=== PATIENT | female | born 1960 | race Caucasian/White ===

== ENCOUNTER 2023-11-21 13:05 | Inpatient (IN) | payer OTHER, SELFPAY ==
--- OUTSIDE RECORDS SUMMARY | 2023-11-21 13:12 | XMS REPORT | Continuity of Care Document ---
Author Name Unknown Address [address] [facility] [address] [place] [address] [facility] thconnect Address [address] [facility] [address] [place] [address] Care Team Providers Care Stenciler Name Role Phone Dvae Jesus Steen Primary Care Physician [phone] Micki Kennedy LVN Attending Clinician [phone] CECILIO LANGE Attending Clinician Unavailable Dilan Montemayor DO Attending Clinician [phone] Cecilio Lange MD Attending Clinician [phone] ADILIA GONZALEZ Attending Clinician Unavailable Adilia Gonzalez NP Attending Clinician [phone] Doctor Unassigned, [place] [facility] Attending Clinician U TIGIST Wahl Attending Clinician Unavailable Abida Haysise Attending Clinician [phone] DILAN MONTEMAYOR Attending Clinician Unavailable Renetta Attending Clinician Unavailable MIKEY CORTEZ Attending Clinician Unavailable Mikey Cortez MD Attending Clinician [phone] Josi MCDERMOTT, Amanda Dee Attending Clinician [phone] Mirta Santos Attending Clinician [phone] Namita Esposito MD Attending Clinician [phone] Sachin Caicedo MD Attending Clinician [phone] Mirta OJEDA Attending Clinician Unavailable Kady Armendariz MD Attending Clinician [phone] KADY ARMENDARIZ Attending Clinician Unavailable Rylan Garcia MD Attending Clinician [phone] Diana Maguire MD Attending Clinician [phone] RYLAN GARCIA Attending Clinician Unavailable CECILIO LANGE Admitting Clinician Unavailable Cecilio Lange MD Admitting Clinician [phone] ADILIA GONZALEZ Admitting Clinician Unavailable DILAN MONTEMAYOR Admitting Clinician Unavailable Renetta Admitting Clinician Unavailable MIKEY CORTEZ Admitting Clinician Unavailable Namita Esposito MD Admitting Clinician [phone] Mirta OJEDA Admitting Clinician Unavailable Diana Maguire MD Admitting Clinician [phone] KADY ARMENDARIZ Admitting Clinician Unavailable Payers Payer Name Policy Type Policy Number Effective Date Expirati on Date Source Problems Condition Name Condition Details Condition Category Status Onset Date Resolution Date Last Treatment Date Treating Clinician Comments Source Acute respirator y failure with hypoxia Acute respirator y failure with hypoxia Disease Active 02-13 00:00: 00 [facility] Hypoxia Hypoxia Disease Active 07-16 00:00: 00 [facility] Cellulitis of finger of right hand Cellulitis of finger of right hand Disease Active 2019-10 0 00:00: 00 [facility] Allergies, Adverse Reactions, Alerts Allergy Name Allergy Type Status Severity Reaction(s) Onset Date Inactive Date Treating Clinician Comments Source IBUPROFE N DRUG INGREDI Active Anaphylaxis 0 -13 00:00: 00 [facility] NSAIDS (NON-ATUL ROIDAL ANTI-INF LAMMATOR Y DRUG) Drug Class Active Anaphylaxis 2019-0 5-13 00:00: 00 [facility] Nsaids (Non-Atul roidal Anti-Inf lammator y Drug) Propensi ty to adverse reaction s Active Anaphylaxis 0 13 00:00: 00 [facility] Nsaids (Non-Atul roidal Anti-Inf lammator y Drug) Propensi ty to adverse reaction s Active Anaphylaxis 0 -13 00:00: 00 [facility] Ibuprofe n Propensi ty to adverse reaction s Active Anaphylaxis 0 03-08 00:00: 00 [facility] Nsaids (Non-Atul roidal Anti-Inf lammator y Drug) Propensi ty to adverse reaction s Active Anaphylaxis 0 03-08 00:00: 00 [facility] NSAIDS (NON-ATUL ROIDAL ANTI-INF LAMMATOR Y DRUG) Allergy to substanc e Active [facility] Social History Social Habit Start Date Stop Date Quantity Comments Source Sex Assigned At [facility] History of tobacco use Smokes tobacco daily [facility] History SDOH Alcohol Std Drinks [facility] History SDOH Alcohol Binge [facility] History SDOH Social Connections Get Together [facility] History SDOH Social Connections Judaism [facility] History SDOH Social Connections Membership [facility] History SDOH Social Connections Meetings [facility] Alcohol Frequency 2023-02-14 00:00:00 2023-02-14 00:00:00 1 [facility] History SDOH Social Connections Phone 2023-02-14 00:00:00 2023-02-14 00:00:00 5 [facility] History SDOH Social Connections Living 2023-02-14 00:00:00 2023-02-14 00:00:00 3 [facility] History SDOH Physical Activity DPW 2023-02-14 00:00:00 2023-02-14 00:00:00 3 [facility] History SDOH Physical Activity MPS 2023-02-14 00:00:00 2023-02-14 00:00:00 2 [facility] History SDOH Financial 2023-02-14 00:00:00 2023-02-14 00:00:00 5 [facility] History SDOH Food Worry 2023-02-14 00:00:00 2023-02-14 00:00:00 1 [facility] History SDOH Food Scarcity 2023-02-14 00:00:00 2023-02-14 00:00:00 1 [facility] History SDOH Transport Med 2023-02-14 00:00:00 2023-02-14 00:00:00 2 [facility] History SDOH Transport Non-Med 2023-02-14 00:00:00 2023-02-14 00:00:00 2 [facility] History SDOH Housing Unable to Pay 2023-02-14 00:00:00 2023-02-14 00:00:00 1 [facility] History SDOH Housing Places Lived 2023-02-14 00:00:00 2023-02-14 00:00:00 1 [facility] History SDOH Housing Homeless Last Year 2023-02-14 00:00:00 2023-02-14 00:00:00 2 [facility] History of Social function 2023-02-14 00:00:00 2023-02-14 00:00:00 [facility] Exposure to SARS-CoV-2 (event) 2023-02-03 00:00:00 2023-02-13 16:23:00 Not sure [facility] Education 2023-02-13 00:00:00 2023-02-13 00:00:00 13 [facility] Alcohol intake 2022-06-11 00:00:00 2022-06-11 00:00:00 Current drinker of alcohol (finding) [facility] Tobacco Comment 2020-08-20 00:00:00 2020-08-20 00:00:00 10 cig/day [facility] Tobacco use and exposure 2020-08-20 00:00:00 2020-08-20 00:00:00 Smokeless tobacco non-user [facility] Smoking Status Start Date Stop Date Source Unknown if ever smoked [facility] Smokes tobacco daily 2020-08-20 00:00:00 [facility] Medications Ordered Medication Name Filled Medication Name Start Date Stop Date Current Medication? Ordering Clinician Indication Dosage Frequency Signature (SIG) Comments Components Source nicotine 21 mg/24 hr patch 02-20 00:00: 00 03-21 04:59 :00 No [id number] 1{patch } Apply 1 Patch to area(s) every 24 (twenty-fo ur) hours for 28 days. [facility] nicotine 21 mg/24 hr patch 02-20 00:00: 00 03-21 04:59 :00 No [id number] 1{patch } Apply 1 Patch to area(s) every 24 (twenty-fo ur) hours for 28 days. [facility] predniSONE 20 mg tablet 02-20 00:00: 00 02-24 04:59 :00 No [id number] 40mg Take 2 tablets by mouth in the morning for 3 days. [facility] predniSONE 20 mg tablet 02-20 00:00: 00 02-24 04:59 :00 No [id number] 40mg Take 2 tablets by mouth in the morning for 3 days. [facility] omeprazole 20 mg capsule 02-19 16:02: 07 Yes 20mg Take 1 capsule by mouth in the morning. [facility] zolpidem (AMBIEN) 10 mg tablet 02-19 16:02: 07 Yes 10mg Take 1 tablet by mouth at bedtime as needed for Insomnia. [facility] HYDROcodone -acetaminop hen (NORCO) 10-325 mg tablet 02-19 16:02: 07 Yes 1{tbl} Take 1 tablet by mouth every 6 (six) hours as needed. [facility] omeprazole 20 mg capsule 02-19 16:02: 07 Yes 20mg Take 1 capsule by mouth in the morning. [facility] zolpidem (AMBIEN) 10 mg tablet 02-19 16:02: 07 Yes 10mg Take 1 tablet by mouth at bedtime as needed for Insomnia. [facility] HYDROcodone -acetaminop hen (NORCO) 10-325 mg tablet 02-19 16:02: 07 Yes 1{tbl} Take 1 tablet by mouth every 6 (six) hours as needed. [facility] omeprazole 20 mg capsule 02-19 16:02: 07 Yes 20mg Take 1 capsule by mouth in the morning. [facility] levoFLOXaci n (LEVAQUIN) tablet 750 mg 02-19 00:30: 00 02-22 00:29 :00 No 750mg 750 mg, Oral, Q24H ABX, 3 doses, First dose on Fri02/18/23 at 1930, Last dose on Fri02/20/23 at 1930, Routine
Reason for Anti-Infec tive: Documented Infection< br>Documen david Infection Site: Respirator y
Durat ion of Therapy: 7 days [facility] albuterol 90 mcg/actuati on inhaler 02-19 00:00: 00 03-22 04:59 :00 No [id number] 2{puff} Inhale 2 Puffs every 6 (six) hours as needed for Wheezing or Shortness of Breath for up to 30 days. [facility] ipratropium -albuteroL 0.5 mg-3 mg(2.5 mg base)/3 mL nebulizer solution 02-19 00:00: 00 03-22 04:59 :00 No [id number] 3mL Inhale 3 mL 4 (four) times daily for 30 days. [facility] albuterol 90 mcg/actuati on inhaler 02-19 00:00: 00 03-22 04:59 :00 No [id number] 2{puff} Inhale 2 Puffs every 6 (six) hours as needed for Wheezing or Shortness of Breath for up to 30 days. [facility] ipratropium -albuteroL 0.5 mg-3 mg(2.5 mg base)/3 mL nebulizer solution 02-19 00:00: 00 03-22 04:59 :00 No [id number] 3mL Inhale 3 mL 4 (four) times daily for 30 days. [facility] levoFLOXaci n 750 mg tablet 02-19 00:00: 00 02-22 04:59 :00 No [id number] 750mg Take 1 tablet by mouth every 24 (twenty-fo ur) hours for 2 days. [facility] levoFLOXaci n 750 mg tablet 02-19 00:00: 00 02-22 04:59 :00 No [id number] 750mg Take 1 tablet by mouth every 24 (twenty-fo ur) hours for 2 days. [facility] codeine-gua ifenesin (ROBITUSSIN AC) 10-100 mg/5 mL oral solution 5 mL 02-16 07:00: 00 Yes 5mL 5 mL, Oral, Q6HPRN, Starting on Fri02/16/23 at 0200, Until Discontinu ed, Routine, Cough [facility] ipratropium (ATROVENT) 0.02 % nebulizer solution 0.5 mg 02-15 01:00: 00 Yes .5mg 0.5 mg, Inhalation , TID, First dose (after last modificati on) on Fri02/14/23 at 2000, Until Discontinu ed, Routine [facility] predniSONE (DELTASONE) tablet 40 mg 02-14 23:00: 00 Yes 40mg 40 mg, Oral, DAILY, First dose on Fri02/14/23 at 1800, Until Discontinu ed, Routine [facility] cefTRIAXone (ROCEPHIN) 1,000 mg in NaCl 0.9% (NS) 100 mL MINI-BAG 02-14 22:30: 00 02-20 22:29 :00 No 1000mg 1,000 mg, IV Piggyback, Q24H ABX, 6 doses, First dose on Fri02/14/23 at 1730, Last dose on Fri02/19/23 at 1730, Administer over 30 Minutes, 100 mL
Reas on for Anti-Infec tive: Documented Infection< br>Documen david Infection Site: Respirator y
Durat ion of Therapy: 7 days [facility] levalbutero l (XOPENEX) nebulizer solution 0.63 mg 02-14 19:00: 00 Yes .63mg 0.63 mg, Inhalation , TID, First dose on Fri02/14/23 at 1400, Until Discontinu ed, Routine [facility] nicotine (NICODERM) 21 mg/24 hr patch 1 Patch 02-14 18:15: 00 Yes 1{patch } 1 Patch, Topical, Administer over 24 Hours, Q24H, First dose on Fri02/14/23 at 1315, Until Discontinu ed, Routine [facility] morpHINE (2 mg/mL) injection 2 mg 02-14 18:15: 00 02-14 17:30 :00 No 2mg 2 mg, Slow IV Push, ONCE, 1 dose, On Fri02/14/23 at 1315, Routine [facility] codeine-gua ifenesin (ROBITUSSIN AC) 10-100 mg/5 mL oral solution 5 mL 02-14 17:30: 00 02-16 06:57 :51 No 5mL 5 mL, Oral, QHSPRN, Starting on Fri02/14/23 at 1230, Until Fri02/16/23 at 0157, Routine, Cough [facility] ipratropium (ATROVENT) 0.02 % nebulizer solution 0.5 mg 02-14 17:30: 00 02-14 19:44 :14 No .5mg 0.5 mg, Inhalation , QID, First dose on Fri02/14/23 at 1230, Until Discontinu ed, Routine [facility] enoxaparin (LOVENOX) injection 40 mg 02-14 14:00: 00 Yes 40mg 40 mg, Subcutaneo us, DAILY, First dose on Fri02/14/23 at 0900, Until Discontinu ed, [facility] omep[facility] (PRILOSEC) capsule 20 mg 02-14 14:00: 00 Yes 20mg 20 mg, Oral, DAILY, First dose on Fri02/14/23 at 0900, Until Discontinu ed, Routine [facility] tuberculin ppd (TUBERSOL) injection 5 Units 02-14 14:00: 00 02-14 14:00 :00 No 5U 5 Units, Intraderma l, ONCE, 1 dose, On Fri02/14/23 at 0900, Routine [facility] NaCl 0.9% (NS) IV infusion 1,000 mL 02-14 11:15: 00 02-14 15:13 :00 No 1000mL at 75 mL/hr, IV Infusion, ONCE, 1 dose, On Fri02/14/23 at 0615, Routine [facility] HYDROcodone -acetaminop hen (NORCO) 10-325 mg tablet 1 tablet 02-14 10:15: 13 Yes 1{tbl} 1 tablet, Oral, Q6HPRN, Starting on Fri02/14/23 at 0515, Until Discontinu ed, Routine, Pain (scale 7-10) [facility] codeine-gua ifenesin (ROBITUSSIN AC) 10-100 mg/5 mL oral solution 5 mL 02-14 07:49: 44 02-14 17:23 :58 No 5mL 5 mL, Oral, Q6HPRN, Starting on Fri02/14/23 at 0249, Until Fri02/14/23 at 1223, Routine, Cough [facility] zolpidem (AMBIEN) tablet 10 mg 02-14 02:16: 33 Yes 10mg 10 mg, Oral, QHSPRN, Starting on Fri02/13/23 at 2115, Until Discontinu ed, Routine, Insomnia [facility] ondansetron (ZOFRAN (PF)) injection 4 mg 02-14 02:15: 39 Yes 4mg 4 mg, Slow IV Push, Q6HPRN, Starting on Fri02/13/23 at 211, Until Discontinu ed, Routine, Nausea and Vomiting (N/V) [facility] HYDROcodone -acetaminop hen (NORCO) 10-325 mg tablet 1 tablet 02-14 02:15: 31 02-14 09:38 :25 No 1{tbl} 1 tablet, Oral, Q6HPRN, Starting on Fri02/13/23 at 2115, Until Fri02/14/23 at 0438, Routine, Pain (scale 7-10) [facility] HYDROcodone -acetaminop hen (NORCO 5) 5-325 mg tablet 1 tablet 02-14 02:15: 20 Yes 1{tbl} 1 tablet, Oral, Q6HPRN, Starting on Fri02/13/23 at 2114, Until Discontinu ed, Routine, Pain (scale 4-6) [facility] acetaminoph en (TYLENOL) tablet 650 mg 02-14 02:15: 17 Yes 650mg 650 mg, Oral, Q6HPRN, Starting on Fri02/13/23 at 2114, Until Discontinu ed, Routine, Pain (scale 1-3) [facility] azithromyci n (ZITHROMAX) 500 mg in NaCl 0.9% (NS) 250 mL VIAL-MATE IV piggyback 02-13 23:45: 00 02-16 00:44 :00 No 500mg 500 mg, IV Piggyback, Q24H ABX, 3 doses, First dose on Fri02/13/23 at 1845, Last dose on Fri02/15/23 at 1845, Administer over 60 Minutes, 250 mL
Reas on for Anti-Infec tive: Documented Infection< br>Documen david Infection Site: Respirator y
Durat ion of Therapy: Other (see Comments) [facility] ipratropium -albuteroL (DUONEB) 0.5 mg-3 mg(2.5 mg base)/3 mL nebulizer solution 3 mL 02-13 23:15: 00 02-13 22:12 :00 No 3mL 3 mL, Inhalation , ONCE, 1 dose, On Lara 02/13/23 at 1815, Routine [facility] methylpredn isolone sod succ (SOLU-MEDRO L) injection 125 mg 02-13 23:00: 00 02-13 22:15 :00 No 125mg 125 mg, Intravenou s, ONCE NOW, 1 dose, On Lara 02/13/23 at 1800, Routine [facility] cefTRIAXone (ROCEPHIN) 1,000 mg in NaCl 0.9% (NS) 100 mL MINI-BAG 02-13 22:00: 00 02-13 23:01 :00 No 1000mg 1,000 mg, IV Piggyback, ONCE, 1 dose, On Lara 02/13/23 at 1700, Administer over 30 Minutes, 100 mL
Reas on for Anti-Infec tive: Empiric Therapy for Suspected Infection< br>Empiric Therapy Site: Respirator y
Durat ion of therapy: 72 hours [facility] ondansetron (ZOFRAN (PF)) injection 4 mg 02-13 21:45: 00 02-13 21:31 :00 No 4mg 4 mg, Slow IV Push, ONCE, 1 dose, On Lara 02/13/23 at 1645, MALLORIE [facility] iopamidol (ISOVUE 370-500 mL) injection 70 mL 02-13 21:39: 00 02-13 21:40 :00 No [id number] 70mL 70 mL, Intravenou s, ONCE, 1 dose, On Lara 02/13/23 at 1700, Routine [facility] acetaminoph en (TYLENOL) tablet 1,000 mg 02-13 21:30: 00 02-13 21:31 :00 No 1000mg 1,000 mg, Oral, ONCE, 1 dose, On Lara 02/13/23 at 1645, [facility] magnesium sulfate in water 2 gram/50 mL (4 %) infusion 2 g 2021-10 203 08:15: 00 09-28 08:37 :00 No 2g 2 g, IV Piggyback, Administer over 60 Minutes, ONCE, 1 dose, On 09/28/22 at 0215, Routine [facility] butalbital- acetaminoph en-caff (ESGIC) 50-325-40 mg tablet 2 tablet 2021-10 08:15: 00 09-28 07:41 :00 No 2{tbl} 2 tablet, Oral, ONCE, 1 dose, On 09/28/22 at 0215, Routine [facility] traMADoL (ULTRAM) tablet 50 mg 2021-10 07:15: 00 09-28 06:22 :00 No 50mg 50 mg, Oral, ONCE, 1 dose, On 09/28/22 at 0115, Routine [facility] ipratropium -albuteroL (DUONEB) 0.5 mg-3 mg(2.5 mg base)/3 mL nebulizer solution 3 mL 2021-10 07:00: 00 09-28 06:52 :00 No 3mL 3 mL, Inhalation , ONCE, 1 dose, On 09/28/22 at 0100, Routine [facility] cefTRIAXone (ROCEPHIN) 1,000 mg in NaCl 0.9% (NS) 50 mL MINI-BAG 2021-10 06:15: 00 09-28 06:53 :00 No 1000mg 1,000 mg, IV Piggyback, ONCE, 1 dose, On 09/28/22 at 0015, Administer over 30 Minutes, 50 mL
Reas on for Anti-Infec tive: Documented Infection< br>Documen david Infection Site: Respirator y
Durat ion of Therapy: 7 days [facility] methylpredn isolone sod succ (SOLU-MEDRO L) injection 120 mg 2021-10 06:15: 00 09-28 06:28 :00 No 120mg 120 mg, Intravenou s, ONCE, 1 dose, On 09/28/22 at 0015, MALLORIE [facility] zolpidem (AMBIEN) 10 mg tablet 2021-10 00:47: 18 09-28 00:00 :00 No 10mg Take 10 mg by mouth at bedtime as needed for Insomnia. [facility] HYDROcodone -acetaminop hen (NORCO) 10-325 mg tablet 2021-10 00:47: 18 09-28 00:00 :00 No 1{tbl} Take 1 tablet by mouth every 6 (six) hours as needed for Pain (scale 7-10). [facility] benzonatate 100 mg capsule 2021-10 00:00: 00 Yes [id number] 200mg Take 2 capsules by mouth 3 (three) times daily as needed for Cough. [facility] butalbital- acetaminoph en-caff 50-325-40 mg tablet 2021-10 00:00: 00 Yes [id number] 1{tbl} Take 1 tablet by mouth every 4 (four) hours as needed for Pain (scale 4-6) or Pain (scale 7-10). [facility] butalbital- acetaminoph en-caff 50-325-40 mg tablet 2021-10 00:00: 00 Yes [id number] 1{tbl} Take 1 tablet by mouth every 4 (four) hours as needed for Pain (scale 4-6) or Pain (scale 7-10). [facility] butalbital- acetaminoph en-caff 50-325-40 mg tablet 2021-10 00:00: 00 Yes [id number] 1{tbl} Take 1 tablet by mouth every 4 (four) hours as needed for Pain (scale 4-6) or Pain (scale 7-10). [facility] benzonatate 100 mg capsule 2021-10 00:00: 00 02-19 00:00 :00 No [id number] 6 200mg Take 2 capsules by mouth 3 (three) times daily as needed for Cough. [facility] levoFLOXaci n 750 mg tablet 2021-10 00:00: 00 10-06 05:59 :00 No [id number] 750mg Take 1 tablet by mouth every 24 (twenty-fo ur) hours for 7 days. [facility] predniSONE 20 mg tablet 2021-10 2- 00:00: 00 10-04 05:59 :00 No [id number] 6 20mg Take 1 tablet by mouth in the morning and 1 tablet in the evening. Do all this for 5 days. [facility] predniSONE 20 mg tablet 07-03 00:00: 00 Yes [id number] 60mg Take 3 tablets by mouth in the morning. [facility] predniSONE 20 mg tablet 07-03 00:00: 00 09-28 00:00 :00 No [id number] 60mg Take 3 tablets by mouth in the morning. [facility] predniSONE 20 mg tablet 07-03 00:00: 00 07-02 00:00 :00 No [id number] 60mg Take 3 tablets by mouth in the morning for 4 days. [facility] methylpredn isolone sod succ (SOLU-MEDRO L) injection 125 mg 07-02 22:45: 00 07-02 22:13 :00 No 125mg 125 mg, Intravenou s, ONCE, 1 dose, On Fri07/02/22 at 1745, 2 mL [facility] diphenhydrA MINE (BENADRYL) 12.5 mg/5 mL solution 12.5 mg 07-02 22:00: 00 07-02 22:11 :00 No 12.5mg 12.5 mg, Oral, ONCE, 1 dose, On Fri07/02/22 at 1700, MALLORIE [facility] famotidine (PEPCID (PF)) injection 20 mg 07-02 22:00: 00 07-02 22:13 :00 No 20mg 20 mg, Slow IV Push, ONCE, 1 dose, On Fri07/02/22 at 1700, MALLORIE [facility] morpHINE (4 mg/mL) injection 4 mg 814 09:03: 00 06-09 09:06 :00 No 4mg 4 mg, Slow IV Push, ONCE, 1 dose, On Fri06/09/22 at 0415, [facility] morpHINE (4 mg/mL) injection 4 mg 06-09 09:00: 00 06-09 08:00 :00 No 4mg 4 mg, Slow IV Push, ONCE, 1 dose, On Fri06/09/22 at 0400, Routine [facility] ondansetron (ZOFRAN (PF)) injection 4 mg 06-09 09:00: 00 06-09 08:00 :00 No 4mg 4 mg, Slow IV Push, ONCE, 1 dose, On Fri06/09/22 at 0400, Routine [facility] pantoprazol e (PROTONIX) 80 mg in NaCl 0.9% (NS) 20 mL syringe 06-09 09:00: 00 06-09 08:02 :00 No 80mg 80 mg, IV Push, ONCE, 1 dose, On Fri06/09/22 at 0400, Administer over 2 Minutes, 20 mL [facility] iohexol (OMNIPAQUE 350 BULK-75 mL) injection 70 mL 06-09 08:30: 00 06-09 08:15 :00 No [id number] 70mL 70 mL, Intravenou s, ONCE, 1 dose, On Fri06/09/22 at 0330, Routine [facility] NaCl 0.9% (NS) bolus infusion 500 mL 06-09 08:00: 00 06-09 09:14 :00 No 500mL at 999 mL/hr, 500 mL, IV Infusion, ONCE, 1 dose, On Fri06/09/22 at 0300, STAT [facility] tamsulosin 0.4 mg 24 hr capsule 06-09 00:00: 00 Yes [id number] .4mg Take 1 capsule by mouth at bedtime. [facility] ondansetron 4 mg disintegrat ing tablet 06-09 00:00: 00 Yes [id number] 4mg Take 1 tablet by mouth every 8 (eight) hours as needed for Nausea and Vomiting (N/V). [facility] tamsulosin 0.4 mg 24 hr capsule 06-09 00:00: 00 Yes [id number] .4mg Take 1 capsule by mouth at bedtime. [facility] ondansetron 4 mg disintegrat ing tablet 06-09 00:00: 00 Yes [id number] 4mg Take 1 tablet by mouth every 8 (eight) hours as needed for Nausea and Vomiting (N/V). [facility] tamsulosin 0.4 mg 24 hr capsule 06-09 00:00: 00 09-28 00:00 :00 No [id number] .4mg Take 1 capsule by mouth at bedtime. [facility] ondansetron 4 mg disintegrat ing tablet 06-09 00:00: 00 09-28 00:00 :00 No [id number] 4mg Take 1 tablet by mouth every 8 (eight) hours as needed for Nausea and Vomiting (N/V). [facility] HYDROcodone -acetaminop hen (NORCO) 10-325 mg tablet 1 tablet 05-02 00:45: 00 05-02 00:05 :00 No 1{tbl} 1 tablet, Oral, ONCE NOW, 1 dose, On Fri05/01/22 at 1945, Routine [facility] iopamidol (ISOVUE 370-500 mL) injection 60 mL 05-02 00:34: 00 05-02 00:34 :00 No [id number] 60mL 60 mL, Intravenou s, ONCE, 1 dose, On Fri05/01/22 at 1945, Routine [facility] ondansetron (ZOFRAN (PF)) injection 4 mg 05-01 23:45: 00 05-02 00:05 :00 No 4mg 4 mg, Slow IV Push, ONCE, 1 dose, On Fri05/01/22 at 1845, MALLORIE [facility] acetaminoph en-codeine 300-30 mg tablet 05-01 00:00: 00 05-30 04:59 :00 No [id number] 1{tbl} Take 1 tablet by mouth every 6 (six) hours as needed for Pain (scale 4-6) for up to 28 days. Indication s: acute pain [facility] omeprazole 20 mg capsule 07-18 17:57: 37 Yes 20mg Take 20 mg by mouth daily. [facility] zolpidem (AMBIEN) 10 mg tablet 07-18 17:57: 37 Yes 10mg Take 10 mg by mouth at bedtime as needed for Insomnia. [facility] HYDROcodone -acetaminop hen (NORCO) 10-325 mg tablet 07-18 17:57: 37 Yes 1{tbl} Take 1 tablet by mouth every 6 (six) hours as needed for Pain (scale 7-10). [facility] omeprazole 20 mg capsule 07-18 17:57: 37 Yes 20mg Take 20 mg by mouth daily. [facility] zolpidem (AMBIEN) 10 mg tablet 07-18 17:57: 37 Yes 10mg Take 10 mg by mouth at bedtime as needed for Insomnia. [facility] HYDROcodone -acetaminop hen (NORCO) 10-325 mg tablet 07-18 17:57: 37 Yes 1{tbl} Take 1 tablet by mouth every 6 (six) hours as needed for Pain (scale 7-10). [facility] omeprazole 20 mg capsule 07-18 17:57: 37 Yes 20mg Take 20 mg by mouth daily. [facility] zolpidem (AMBIEN) 10 mg tablet 07-18 17:57: 37 Yes 10mg Take 10 mg by mouth at bedtime as needed for Insomnia. [facility] HYDROcodone -acetaminop hen (NORCO) 10-325 mg tablet 07-18 17:57: 37 Yes 1{tbl} Take 1 tablet by mouth every 6 (six) hours as needed for Pain (scale 7-10). [facility] omeprazole 20 mg capsule 07-18 17:57: 37 Yes 20mg Take 20 mg by mouth daily. [facility] zolpidem (AMBIEN) 10 mg tablet 07-18 17:57: 37 Yes 10mg Take 10 mg by mouth at bedtime as needed for Insomnia. [facility] HYDROcodone -acetaminop hen (NORCO) 10-325 mg tablet 07-18 17:57: 37 Yes 1{tbl} Take 1 tablet by mouth every 6 (six) hours as needed for Pain (scale 7-10). [facility] omeprazole 20 mg capsule 07-18 17:57: 37 Yes 20mg Take 20 mg by mouth daily. [facility] zolpidem (AMBIEN) 10 mg tablet 07-18 17:57: 37 Yes 10mg Take 10 mg by mouth at bedtime as needed for Insomnia. [facility] HYDROcodone -acetaminop hen (NORCO) 10-325 mg tablet 07-18 17:57: 37 Yes 1{tbl} Take 1 tablet by mouth every 6 (six) hours as needed for Pain (scale 7-10). [facility] omeprazole 20 mg capsule 07-18 17:57: 37 Yes 20mg Take 20 mg by mouth daily. [facility] zolpidem (AMBIEN) 10 mg tablet 07-18 17:57: 37 Yes 10mg Take 10 mg by mouth at bedtime as needed for Insomnia. [facility] HYDROcodone -acetaminop hen (NORCO) 10-325 mg tablet 07-18 17:57: 37 Yes 1{tbl} Take 1 tablet by mouth every 6 (six) hours as needed for Pain (scale 7-10). [facility] omeprazole 20 mg capsule 07-18 17:57: 37 Yes 20mg Take 20 mg by mouth daily. [facility] nicotine (NICODERM) 14 mg/24 hr patch 1 Patch 07-18 04:00: 00 Yes 1{patch } 1 Patch, Topical, Administer over 24 Hours, Q24H, First dose on Fri07/17/21 at 2300, Until Discontinu ed, Routine [facility] zolpidem (AMBIEN) tablet 10 mg 07-18 03:11: 54 Yes 10mg 10 mg, Oral, QHSPRN, Starting on Fri07/17/21 at 2211, Until Discontinu ed, M[place]ORIE, Insomnia [facility] ipratropium -albuteroL 0.5 mg-3 mg(2.5 mg base)/3 mL nebulizer solution 07-18 00:00: 00 Yes [id number] 3mL Inhale 3 mL 4 (four) times daily. [facility] azithromyci n 250 mg tablet 07-18 00:00: 00 Yes [id number] 250mg Take 1 tablet by mouth daily. Take 500 mg day 1, then 250 mg days 2 to 5. [facility] ipratropium -albuteroL 0.5 mg-3 mg(2.5 mg base)/3 mL nebulizer solution 07-18 00:00: 00 Yes [id number] 3mL Inhale 3 mL 4 (four) times daily. [facility] azithromyci n 250 mg tablet 07-18 00:00: 00 Yes [id number] 250mg Take 1 tablet by mouth daily. Take 500 mg day 1, then 250 mg days 2 to 5. [facility] ipratropium -albuteroL 0.5 mg-3 mg(2.5 mg base)/3 mL nebulizer solution 07-18 00:00: 00 Yes [id number] 3mL Inhale 3 mL 4 (four) times daily. [facility] azithromyci n 250 mg tablet 07-18 00:00: 00 Yes [id number] 250mg Take 1 tablet by mouth daily. Take 500 mg day 1, then 250 mg days 2 to 5. [facility] ipratropium -albuteroL 0.5 mg-3 mg(2.5 mg base)/3 mL nebulizer solution 07-18 00:00: 00 Yes [id number] 3mL Inhale 3 mL 4 (four) times daily. [facility] azithromyci n 250 mg tablet 07-18 00:00: 00 Yes [id number] 250mg Take 1 tablet by mouth daily. Take 500 mg day 1, then 250 mg days 2 to 5. [facility] ipratropium -albuteroL 0.5 mg-3 mg(2.5 mg base)/3 mL nebulizer solution 07-18 00:00: 00 Yes [id number] 3mL Inhale 3 mL 4 (four) times daily. [facility] azithromyci n 250 mg tablet 07-18 00:00: 00 Yes [id number] 250mg Take 1 tablet by mouth daily. Take 500 mg day 1, then 250 mg days 2 to 5. [facility] ipratropium -albuteroL 0.5 mg-3 mg(2.5 mg base)/3 mL nebulizer solution 07-18 00:00: 00 Yes [id number] 3mL Inhale 3 mL 4 (four) times daily. [facility] azithromyci n 250 mg tablet 07-18 00:00: 00 Yes [id number] 250mg Take 1 tablet by mouth daily. Take 500 mg day 1, then 250 mg days 2 to 5. [facility] ipratropium -albuteroL 0.5 mg-3 mg(2.5 mg base)/3 mL nebulizer solution 07-18 00:00: 00 Yes [id number] 3mL Inhale 3 mL 4 (four) times daily. [facility] ipratropium -albuteroL 0.5 mg-3 mg(2.5 mg base)/3 mL nebulizer solution 07-18 00:00: 00 02-19 00:00 :00 No [id number] 3mL Inhale 3 mL 4 (four) times daily. [facility] azithromyci n 250 mg tablet 07-18 00:00: 00 09-28 00:00 :00 No [id number] 250mg Take 1 tablet by mouth daily. Take 500 mg day 1, then 250 mg days 2 to 5. [facility] predniSONE 20 mg tablet 2021-0 9-22 00:00: 00 07-24 04:59 :00 No [id number] 20mg Take 1 tablet by mouth daily for 5 days. [facility] predniSONE 20 mg tablet 07-18 00:00: 00 07-24 04:59 :00 No [id number] 20mg Take 1 tablet by mouth daily for 5 days. [facility] iopamidol (ISOVUE 300-500 mL) injection 100 mL 07-17 22:30: 00 07-17 23:14 :00 No [id number] 100mL 100 mL, Intravenou s, ONCE, 1 dose, On Fri07/17/21 at 1730, Routine [facility] zolpidem (AMBIEN) tablet 5 mg 07-17 04:30: 00 07-17 03:38 :00 No 5mg 5 mg, Oral, ONCE, 1 dose, On Fri07/16/21 at 2330, [place] [facility] methylPREDN ISolone sod succ (SOLU-MEDRO L (PF)) injection 20 mg 07-17 01:00: 00 Yes 20mg 20 mg, Intravenou s, Q12H, First dose on Fri07/16/21 at 2000, Until Discontinu ed, Routine [facility] heparin (porcine) injection 5,000 Units 07-16 19:00: 00 Yes 5000U 5,000 Units, Subcutaneo us, Q8H, First dose on Fri07/16/21 at 1400, Until Discontinu ed, Routine [facility] ceFEPIme (MAXIPIME) 1,000 mg in NaCl 0.9% (NS) 50 mL MINI-BAG 07-16 17:15: 00 Yes 1000mg 1,000 mg, IV Piggyback, Q12H ABX, First dose on Fri07/16/21 at 1215, Until Discontinu ed, Administer over 30 Minutes, 50 mL
Reas on for Anti-Infec tive: Empiric Therapy for Suspected Infection& lt;br>Empi vinay Therapy Site: Respirator y
Durat ion of therapy: 72 hours [facility] sulfur hexafluorid e microsphr (LUMASON) injection 5 mL 07-16 16:00: 00 07-16 16:00 :00 No [id number] 5mL 5 mL, Intravenou s, ONCE, 1 dose, On Fri07/16/21 at 1100, Routine
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 Restricted medication : SHOLA GUTIERREZ [facility] methylpredn isolone sod succ (SOLU-MEDRO L) injection 125 mg 07-16 13:00: 00 07-16 13:25 :00 No 125mg 125 mg, Slow IV Push, ONCE NOW, 1 dose, On Fri07/16/21 at 0800 [facility] furosemide (LASIX) injection 40 mg 07-16 12:15: 00 07-16 11:21 :00 No 40mg 40 mg, Slow IV Push, ONCE, 1 dose, On Fri07/16/21 at 0715, Routine [facility] ondansetron (ZOFRAN (PF)) injection 4 mg 07-16 11:50: 05 Yes 4mg 4 mg, Slow IV Push, Q6HPRN, Starting on Fri07/16/21 at 0650, Until Discontinu ed, Routine, Nausea and Vomiting (N/V) [facility] acetaminoph en (TYLENOL) tablet 650 mg 07-16 11:49: 53 Yes 650mg 650 mg, Oral, Q6HPRN, Starting on Fri07/16/21 at 0649, Until Discontinu ed, Routine, Pain (scale 1-3) [facility] morpHINE injection 2 mg 07-16 11:12: 31 Yes 2mg 2 mg, Slow IV Push, Q4HPRN, Starting on Fri07/16/21 at 0612, Until Discontinu ed, Routine, Pain (scale 7-10) [facility] ondansetron (ZOFRAN (PF)) injection 4 mg 07-16 07:45: 00 07-16 06:37 :00 No 4mg 4 mg, Slow IV Push, ONCE, 1 dose, On Fri07/16/21 at 0245, [place] [facility] morpHINE injection 2 mg 07-16 07:45: 00 07-16 06:37 :00 No 2mg 2 mg, Slow IV Push, ONCE, 1 dose, On Fri07/16/21 at 0245, STAT [facility] nitroglycer in (NITROL) 2 % ointment 0.5 Inch 07-16 05:30: 00 07-16 04:27 :00 No .5[in_u s] 0.5 Inch, Transderma l (Apply To Skin), ONCE, 1 dose, [facility]16[facility] 0030[facility] 4 mg 07-16 04:00: 00 07-16 03:03 :00 No 4mg 4 mg, Slow IV Push, ONCE, 1 dose, [facility]15/21 at 2300[facility] -albuteroL (DUONEB) 0.5 mg-3 mg(2.5 mg base)/3 mL nebulizer solution 3 mL 07-16 03:45: 00 Yes 3mL 3 mL, Inhalation , QID, First dose on Fri07/15/21 at 2245, Until Discontinu ed, Routine [facility] iopamidol (ISOVUE 370-500 mL) injection 100 mL 07-16 03:30: 00 07-16 02:15 :00 No [id number] 100mL 100 mL, Intravenou s, ONCE, 1 dose, On Fri07/15/21 at 2230, Routine [facility] magnesium sulfate in water 2 gram/50 mL (4 %) infusion 2 g 07-16 03:00: 00 07-16 03:03 :00 No 2g 2 g, IV Piggyback, ONCE, 1 dose, On Fri07/15/21 at 2200, Routine [facility] methylpredn isolone sod succ (SOLU-MEDRO L) injection 125 mg 07-16 03:00: 00 07-16 02:10 :00 No 125mg 125 mg, Slow IV Push, ONCE, 1 dose, On Fri07/15/21 at 2200, [facility] morpHINE injection 4 mg 07-16 03:00: 00 07-16 02:24 :00 No 4mg 4 mg, Slow IV Push, ONCE, 1 dose, On Fri07/15/21 at 2200, [facility] ondansetron (ZOFRAN (PF)) injection 4 mg 07-16 02:45: 00 07-16 01:41 :00 No 4mg 4 mg, Slow IV Push, ONCE, 1 dose, On Fri07/15/21 at 2145, [facility] ipratropium -albuteroL (DUONEB) 0.5 mg-3 mg(2.5 mg base)/3 mL nebulizer solution 3 mL 07-09 06:45: 00 07-09 06:30 :00 No 3mL 3 mL, Inhalation , ONCE, 1 dose, On Fri07/09/21 at 0145, [facility] ipratropium -albuteroL (DUONEB) 0.5 mg-3 mg(2.5 mg base)/3 mL nebulizer solution 3 mL 07-09 06:45: 00 07-09 06:30 :00 No 3mL 3 mL, Inhalation , ONCE, 1 dose, On Fri07/09/21 at 0145, [facility] ipratropium -albuteroL (DUONEB) 0.5 mg-3 mg(2.5 mg base)/3 mL nebulizer solution 3 mL 07-09 05:00: 00 07-09 04:16 :00 No 3mL 3 mL, Inhalation , ONCE, 1 dose, On Fri07/09/21 at 0000, [facility] ipratropium -albuteroL (DUONEB) 0.5 mg-3 mg(2.5 mg base)/3 mL nebulizer solution 3 mL 07-09 05:00: 07-09 04:16 :00 No 3mL 3 mL, Inhalation , ONCE, 1 dose, On 07/09/21 at 0000, [facility] dexamethaso ne (DECADRON PHOSPHATE) injection 10 mg 07-09 03:39: 00 07-09 03:45 :00 No 10mg 10 mg, IV Push, ONCE, 1 dose, On 07/08/21 at 2245, [facility] dexamethaso ne (DECADRON PHOSPHATE) injection 10 mg 07-09 03:39: 00 07-09 03:45 :00 No 10mg 10 mg, IV Push, ONCE, 1 dose, On 07/08/21 at 2245, [facility] acetaminoph en (TYLENOL) tablet 650 mg 07-09 03:15: 00 07-09 02:15 :00 No 650mg 650 mg, Oral, ONCE, 1 dose, On 07/08/21 at 2215, [facility] ondansetron (ZOFRAN (PF)) injection 4 mg 07-09 03:15: 00 07-09 02:15 :00 No 4mg 4 mg, Slow IV Push, ONCE, 1 dose, On 07/08/21 at 2215, [facility] acetaminoph en (TYLENOL) tablet 650 mg 07-09 03:15: 00 07-09 02:15 :00 No 650mg 650 mg, Oral, ONCE, 1 dose, On 07/08/21 at 2215, [facility] ondansetron (ZOFRAN (PF)) injection 4 mg 07-09 03:15: 00 07-09 02:15 :00 No 4mg 4 mg, Slow IV Push, ONCE, 1 dose, On 07/08/21 at 2215, [facility] albuterol 90 mcg/actuati on inhaler 07-09 00:00: 00 Yes [id number] 2{puff} Inhale 2 Puffs every 4 (four) hours as needed for Wheezing or Shortness of Breath. [facility] ben[facility] mg capsule 07-09 00:00: 00 Yes [id number] 100mg Take 1 capsule by mouth 3 (three) times daily as needed for Cough. [facility] albuterol 90 mcg/actuati on inhaler 07-09 00:00: 00 Yes [id number] 2{puff} Inhale 2 Puffs every 4 (four) hours as needed for Wheezing or Shortness of Breath. [facility] benzonatate 100 mg capsule 07-09 00:00: 00 Yes [id number] 100mg Take 1 capsule by mouth 3 (three) times daily as needed for Cough. [facility] albuterol 90 mcg/actuati on inhaler 07-09 00:00: 00 Yes [id number] 2{puff} Inhale 2 Puffs every 4 (four) hours as needed for Wheezing or Shortness of Breath. [facility] benzonatate 100 mg capsule 07-09 00:00: 00 Yes [id number] 100mg Take 1 capsule by mouth 3 (three) times daily as needed for Cough. [facility] albuterol 90 mcg/actuati on inhaler 07-09 00:00: 00 Yes [id number] 2{puff} Inhale 2 Puffs every 4 (four) hours as needed for Wheezing or Shortness of Breath. [facility] benzonatate 100 mg capsule 07-09 00:00: 00 Yes [id number] 100mg Take 1 capsule by mouth 3 (three) times daily as needed for Cough. [facility] albuterol 90 mcg/actuati on inhaler 07-09 00:00: 00 Yes [id number] 2{puff} Inhale 2 Puffs every 4 (four) hours as needed for Wheezing or Shortness of Breath. [facility] benzonatate 100 mg capsule 07-09 00:00: 00 Yes [id number] 100mg Take 1 capsule by mouth 3 (three) times daily as needed for Cough. [facility] albuterol 90 mcg/actuati on inhaler 07-09 00:00: 00 Yes [id number] 2{puff} Inhale 2 Puffs every 4 (four) hours as needed for Wheezing or Shortness of Breath. [facility] benzonatate 100 mg capsule 07-09 00:00: 00 Yes [id number] 100mg Take 1 capsule by mouth 3 (three) times daily as needed for Cough. [facility] albuterol 90 mcg/actuati on inhaler 07-09 00:00: 00 Yes [id number] 2{puff} Inhale 2 Puffs every 4 (four) hours as needed for Wheezing or Shortness of Breath. [facility] benzonatate 100 mg capsule 07-09 00:00: 00 Yes [id number] 100mg Take 1 capsule by mouth 3 (three) times daily as needed for Cough. [facility] albuterol 90 mcg/actuati on inhaler 07-09 00:00: 00 Yes [id number] 2{puff} Inhale 2 Puffs every 4 (four) hours as needed for Wheezing or Shortness of Breath. [facility] benzonatate 100 mg capsule 07-09 00:00: 00 Yes [id number] 100mg Take 1 capsule by mouth 3 (three) times daily as needed for Cough. [facility] albuterol 90 mcg/actuati on inhaler 07-09 00:00: 00 Yes [id number] 2{puff} Inhale 2 Puffs every 4 (four) hours as needed for Wheezing or Shortness of Breath. [facility] albuterol 90 mcg/actuati on inhaler 07-09 00:00: 00 02-19 00:00 :00 No [id number] 2{puff} Inhale 2 Puffs every 4 (four) hours as needed for Wheezing or Shortness of Breath. [facility] benzonatate 100 mg capsule 07-09 00:00: 00 09-28 00:00 :00 No [id number] 100mg Take 1 capsule by mouth 3 (three) times daily as needed for Cough. [facility] predniSONE 20 mg tablet 07-09 00:00: 00 07-15 04:59 :00 No [id number] 60mg Take 3 tablets by mouth every morning for 5 days. [facility] predniSONE 20 mg tablet 07-09 00:00: 00 07-15 04:59 :00 No [id number] 60mg Take 3 tablets by mouth every morning for 5 days. [facility] omeprazole 20 mg capsule 07-08 20:59: 40 Yes 20mg Take 20 mg by mouth daily. [facility] zolpidem (AMBIEN) 10 mg tablet 07-08 20:59: 40 Yes 10mg Take 10 mg by mouth at bedtime as needed for Insomnia. [facility] HYDROcodone -acetaminop hen (NORCO) 10-325 mg tablet 07-08 20:59: 40 Yes 1{tbl} Take 1 tablet by mouth every 6 (six) hours as needed for Pain (scale 7-10). [facility] omeprazole 20 mg capsule 07-08 20:59: 40 Yes 20mg Take 20 mg by mouth daily. [facility] zolpidem (AMBIEN) 10 mg tablet 07-08 20:59: 40 Yes 10mg Take 10 mg by mouth at bedtime as needed for Insomnia. [facility] HYDROcodone -acetaminop hen (NORCO) 10-325 mg tablet 07-08 20:59: 40 Yes 1{tbl} Take 1 tablet by mouth every 6 (six) hours as needed for Pain (scale 7-10). [facility] azithromyci n (ZITHROMAX) tablet 500 mg 11-01 21:00: 00 11-01 20:28 :00 No 500mg 500 mg, Oral, ONCE, 1 dose, 11/01/20 at 1500, [place]
Re ason for Anti-Infec tive: Documented Infection< br>Documen david Infection Site: Respirator y
Durat ion of Therapy: 7 days
Re ason for Anti-Infec tive: Documented Infection< br>Documen david Infection Site: Respirator y [facility] methylpredn isolone sod succ (SOLU-MEDRO L) injection 125 mg 11-01 19:00: 00 11-01 18:20 :00 No 125mg 125 mg, Intravenou s, ONCE, 1 dose, Fri11/01/20 at 1300, STAT [facility] ondansetron (ZOFRAN ODT) 4 mg disintegrat ing tablet 11-01 00:00: 00 Yes [id number] 4mg Take 1 tablet by mouth every 8 (eight) hours as needed for Nausea and Vomiting (N/V). [facility] benzonatate 200 mg capsule 11-01 00:00: 00 Yes [id number] 200mg Take 1 capsule by mouth 3 (three) times daily as needed for Cough for up to 20 doses. [facility] albuterol 90 mcg/actuati on inhaler 11-01 00:00: 00 Yes [id number] 2{puff} Inhale 2 Puffs every 4 (four) hours as needed for Wheezing or Shortness of Breath. [facility] azithromyci n (ZITHROMAX Z-LATONYA) 250 mg tablet 11-01 00:00: 00 Yes [id number] 250mg Take 1 tablet by mouth SEE-INSTRU CTIONS. Take 500 mg day 1, then 250 mg days 2 to 5. [facility] predniSONE 20 mg tablet 11-01 00:00: 00 Yes [id number] 1 PO BID x 4 days [facility] albuterol 90 mcg/actuati on inhaler 11-01 00:00: 00 Yes [id number] 2{puff} Inhale 2 Puffs every 4 (four) hours as needed for Wheezing or Shortness of Breath. [facility] albuterol 90 mcg/actuati on inhaler 11-01 00:00: 00 Yes [id number] 2{puff} Inhale 2 Puffs every 4 (four) hours as needed for Wheezing or Shortness of Breath. [facility] albuterol 90 mcg/actuati on inhaler - 00:00: 00 Yes [id number] 2{puff} Inhale 2 Puffs every 4 (four) hours as needed for Wheezing or Shortness of Breath. [facility] albuterol 90 mcg/actuati on inhaler 11-01 00:00: 00 Yes [id number] 2{puff} Inhale 2 Puffs every 4 (four) hours as needed for Wheezing or Shortness of Breath. [facility] albuterol 90 mcg/actuati on inhaler 11-01 00:00: 00 Yes [id number] 2{puff} Inhale 2 Puffs every 4 (four) hours as needed for Wheezing or Shortness of Breath. [facility] albuterol 90 mcg/actuati on inhaler 11-01 00:00: 00 Yes [id number] 2{puff} Inhale 2 Puffs every 4 (four) hours as needed for Wheezing or Shortness of Breath. [facility] albuterol 90 mcg/actuati on inhaler 11-01 00:00: 00 Yes [id number] 2{puff} Inhale 2 Puffs every 4 (four) hours as needed for Wheezing or Shortness of Breath. [facility] albuterol 90 mcg/actuati on inhaler 11-01 00:00: 00 Yes [id number] 2{puff} Inhale 2 Puffs every 4 (four) hours as needed for Wheezing or Shortness of Breath. [facility] albuterol 90 mcg/actuati on inhaler - 00:00: 00 Yes [id number] 2{puff} Inhale 2 Puffs every 4 (four) hours as needed for Wheezing or Shortness of Breath. [facility] albuterol 90 mcg/actuati on inhaler - 00:00: 00 02-19 00:00 :00 No [id number] 2{puff} Inhale 2 Puffs every 4 (four) hours as needed for Wheezing or Shortness of Breath. [facility] ondansetron (ZOFRAN ODT) 4 mg disintegrat ing tablet 11-01 00:00: 00 07-08 00:00 :00 No [id number] 4mg Take 1 tablet by mouth every 8 (eight) hours as needed for Nausea and Vomiting (N/V). [facility] ondansetron (ZOFRAN ODT) 4 mg disintegrat ing tablet 11-01 00:00: 00 07-08 00:00 :00 No [id number] 4mg Take 1 tablet by mouth every 8 (eight) hours as needed for Nausea and Vomiting (N/V). [facility] benzonatate 200 mg capsule 11-01 00:00: 00 07-08 00:00 :00 No [id number] 200mg Take 1 capsule by mouth 3 (three) times daily as needed for Cough for up to 20 doses. [facility] azithromyci n (ZITHROMAX Z-LATONYA) 250 mg tablet 11-01 00:00: 00 07-08 00:00 :00 No [id number] 250mg Take 1 tablet by mouth SEE-INSTRU CTIONS. Take 500 mg day 1, then 250 mg days 2 to 5. [facility] predniSONE 20 mg tablet 11-01 00:00: 00 07-08 00:00 :00 No [id number] 1 PO BID x 4 days [facility] benzonatate 200 mg capsule 11-01 00:00: 00 07-08 00:00 :00 No [id number] 200mg Take 1 capsule by mouth 3 (three) times daily as needed for Cough for up to 20 doses. [facility] azithromyci n (ZITHROMAX Z-LATONYA) 250 mg tablet 11-01 00:00: 00 07-08 00:00 :00 No [id number] 250mg Take 1 tablet by mouth SEE-INSTRU CTIONS. Take 500 mg day 1, then 250 mg days 2 to 5. [facility] predniSONE 20 mg tablet - 00:00: 00 07-08 00:00 :00 No [id number] 1 PO BID x 4 days [facility] omeprazole 20 mg capsule 2019-10 21:18: 08 Yes 20mg Take 20 mg by mouth daily. [facility] zolpidem (AMBIEN) 10 mg tablet 2019-10 21:18: 08 Yes 10mg Take 10 mg by mouth at bedtime as needed for Insomnia. [facility] HYDROcodone -acetaminop hen (NORCO) 10-325 mg tablet 2019-10 21:18: 08 Yes 1{tbl} Take 1 tablet by mouth every 6 (six) hours as needed for Pain (scale 7-10). [facility] omeprazole 20 mg capsule 2019-10 21:18: 08 Yes 20mg Take 20 mg by mouth daily. [facility] zolpidem (AMBIEN) 10 mg tablet 2019-10 21:18: 08 Yes 10mg Take 10 mg by mouth at bedtime as needed for Insomnia. [facility] HYDROcodone -acetaminop hen (NORCO) 10-325 mg tablet 2019-10 21:18: 08 Yes 1{tbl} Take 1 tablet by mouth every 6 (six) hours as needed for Pain (scale 7-10). [facility] omeprazole 20 mg capsule 2019-10 21:18: 08 Yes 20mg Take 20 mg by mouth daily. [facility] zolpidem (AMBIEN) 10 mg tablet 2019-10 21:18: 08 Yes 10mg Take 10 mg by mouth at bedtime as needed for Insomnia. [facility] HYDROcodone -acetaminop hen (NORCO) 10-325 mg tablet 2019-10 21:18: 08 Yes 1{tbl} Take 1 tablet by mouth every 6 (six) hours as needed for Pain (scale 7-10). [facility] omeprazole (PRILOSEC) capsule 20 mg 2019-10 14:00: 00 Yes 20mg 20 mg, Oral, DAILY, First dose on Fri08/21/20 at 0900, Until Discontinu ed, Routine [facility] HYDROmorpho ne (DILAUDID) tablet 2 mg 2019-10 02:16: 28 Yes 2mg 2 mg, Oral, Q4HPRN, Starting 08/20/20 at 211, Until Discontinu ed, Routine, Pain (scale 4-6) [facility] HYDROmorpho ne (DILAUDID) tablet 4 mg 2019-10 02:16: 09 Yes 4mg 4 mg, Oral, Q4HPRN, Starting 08/20/20 at 2115, Until Discontinu ed, Routine, Pain (scale 7-10) [facility] diphenhydrA MINE (BENADRYL) tablet 25 mg 2019-10 01:36: 00 08-21 01:42 :00 No 25mg 25 mg, Oral, ONCE, 1 dose, [place] 08/20/20 at 2044, Routine [facility] amoxicillin -clavulanat e (AUGMENTIN) 875-125 mg per tablet 2019-10 00:00: 00 09-01 05:59 :00 No [id number] 1{tbl} Take 1 tablet by mouth 2 (two) times daily for 10 days. [facility] nicotine (NICODERM) 14 mg/24 hr patch 1 Patch 2019-10 22:45: 00 Yes 1{patch } 1 Patch, Topical, Administer over 24 Hours, Q24H, First dose on 08/20/20 at 1745, Until Discontinu ed, Routine [facility] Sliding Scale Insulin - Aspart (NOVOLOG) + Fsbg Testing 2019-10 21:30: 00 Yes Subcutaneo us, AC, First dose on 08/20/20 at 1630, Until Discontinu ed, Routine [facility] diphenhydrA MINE (BENADRYL) injection 25 mg 2019-10 21:18: 56 Yes 25mg 25 mg, Slow IV Push, Q6HPRN, Starting 08/20/20 at 1618, Until Discontinu ed, Routine, Itching [facility] morpHINE injection 2 mg 2019-10 21:18: 17 08-21 02:19 :52 No 2mg 2 mg, Slow IV Push, Q4HPRN, Starting 08/20/20 at 1618, Until 08/20/20 at 2119, Routine, Pain (scale 7-10) [facility] zolpidem (AMBIEN) tablet 10 mg 2019-10 21:00: 25 Yes 10mg 10 mg, Oral, QHSPRN, Starting 08/20/20 at 1600, Until Discontinu ed, Routine, Insomnia [facility] HYDROcodone -acetaminop hen (NORCO) 10-325 mg tablet 1 tablet 2019-10 19:58: 11 08-20 21:20 :48 No 1{tbl} 1 tablet, Oral, Q6HPRN, Starting 08/20/20 at 1458, Until 08/20/20 at 1620, Routine, Pain (scale 7-10) [facility] acetaminoph en (TYLENOL) tablet 650 mg 2019-10 19:58: 02 Yes 650mg 650 mg, Oral, Q6HPRN, Starting 08/20/20 at 1458, Until Discontinu ed, Routine, Pain (scale 1-3) [facility] diphenhydrA MINE (BENADRYL) injection 25 mg 2019-10 19:45: 00 08-20 18:40 :00 No 25mg 25 mg, Slow IV Push, ONCE, 1 dose, 08/20/20 at 1445, STAT [facility] morpHINE injection 4 mg 2019-10 18:30: 00 08-20 17:29 :00 No 4mg 4 mg, Slow IV Push, ONCE, 1 dose, 08/20/20 at 1330, STAT [facility] ondansetron (ZOFRAN (PF)) injection 4 mg 2019-10 17:30: 00 08-20 16:34 :00 No 4mg 4 mg, Slow IV Push, ONCE, 1 dose, 08/20/20 at 1230, [place] [facility] morpHINE injection 4 mg 2019-10 17:30: 00 08-20 16:34 :00 No 4mg 4 mg, Slow IV Push, ONCE, 1 dose, 08/20/20 at 1230, STAT [facility] piperacilli n-tazobacta m (ZOSYN) 3.375 g in NaCl 0.9% (NS) 100 mL MINI-BAG 2019-10 17:30: 00 08-20 17:03 :00 No 3.375g 3.375 g, IV Piggyback, ONCE, 1 dose, 08/20/20 at 1230, 100 mL
Reas on for Anti-Infec tive: Documented Infection< br>Documen david Infection Site: Skin / Soft Tissue
Duration of Therapy: Other (see Comments) [facility] vancomycin (VANCOCIN) 1,000 mg in NaCl 0.9% (NS) 250 mL VIAL-MATE IV piggyback 2019-10 17:30: 08-20 18:18 :00 No 1000mg 1,000 mg, IV Piggyback, ONCE, 1 dose, 08/20/20 at 1230, 250 mL
Reas on for Anti-Infec tive: Documented Infection< br>Documen david Infection Site: Skin / Soft Tissue
Duration of Therapy: Other (see Comments) [facility] contrast previously administere d 0 mL 03-08 20:45: 00 03-08 20:30 :00 No Intravenou s, ONCE, 1 dose, 03/08/20 at 1545, Routine [facility] NaCl 0.9% (NS) bolus infusion 1,000 mL 03-08 20:45: 00 03-08 21:52 :00 No 1000mL at 999 mL/hr, 1,000 mL, IV Infusion, ONCE, 1 dose, 03/08/20 at 1545, STAT [facility] ondansetron (ZOFRAN (PF)) injection 4 mg 03-08 20:45: 00 03-08 20:23 :00 No 4mg 4 mg, Slow IV Push, ONCE, 1 dose, 03/08/20 at 1545, MALLORIE [facility] morpHINE injection 4 mg 03-08 20:45: 00 03-08 20:23 :00 No 4mg 4 mg, Slow IV Push, ONCE, 1 dose, Fri03/08/20 at 1545, STAT [facility] iohexol (OMNIPAQUE 350 BULK-150 mL) injection 120 mL 03-08 20:30: 00 03-08 20:15 :00 No 120mL 120 mL, Intravenou s, ONCE, 1 dose, Fri03/08/20 at 1530, Routine [facility] ondansetron 4 mg disintegrat ing tablet 03-08 00:00: 00 Yes [id number] 4mg Take 1 tablet by mouth every 4 (four) hours as needed for Nausea and Vomiting (N/V). [facility] traMADol 50 mg tablet 03-08 00:00: 00 Yes [id number] 50mg Take 1 tablet by mouth every 6 (six) hours as needed for Pain (scale 4-6). [facility] traMADol 50 mg tablet 03-08 00:00: 00 08-20 00:00 :00 No [id number] 50mg Take 1 tablet by mouth every 6 (six) hours as needed for Pain (scale 4-6). [facility] ondansetron 4 mg disintegrat ing tablet 03-08 00:00: 00 08-20 00:00 :00 No [id number] 4mg Take 1 tablet by mouth every 4 (four) hours as needed for Nausea and Vomiting (N/V). [facility] hydrocodone 10 mg-acetamin ophen 325 mg/15 mL (15 mL) oral solution Take by oral route. hydrocodone 10 mg-acetamin ophen 325 mg/15 mL (15 mL) oral solution Take by oral route. No hydrocodon e 10 mg-acetami nophen 325 mg/15 mL (15 mL) oral solution Take by oral route. [facility] Nexium 20 mg capsule,del ayed release Take 1 capsule every day by oral route. Nexium 20 mg capsule,del ayed release Take 1 capsule every day by oral route. No 1capsul e(s) Q1D Nexium 20 mg capsule,de layed release Take 1 capsule every day by oral route. Balaji dash [facility] Immunizations Ordered Immunization Name Filled Immunization Name Date Status Comments Source PPD (TB) 2023-02-17 00:00:00 Completed [facility] PPD (TB) 2023-02-17 00:00:00 Completed [facility] PPD (TB) 2023-02-14 00:00:00 Completed [facility] PPD (TB) 2023-02-14 00:00:00 Completed [facility] Influenza Virus Vaccine Quad IM 3+ YRS 2019-07-19 00:00:00 Completed [facility] Influenza Virus Vaccine Quad IM + 2019-07-19 00:00:00 Completed [facility] Influenza Virus Vaccine Quad IM 2019-07-19 00:00:00 Completed [facility] Influenza Virus Vaccine Quad IM 3+ 2019-07-19 00:00:00 Completed [facility] Influenza Virus Vaccine Quad IM 3+ 2019-07-19 00:00:00 Completed [facility] Influenza Virus Vaccine Quad IM 3+ 2019-07-19 00:00:00 Completed [facility] Influenza Virus Vaccine Quad IM 3+ 2019-07-19 00:00:00 Completed [facility] Influenza Virus Vaccine Quad IM 32019-07-19 00:00:00 Completed [facility] Influenza Virus Vaccine Quad IM 3+ 2019-07-19 00:00:00 Completed [facility] Influenza Virus Vaccine Quad IM 3+ 2019-07-19 00:00:00 Completed [facility] Influenza Virus Vaccine Quad IM 3+ YRS 2019-07-19 00:00:00 Completed [facility] Influenza Virus Vaccine Quad IM 3+ YRS 2019-07-19 00:00:00 Completed [facility] Influenza Virus Vaccine Quad IM 3+ YRS 2019-07-19 00:00:00 Completed [facility] Influenza Virus Vaccine Quad IM 3+ YRS 2019-07-19 00:00:00 Completed [facility] Influenza Virus Vaccine 2017-11-24 00:00:00 Completed [facility] Influenza Virus Vaccine 2017-11-24 00:00:00 Completed [facility] Influenza Virus Vaccine 2017-11-24 00:00:00 Completed [facility] Influenza Virus Vaccine 2017-11-24 00:00:00 Completed [facility] Influenza Virus Vaccine 2017-11-24 00:00:00 Completed [facility] Influenza Virus Vaccine 2017-11-24 00:00:00 Completed [facility] Influenza Virus Vaccine 2017-11-24 00:00:00 Completed [facility] Influenza Virus Vaccine 2017-11-24 00:00:00 Completed [facility] Influenza Virus Vaccine 2017-11-24 00:00:00 Completed [facility] Influenza Virus Vaccine 2017-11-24 00:00:00 Completed [facility] Influenza Virus Vaccine 2017-11-24 00:00:00 Completed [facility] Influenza Virus Vaccine 2017-11-24 00:00:00 Completed [facility] Influenza Virus Vaccine 2017-11-24 00:00:00 Completed [facility] Influenza Virus Vaccine 2017-11-24 00:00:00 Completed [facility] Influenza Virus Vaccine Unknown Completed [facility] Influenza Virus Vaccine Quad IM 3+ YRS Unknown Completed [facility] Vital Signs Vital Name Observation Time Observation Value Comments S ource Respiratory rate 2023-02-19 20:00:00 16 /min [facility] Oxygen saturation in Arterial blood by Pulse oximetry 2023-02-19 20:00:00 96 /min [facility] Systolic blood pressure 2023-02-19 17:25:00 128 mm[Hg] [facility] Diastolic blood pressure 2023-02-19 17:25:00 67 mm[Hg] [facility] Heart rate 2023-02-19 17:25:00 60 /min [facility] Body temperature 2023-02-19 17:25:00 36.67 Gillian [facility] Body weight 2023-02-19 09:18:00 64.411 kg [facility] BMI 2023-02-19 09:18:00 20.97 kg/m2 [facility] Body height 2023-02-14 00:30:00 175.3 cm [facility] Heart rate 2022-09-28 07:02:00 90 /min [facility] Respiratory rate 2022-09-28 07:02:00 18 /min [facility] Oxygen saturation in Arterial blood by Pulse oximetry 2022-09-28 07:02:00 96 /min [facility] Systolic blood pressure 2022-09-28 04:12:00 143 mm[Hg] [facility] Diastolic blood pressure 2022-09-28 04:12:00 83 mm[Hg] [facility] Body temperature 2022-09-28 04:12:00 37.5 Gillian [facility] Body height 2022-09-28 04:12:00 175.3 cm [facility] Body weight 2022-09-28 04:12:00 71.668 kg [facility] BMI 2022-09-28 04:12:00 23.33 kg/m2 [facility] Systolic blood pressure 2022-07-02 23:00:00 124 mm[Hg] [facility] Diastolic blood pressure 2022-07-02 23:00:00 71 mm[Hg] [facility] Heart rate 2022-07-02 23:00:00 69 /min [facility] Respiratory rate 2022-07-02 23:00:00 17 /min [facility] Oxygen saturation in Arterial blood by Pulse oximetry 2022-07-02 23:00:00 94 /min [facility] Body temperature 2022-07-02 21:05:00 36.11 Gillian [facility] Body height 2022-07-02 21:05:00 172.7 cm [facility] Body weight 2022-07-02 21:05:00 73.483 kg [facility] BMI 2022-07-02 21:05:00 24.63 kg/m2 [facility] Systolic blood pressure 2022-06-09 09:09:00 118 mm[Hg] [facility] Diastolic blood pressure 2022-06-09 09:09:00 71 mm[Hg] [facility] Heart rate 2022-06-09 09:09:00 76 /min [facility] Respiratory rate 2022-06-09 09:09:00 8 /min [facility] Oxygen saturation in Arterial blood by Pulse oximetry 2022-06-09 09:09:00 91 /min [facility] Body temperature 2022-06-09 07:44:00 35.94 Gillian [facility] Body height 2022-06-09 07:44:00 172.7 cm [facility] Body weight 2022-06-09 07:44:00 70.761 kg [facility] BMI 2022-06-09 07:44:00 23.72 kg/m2 [facility] Systolic blood pressure 2022-05-02 02:01:48 112 mm[Hg] [facility] Diastolic blood pressure 2022-05-02 02:01:48 61 mm[Hg] [facility] Heart rate 2022-05-02 02:01:48 72 /min [facility] Respiratory rate 2022-05-02 02:01:48 18 /min [facility] Oxygen saturation in Arterial blood by Pulse oximetry 2022-05-02 02:01:48 95 /min [facility] Body temperature 2022-05-01 23:17:00 36.56 Gillian [facility] Body weight 2022-05-01 23:17:00 73.483 kg [facility] BMI 2022-05-01 23:17:00 28.70 kg/m2 [facility] Heart rate 2021-07-18 20:26:00 68 /min [facility] Respiratory rate 2021-07-18 20:26:00 20 /min [facility] Oxygen saturation in Arterial blood by Pulse oximetry 2021-07-18 20:26:00 96 /min [facility] Systolic blood pressure 2021-07-18 20:00:00 131 mm[Hg] [facility] Diastolic blood pressure 2021-07-18 20:00:00 78 mm[Hg] [facility] Body temperature 2021-07-18 20:00:00 36.61 Gillian [facility] Body height 2021-07-16 01:29:00 160 cm [facility] Body weight 2021-07-16 01:29:00 76.204 kg [facility] BMI 2021-07-16 01:29:00 29.76 kg/m2 [facility] Systolic blood pressure 2021-07-09 07:41:00 112 mm[Hg] [facility] Diastolic blood pressure 2021-07-09 07:41:00 63 mm[Hg] [facility] Heart rate 2021-07-09 07:41:00 81 /min [facility] Respiratory rate 2021-07-09 07:41:00 17 /min [facility] Oxygen saturation in Arterial blood by Pulse oximetry 2021-07-09 07:41:00 91 /min [facility] Body temperature 2021-07-09 04:16:00 36.94 Gillian [facility] Body height 2021-07-09 02:04:00 160 cm [facility] Body weight 2021-07-09 02:04:00 76.204 kg [facility] BMI 2021-07-09 02:04:00 29.76 kg/m2 [facility] Systolic blood pressure 2020-11-01 20:30:00 126 mm[Hg] [facility] Diastolic blood pressure 2020-11-01 20:30:00 73 mm[Hg] [facility] Heart rate 2020-11-01 20:30:00 67 /min [facility] Respiratory rate 2020-11-01 20:30:00 20 /min [facility] Oxygen saturation in Arterial blood by Pulse oximetry 2020-11-01 20:30:00 95 /min [facility] Body temperature 2020-11-01 17:15:00 36.56 Gillian [facility] Body weight 2020-11-01 17:12:00 76.204 kg [facility] BMI 2020-11-01 17:12:00 24.81 kg/m2 [facility] Systolic blood pressure 2020-08-21 20:41:00 116 mm[Hg] [facility] Diastolic blood pressure 2020-08-21 20:41:00 67 mm[Hg] [facility] Heart rate 2020-08-21 20:41:00 77 /min [facility] Body temperature 2020-08-21 20:41:00 36.72 Gillian [facility] Respiratory rate 2020-08-21 20:41:00 20 /min [facility] Oxygen saturation in Arterial blood by Pulse oximetry 2020-08-21 20:41:00 94 /min [facility] Body weight 2020-08-20 21:18:00 76.204 kg [facility] BMI 2020-08-20 21:18:00 24.81 kg/m2 [facility] Body height 2020-08-20 15:59:00 175.3 cm [facility] BP Diastolic 2020-03-30 00:00:00 67 mm[Hg] [facility] Height 2020-03-30 00:00:00 64 [in_i] [facility] BMI (Body Mass Index) 2020-03-30 00:00:00 29 kg/m2 [facility] BP Systolic 2020-03-30 00:00:00 135 mm[Hg] [facility] Body Weight 2020-03-30 00:00:00 169.2 [lb_av] [facility] Systolic blood pressure 2020-03-08 21:30:00 131 mm[Hg] [facility] Diastolic blood pressure 2020-03-08 21:30:00 65 mm[Hg] [facility] Heart rate 2020-03-08 21:30:00 69 /min [facility] Respiratory rate 2020-03-08 21:30:00 14 /min [facility] Oxygen saturation in Arterial blood by Pulse oximetry 2020-03-08 21:30:00 96 /min [facility] Body temperature 2020-03-08 18:51:00 37.17 Gillian [facility] Body height 2020-03-08 18:51:00 165.1 cm [facility] Body weight 2020-03-08 18:51:00 76.204 kg [facility] BMI 2020-03-08 18:51:00 27.96 kg/m2 [facility] Systolic blood pressure 2020-03-08 21:30:00 131 mm[Hg] [facility] Diastolic blood pressure 2020-03-08 21:30:00 65 mm[Hg] [facility] Heart rate 2020-03-08 21:30:00 69 /min [facility] Respiratory rate 2020-03-08 21:30:00 14 /min [facility] Oxygen saturation in Arterial blood by Pulse oximetry 2020-03-08 21:30:00 96 /min [facility] Body temperature 2020-03-08 18:51:00 37.17 Gillian [facility] Body height 2020-03-08 18:51:00 165.1 cm [facility] Body weight 2020-03-08 18:51:00 76.204 kg [facility] BMI 2020-03-08 18:51:00 27.96 kg/m2 [facility] Procedures Procedure Date / Time Performed Performing Clinician Source BASIC METABOLIC PANEL (NA, K, CL, CO2, GLUCOSE, BUN, CREATININE, CA) 2023-02-19 09:17:00 Rey Lianne [facility] CBC WITH DIFF 2023-02-19 09:17:00 Rey [facility] CBC WITH DIFF 2023-02-18 10:09:00 Rey [facility] BASIC METABOLIC PANEL (NA, K, CL, CO2, GLUCOSE, BUN, CREATININE, CA) 2023-02-17 12:52:00 Graeme Boyer [facility] CBC WITH DIFF 2023-02-17 12:52:00 Graeme Boyer [facility] QUANTIFERON-TB ASSAY 2023-02-17 12:52:00 Jesse Montemayor [facility] QFT TB2 MINUS NIL 2023-02-17 12:52:00 Dilan Montemayor [facility] TROPONIN I 2023-02-14 08:42:00 Peg Reddy [facility] BASIC METABOLIC PANEL (NA, K, CL, CO2, GLUCOSE, BUN, CREATININE, CA) 2023-02-14 08:42:00 Cecilio Lange [facility] CBC WITH DIFF 2023-02-14 08:42:00 [facility]ilio [facility] URINALYSIS 2023-02-14 01:34:00 Dilan [facility]ayor [facility] URINE CULTURE 2023-02-14 01:34:[address] [facility] RESPIRATORY PANEL BY PCR 2023-02-14 01:09:00 Avinash Lange [facility] MAGNESIUM 2023-02-13 22:24:00 Singer [facility] TROPONIN I 2023-02-13 22:24:00 Singer [facility] COMP. METABOLIC PANEL ([id number]) 2023-02-13 22:24:00 [facility] N-TERMINAL PRO-BNP 2023-02-13 22:24:00 [facility] BLOOD CULTURE SCREEN 2023-02-13 22:16:00 Jesse Montemayor [facility] LACTIC ACID WHOLE BLOOD 2023-02-13 22:15:00 [facility] 2023-02-13 22:00:00 Jesse Montemayor [facility] CT CHEST PULMONARY ANGIOGRAM 2023-02-13 21:48:00 [facility] RAPID INFLUENZA A/B 2023-02-13 21:31:00 Carmella Montemayor [facility] COVID-19 (ID NOW RAPID TESTING) 2023-02-13 21:31:00 [facility] LAB ONLY COVID INTERPRETATION 2023-02-13 21:31:00 [facility] CBC WITH DIFF 2023-02-13 21:27:[address] [facility] HB ECG ROUTINE & RHYTHM STRIP 2023-02-13 21:26:40 [facility] XR CHEST 1 VW 2022-09-28 06:15:08 Adilia Gonzalez [facility] URINALYSIS 2022-09-28 05:45:00 Adilia Gonzalez [facility] RAPID INFLUENZA A/B 2022-09-28 04:52:00 Adilia Gonzalez [facility] COVID-19 (ID NOW RAPID TESTING) 2022-09-28 04:52:00 Adilia Gonzalez [facility] CONSENT/REFUSAL FOR DIAGNOSIS AND TREATMENT 2022-09-28 04:00:05 Doctor Unassigned, [place] CONSENT/REFUSAL FOR DIAGNOSIS AND TREATMENT 2022-07-02 21:01:43 Doctor Unassigned, [place] [employer] CT ABDOMEN PELVIS W CONTRAST 2022-06-09 08:19:26 [facility] URINALYSIS 2022-06-09 07:55:00 Dilan Montemayor [facility] LIPASE 2022-06-09 07:54:00 [facility] COMP. METABOLIC PANEL ([id number]) 2022-06-09 07:54:00 [facility] CBC WITH DIFF 2022-06-09 07:54:[address] [facility] CONSENT/REFUSAL FOR DIAGNOSIS AND TREATMENT 2022-06-09 07:31:39 Doctor Unassigned, [place] [employer] CT SOFT TISSUE NECK W CONTRAST 2022-05-02 00:34:00 Mikey Cortez [facility] COMP. METABOLIC PANEL ([id number]) 2022-05-01 23:57:00 Mikey Cortez [facility] CBC WITH DIFF 2022-05-01 23:57:00 Mikey Cortez [facility] NOTICE OF PRIVACY PRACTICES 2022-05-01 23:17:26 Doctor Unassigned, [place] [employer] [facility] CONSENT/REFUSAL FOR DIAGNOSIS AND TREATMENT 2022-05-01 23:16:57 Doctor Unassigned, [place] [employer] BASIC METABOLIC PANEL (NA, K, CL, CO2, GLUCOSE, BUN, CREATININE, CA) 2021-07-18 09:37:00 Mindi Haynes [facility] CBC WITH DIFF 2021-07-18 09:37:00 Mindi Haynes [facility] CT ABDOMEN PELVIS W CONTRAST 2021-07-17 23:15:00 Elise Padron [facility] TROPONIN I 2021-07-17 10:08:00 Amanda Prater [facility] BASIC METABOLIC PANEL (NA, K, CL, CO2, GLUCOSE, BUN, CREATININE, CA) 2021-07-17 10:08:00 Mindi Haynes [facility] LIPID PANEL ([id number])(TOTAL CHOLESTEROL, TRIGLYCERIDES, HDL) 2021-07-17 10:08:00 Amanda Prater [facility] CBC WITH DIFF 2021-07-17 10:08:00 Mindi Haynes [facility] TRANSTHORACIC ECHO (TTE) COMPLETE W/ CONTRAST 2021-07-16 15:51:41 Amanda Prater [facility] XR CHEST 1 VW 2021-07-16 11:35:45 Sravani Atkinson [facility] COVID-19 (MOLECULAR TESTING NUCLEIC ACID AMPLIFICATION) 2021-07-16 08:28:00 Sravani Atkinson [facility] LAB ONLY COVID INTERPRETATION 2021-07-16 08:28:00 Sravani Atkinson [facility] LACTIC ACID WHOLE BLOOD 2021-07-16 08:25:00 Tomas Atkinson [facility] PHOSPHORUS 2021-07-16 08:22:00 Sravani Atkinson [facility] MAGNESIUM 2021-07-16 08:22:00 Sravani Atkinson [facility] TROPONIN I 2021-07-16 08:22:00 Sravani Atkinson [facility] COMP. METABOLIC PANEL ([id number]) 2021-07-16 08:22:00 Sravani Atkinson [facility] CBC WITH DIFF 2021-07-16 08:22:00 Sravani Atkinson [facility] GLYCOSYLATED HEMOGLOBIN (A1C) 2021-07-16 08:22:00 Sravani Atkinson [facility] D-DIMER 2021-07-16 08:22:00 Namita Esposito [facility] TROPONIN I 2021-07-16 04:28:00 Mirta Ojeda [facility] URINALYSIS 2021-07-16 03:53:00 [facility] CT CHEST PULMONARY ANGIOGRAM 2021-07-16 02:23:25 Mirta Ojeda Bush[facility] AC PANEL 21 + LACTIC ACID 2021-07-16 02:09:00 Mirta Ojeda [facility] MAGNESIUM 2021-07-16 01:44:00 Mirta Ojeda [facility] N-TERMINAL PRO-BNP 2021-07-16 01:44:00 Mirta Ojeda [facility] LIPASE 2021-07-16 01:43:00 Dilan [facility]emayor [facility] TROPONIN I 2021-07-16 01:43:00 Dilan [facility]emayor [facility] COMP. METABOLIC PANEL ([id number]) 2021-07-16 01:43:00 [facility] CBC WITH DIFF 2021-07-16 01:43:[address] [facility] PROTHROMBIN TIME / INR 2021-07-16 01:43:00 Brock Montemayor [facility] ACTIVATED PARTIAL THRMPLAS PAVAN 2021-07-16 01:43:00 [facility] COVID-19 (ID NOW RAPID TESTING) 2021-07-16 01:43:00 Mirta Ojeda Bush[facility] HB ECG ROUTINE & RHYTHM STRIP 2021-07-16 01:32:43 [facility] TROPONIN I 2021-07-09 06:11:00 Kady [facility]endariz [facility] ADC, CLC OR LCC ONLY - RSV 2021-07-09 03:46:00 Kady Armendariz [facility] XR CHEST 1 VW 2021-07-09 02:26:10 Kady Armendariz [facility] LIPASE 2021-07-09 02:07:00 Kady Armendariz [facility] TROPONIN I 2021-07-09 02:07:00 Kady [facility]endariz [facility] COMP. METABOLIC PANEL ([id number]) 2021-07-09 02:07:00 Kady Armendariz [facility] CBC WITH DIFF 2021-07-09 02:07:00 Kady Armendariz [facility] PROTHROMBIN TIME / INR 2021-07-09 02:07:00 Joey Armendariz [facility] ACTIVATED PARTIAL THRMPLAS PAVAN 2021-07-09 02:07:00 Kady Armendariz [facility] N-TERMINAL PRO-BNP 2021-07-09 02:07:00 Kady Armendariz [facility] COVID-19 (ID NOW RAPID TESTING) 2021-07-09 02:07:00 Kady Armendariz [facility] URINALYSIS 2020-11-01 20:29:00 Mirta Ojeda [facility] COVID-19 (ID NOW RAPID TESTING) 2020-11-01 18:23:00 Mirta Ojeda [facility] MAGNESIUM 2020-11-01 18:15:00 Mir[facility]jeda [facility] TROPONIN I 2020-11-01 18:15:00 Mirta [facility]jeda [facility] COMP. METABOLIC PANEL ([id number]) 2020-11-01 18:15:00 Mirta Ojeda [facility] CBC WITH DIFF 2020-11-01 18:15:00 Mirta Ojeda [facility] D-DIMER 2020-11-01 18:15:00 Mirta [facility]jeda [facility] N-TERMINAL PRO-BNP 2020-11-01 18:15:00 Mirta Ojeda [facility] XR CHEST 1 VW 2020-11-01 18:03:13 Mirta Ojeda Bushra [facility] CONSENT/REFUSAL FOR DIAGNOSIS AND TREATMENT 2020-11-01 16:54:16 Doctor Unassigned, [place] [employer] [place] POCT GLUCOSE (AUTOMATED) 2020-08-21 16:36:00 Helena Maguire [facility] POCT GLUCOSE (AUTOMATED) 2020-08-21 12:43:00 Helena Maguire [facility] BASIC METABOLIC PANEL (NA, K, CL, CO2, GLUCOSE, BUN, CREATININE, CA) 2020-08-21 09:13:00 Lianne Le [facility] CBC WITH DIFF 2020-08-21 09:13:00 Lianne Le [facility] POCT GLUCOSE (AUTOMATED) 2020-08-20 21:54:00 Helena Maguire [facility] COVID-19 (ID NOW RAPID TESTING) 2020-08-20 18:11:00 Rylan Garcia [facility] XR FINGERS 2 VW RIGHT 2020-08-20 16:47:24 Fuentes Garcia [facility] BASIC METABOLIC PANEL (NA, K, CL, CO2, GLUCOSE, BUN, CREATININE, CA) 2020-08-20 16:32:00 Rylan Garcia [facility] CBC WITH DIFF 2020-08-20 16:32:00 [facility] (A1C) 2020-08-20 16:32:00 Lianne Le [facility] BLOOD CULTURE SCREEN 2020-08-20 16:00:00 Candido Garcia i [facility] NOTICE OF PRIVACY PRACTICES 2020-08-20 15:53:18 Doctor Unassigned, [place] [employer] [facility] CT ABDOMEN PELVIS W CONTRAST 2020-03-08 20:31:40 Kady Armendariz [facility] CT THORAX W CONTRAST 2020-03-08 20:28:43 Damian [facility]iz [facility] LIPASE 2020-03-08 19:26:00 Kady [facility]endariz [facility] TROPONIN I 2020-03-08 19:26:00 Kady [facility]endariz [facility] HEPATIC FUNCTION PANEL ([id number]) (ALB,T.PRO,BILI T,BU/BC,ALT,AST,ALK PHOS) 2020-03-08 19:26:00 Kady Armendariz [facility] BASIC METABOLIC PANEL (NA, K, CL, CO2, GLUCOSE, BUN, CREATININE, CA) 2020-03-08 19:26:00 Kady Armendariz [facility] CBC WITH DIFFERENTIAL 2020-03-08 19:26:00 Caleb [facility] [facility] PROTHROMBIN TIME / INR 2020-03-08 19:26:00 Joey Armendariz [facility] ACTIVATED PARTIAL THRMPLAS PAVAN 2020-03-08 19:26:00 Kady Armendariz [facility] N-TERMINAL PRO-BNP 2020-03-08 19:26:00 Kady Armendariz [facility] EKG-12 LEAD 2020-03-08 18:59:06 Kady [facility]endariz [facility] Laparoscopic Cholecystectomy [facility] Total Hysterectomy with Removal of Both Tubes and Ovaries [facility] Plan of Care Planned Activity Planned Date Details Comments Source Instructions [facility] Encounters Start Date/Time End Date/Time Encounter Type Admission Type Attending Clinicians Care Facility Care Department Encounter ID Source 2023-02-20 00:00:00 2023-02-20 00:00:00 Transition of Care Micki Kennedy 1.2.840.114 350.1.13.10 4.2.7.2.686 [id number] [facility] 2023-02-13 16:22:00 2023-02-19 15:41:00 Inpatient X CECILIO LANGE [facility] DARREN [id number] [facility] 2023-02-13 16:22:00 2023-02-19 15:41:00 Hospital Encounter Dilan Jelani [facility] 1.2.840.114 350.1.13.10 4.2.7.2.686 [id number] [facility] 2022-09-27 22:16:00 2022-09-28 02:39:00 Emergency X ADILIA GONZALEZ [facility] ERT [id number] [facility] 2022-09-27 22:16:00 2022-09-28 02:39:00 Emergency Adilia Gonzalez [facility] 1.2840.114 350.1.13.10 4.2.7.2.686 [id number] [facility] 2022-07-03 00:00:00 2022-07-03 00:00:00 Patient Secure Msg Doctor Unassigned, [place] [facility] 1.2840.114 350.1.13.10 4.2.7.2.686 [id number] [facility] 2022-07-02 16:08:00 2022-07-02 18:34:00 Emergency X TIGIST MART [facility] ERT [id number] [facility] 2022-07-02 16:08:00 2022-07-02 18:34:00 Emergency Tigist Mart [facility] 1.840.114 350.1.13.10 4.2.7.2.686 [id number] [facility] 2022-06-09 02:42:00 2022-06-09 04:14:00 Emergency X DILAN MONTEMAYOR [facility] ERT [id number] [facility] 2022-06-09 02:42:00 2022-06-09 04:14:00 Emergency Dilan Montemayor [facility] 1.840.114 350.1.13.10 4.2.7.2.686 [id number] [facility] 2022-05-07 04:59:00 2022-05-07 04:59:00 Outpatient Efren_J [facility] [id number] [facility] 2022-05-01 18:19:00 2022-05-01 21:07:00 Emergency MIKEY NICHOLAS [facility] ERT [id number] [facility] 2022-05-01 18:19:00 2022-05-01 21:07:00 Emergency Mikey Cortez [facility] 1.2840.114 350.1.13.10 4.2.7.2.686 [id number] [facility] 2021-09-09 12:44:00 2021-09-09 12:44:00 [facility] [id number] [facility] 2021-08-24 00:00:00 2021-08-24 00:00:00 Telephone JagdishAmanda quintanilla [facility] 1.2.840.114 350.1.13.10 4.2.7.2.686 [id number] [facility] 2021-08-13 01:49:00 2021-08-13 01:49:00 [facility]patient [facility] [id number] [facility] 2021-08-05 12:57:00 2021-08-05 12:57:00 Outpatient NicolasJ [facility] [id number] [facility] 2021-07-19 00:00:00 2021-07-19 00:00:00 Transition of Care Micki Kennedy Romo Kana 1.2.840.114 350.1.13.10 4.2.7.2.686 [id number] [facility] 2021-07-15 20:32:00 2021-07-18 17:57:00 Hospital Encounter Mirta Ojeda Mahmoud Armstrong, Robin [facility] 1.2.840.114 350.1.13.10 4.2.7.2.686 [id number] [facility] 2021-07-15 20:32:00 2021-07-15 20:32:00 Emergency X Mirta OJEDA [facility] ERT [id number] [facility] 2021-07-08 20:57:00 2021-07-09 02:44:00 Emergency Kady Armendariz [facility] 1.2.840.114 350.1.13.10 4.2.7.2.686 [id number] [facility] 2021-07-08 20:57:00 2021-07-08 20:57:00 Emergency KADY ENGEL [facility] ERT [id number] [facility] 2020-11-01 11:16:00 2020-11-01 15:26:00 Emergency Mirta Ojeda [facility] 1.2.840.114 350.1.13.10 4.2.7.2.686 [id number] [facility] 2020-11-01 11:16:00 2020-11-01 15:26:00 Emergency X Mirta OJEDA [facility] ERT [id number] [facility] 2020-11-01 00:00:00 2020-11-01 00:00:00 Orders Only Doctor Unassigned, [place] [facility] 1.2.840.114 350.1.13.10 4.2.7.2.686 [id number] [facility] 2020-09-13 02:43:00 2020-09-13 02:43:00 Outpatient Young_J [facility] [id number] [facility] 2020-08-20 11:01:00 2020-08-21 16:17:00 Emergency Rylan Garcia Rebecca [facility] 1.2.840.114 350.1.13.10 4.2.7.2.686 [id number] [facility] 2020-08-20 10:55:00 2020-08-20 10:55:00 Emergency X RYLAN GARCIA [facility] ERT [id number] [facility] 2020-04-03 09:09:00 2020-04-03 09:09:00 [facility] [id number] [facility] 2020-03-30 05:13:00 2020-03-30 05:13:00 Outpatient Young_J [facility] [id number] [facility] 2020-03-30 00:00:00 2020-03-30 00:00:00 Jono Schwartz, DO: [address], [place] [address] , Ph. [phone] [facility] General surgery [id number] [facility] 2020-03-24 12:53:00 2020-03-24 12:53:00 Outpatient Young_J [facility] [id number] [facility] 2020-03-23 10:14:00 2020-03-23 10:14:00 Outpatient Young_J [facility] [id number] [facility] 2020-03-08 13:52:40 2020-03-08 16:52:00 Emergency X KADY ARMENDARIZ [facility] ERT [id number] [facility] 2020-03-08 13:52:40 2020-03-08 16:52:00 Emergency Kady Armendariz [facility] 1.2.840.114 350.1.13.10 4.2.7.2.686 [id number] 2020-03-08 13:52:40 2020-03-08 16:52:00 Emergency Kady Armendariz [facility] 1.2.840.114 350.1.13.10 4.2.7.2.686 [id number] [facility] 2020-03-08 13:38:00 2020-03-08 13:38:00 Emergency X [facility] ERT [id number] [facility] Results Test Description Test Time Test Comments Results Result Co mments Source [facility] (NA, K, CL, CO2, GLUCOSE, BUN, CREATININE, CA)2023-02-19 10:43:49* Test Item Value Reference Range Interpretation Comme nts NA (test code = 4318365220) 138 mmol/L 135-145 K (test code = 9018250565) 4.3 mmol/L 3.5-5.0 CL (test code = 1422684468) 106 mmol/L 98-108 CO2 TOTAL (test code = 6949411201) 32 mmol/L 23-31 H AGAP (test code = 4433914567) 2-16 L BUN (test code = 2573497417) 21 mg/dL 7-23 GLUCOSE (test code = 7403958844) 87 mg/dL 70-110 CREATININE (test code = 1096729946) 0.76 mg/dL 0.50-1.04 CALCIUM (test code = 1961265331) 8.9 mg/dL 8.6-10.6 eGFR (test code = 5633746370) 77.4 mL/min/1.73m2 RONNIE (test code = RONNIE) Association of Glomerular Filtration Rate (GFR) and Staging of Kidney Disease* + --+ --+ ------+| GFR (mL/min/1.73 m2) ?| With Kidney Damage ?| ?Without Kidney Damage+ --------+ --------+ +| ?>90 ?| ?Stage one ?| ? Normal ?+ ---+ ---+ -------+| ?60-89 ?| ?Stage two ?| ? Decreased GFR ? + --+ --+ ------+| ?30-59 ?| ?Stage three ?| ? Stage three ? + --+ --+ ------+| ?15-29 ?| ?Stage four ? | ? Stage four ?+ ---+ ---+ -------+| ?<15 (or dialysis) ? ?| ?Stage five ? | ? Stage five ?+ ---+ ---+ -------+ *Each stage assumes the associated GFR level has been in effect for at least three months. ?Stages 1 to 5, with or without kidney disease, indicate chronic kidney disease. Notes: Determination of stages one and two (with eGFR >59mL/min/1.73 m2) requires estimation of kidney damage for at least three months as defined by structural or functional abnormalities of the kidney, manifested by either:Pathological abnormalities or Markers of kidney damage (including abnormalities in the composition of the blood or urine or abnormalities in imaging tests). Lab Interpretation (test code = 17099-2) [facility] [id number] 23:01:40* Test Item Value Reference Range Interpretation Comme nts Blood Culture-Aerobic (test code = 92013-3) No organisms isolated No growth Previous preliminary verified result was Culture In Progress on 02/13/2023 at 2101 CDTPrevious preliminary verified result was No growth at 24 hours on 02/14/2023 at 1801 CDTPrevious preliminary verified result was No growth at 48 hours on 02/15/2023 at 1801 CDTPrevious preliminary verified result was No growth at 72 hours on 02/16/2023 at 1801 CDT Blood Culture-Anaerobic (test code = 70004-1) No organisms isolated No growth Previous preliminary verified result was Culture In Progress on 02/13/2023 at 2101 CDTPrevious preliminary verified result was No growth at 24 hours on 02/14/2023 at 1801 CDTPrevious preliminary verified result was No growth at 48 hours on 02/15/2023 at 1801 CDTPrevious preliminary verified result was No growth at 72 hours on 02/16/2023 at 1801 CDT Lab Interpretation (test code = 75185-1) [facility] CULTURE [id number] 23:01:40* Test Item Value Reference Range Interpretation Comme nts Blood Culture-Aerobic (test code = 91935-9) No organisms isolated No growth Previous preliminary verified result was Culture In Progress on 02/13/2023 at 2101 CDTPrevious preliminary verified result was No growth at 24 hours on 02/14/2023 at 1801 CDTPrevious preliminary verified result was No growth at 48 hours on 02/15/2023 at 1801 CDTPrevious preliminary verified result was No growth at 72 hours on 02/16/2023 at 1801 CDT Blood Culture-Anaerobic (test code = 78544-8) No organisms isolated No growth Previous preliminary verified result was Culture In Progress on 02/13/2023 at 2101 CDTPrevious preliminary verified result was No growth at 24 hours on 02/14/2023 at 1801 CDTPrevious preliminary verified result was No growth at 48 hours on 02/15/2023 at 1801 CDTPrevious preliminary verified result was No growth at 72 hours on 02/16/2023 at 1801 CDT Lab Interpretation (test code = 21221-6) [id number] 23:32:00* Test Item Value Reference Range Interpretation Comme nts TROPONIN I (test code = 8691282661) 0.003 ng/mL <=0.034 RONNIE (test code = RONNIE) Reference (Normal) Range (defined by the 99th percentile reference limit): <= 0.034 ng/mL Note: Cardiac troponin begins to rise 3-4 hours after the onset of ischemia. Repeat in 4-6 hours if the sample was drawn within 3-4 hours of the onset of the symptom and found normal. Diagnosis of myocardial injury is made with acute changes in cTn concentrations with at least one serial sample above the 99th percentile upper reference limit (URL), taken together with the patient's clinical presentation. Biotin has been reported to cause a negative bias, interpret results relative to patient's use of biotin. Lab Interpretation (test code = 54513-9) [facility] [id number] 23:29:00* Test Item Value Reference Range Interpretation Comme nts NT-proBNP (test code = 6709084910) 51 pg/mL <=125 RONNIE (test code = RONNIE) Biotin has been reported to cause a negative bias, interpret results relative to patient's use of biotin. Lab Interpretation (test code = 16847-5) [facility] 23:17:58* Test Item Value Reference Range Interpretation Comme nts MAGNESIUM (test code = 7051970179) 1.7 mg/dL 1.7-2.4 Lab Interpretation (test cod e = 98225-6) [facility] (32585)2023-02-13 23:17:38* Test Item Value Reference Range Interpretation Comme nts NA (test code = 6513471169) 138 mmol/L 135-145 K (test code = 2211760840) 3.9 mmol/L 3.5-5.0 CL (test code = 1059164389) 104 mmol/L 98-108 CO2 TOTAL (test code = 2929632827) 26 mmol/L 23-31 AGAP (test code = 8118606851) 8 2-16 BUN (test code = 1997753809) 10 mg/dL 7-23 GLUCOSE (test code = 4032919757) 89 mg/dL 70-110 CREATININE (test code = 0910149756) 0.70 mg/dL 0.50-1.04 TOTAL BILI (test code = 0865335464) 0.5 mg/dL 0.1-1.1 CALCIUM (test code = 8543785774) 8.4 mg/dL 8.6-10.6 L T PROTEIN (test code = 9551905362) 6.0 g/dL 6.3-8.2 L ALBUMIN (test code = 9220317739) 3.2 g/dL 3.5-5.0 L ALK PHOS (test code = 0517416771) 66 U/L 34-122 ALTv (test code = 1742-6) 13 U/L 5-35 AST(SGOT) (test code = 4258609253) 17 U/L 13-40 eGFR (test code = 8209950992) 85.1 mL/min/1.73m2 RONNIE (test code = RONNIE) Association of Glomerular Filtration Rate (GFR) and Staging of Kidney Disease* + --+ --+ ------+| GFR (mL/min/1.73 m2) ?| With Kidney Damage ?| ?Without Kidney Damage+ --------+ --------+ +| ?>90 ?| ?Stage one ?| ? Normal ?+ ---+ ---+ -------+| ?60-89 ?| ?Stage two ?| ? Decreased GFR ? + --+ --+ ------+| ?30-59 ?| ?Stage three ?| ? Stage three ? + --+ --+ ------+| ?15-29 ?| ?Stage four ? | ? Stage four ?+ ---+ ---+ -------+| ?<15 (or dialysis) ? ?| ?Stage five ? | ? Stage five ?+ ---+ ---+ -------+ *Each stage assumes the associated GFR level has been in effect for at least three months. ?Stages 1 to 5, with or without kidney disease, indicate chronic kidney disease. Notes: Determination of stages one and two (with eGFR >59mL/min/1.73 m2) requires estimation of kidney damage for at least three months as defined by structural or functional abnormalities of the kidney, manifested by either:Pathological abnormalities or Markers of kidney damage (including abnormalities in the composition of the blood or urine or abnormalities in imaging tests). Lab Interpretation (test code = 87280-1) Abnormal [facility] WITH [id number] 21:46:07* Test Item Value Reference Range Interpretation Comme nts WBC (test code = 6690-2) 13.10 See_Comment H [Automated [employer]] The system which generated this result transmitted reference range: 4.30 - 11.10 10*3/?L. The reference range was not used to interpret this result as normal/abnormal. RBC (test code = 789-8) 5.27 See_Comment H [Automated [employer]] The system which generated this result transmitted reference range: 3.93 - 5.25 10*6/?L. The reference range was not used to interpret this result as normal/abnormal. HGB (test code = 718-7) 16.0 g/dL 11.6-15.0 H HCT (test code = 4544-3) 49.9 % 35.7-45.2 H MCV (test code = 787-2) 94.7 fL 80.6-95.5 MCH (test code = 785-6) 30.4 pg 25.9-32.8 MCHC (test code = 786-4) 32.1 g/dL 31.6-35.1 RDW-SD (test code = 47668-3) 42.6 fL 39.0-49.9 RDW-CV (test code = 788-0) 12.2 % 12.0-15.5 PLT (test code = 777-3) 248 See_Comment [Automated [employer]] The system which generated this result transmitted reference range: 166 - 358 10*3/?L. The reference range was not used to interpret this result as normal/abnormal. MPV (test code = 71220-7) 10.9 fL 9.5-12.9 NRBC/100 WBC (test code = 4466765992) 0.0 See_Comment [Automated [employer] ssage] The system which generated this result transmitted reference range: 0.0 - 10.0 /100 WBCs. The reference range was not used to interpret this result as normal/abnormal. NRBC x10^3 (test code = 6877506046) See_Comment [Automated messa ge] The system which generated this result transmitted reference range: 10*3/?L. The reference range was not used to interpret this result as normal/abnormal. GRAN MAT (NEUT) % (test code = 770-8) 73.5 % IMM GRAN % (test code = 3047044168) 0.20 % LYMPH % (test code = 736-9) 19.0 % MONO % (test code = 5905-5) 6.9 % EOS % (test code = 713-8) 0.0 % BASO % (test code = 706-2) 0.4 % GRAN MAT x10^3(ANC) (test code = 2333809374) 9.62 10*3/uL 1.88-7.09 H IMM GRAN x10^3 (test code = 9888554677) 0.03 10*3/uL 0.00-0.06 LYMPH x10^3 (test code = 731-0) 2.49 10*3/uL 1.32-3.29 MONO x10^3 (test code = 742-7) 0.91 10*3/uL 0.33-0.92 EOS x10^3 (test code = 711-2) 0.03-0.39 L BASO x10^3 (test code = 704-7) 0.05 10*3/uL 0.01-0.07 Lab Interpretation (test code = 89843-1) Abnormal [facility] WITH [id number] 08:39:42* Test Item Value Reference Range Interpretation Comme nts WBC (test code = 6690-2) See_Comment [Automated messa ge] The system which generated this result transmitted reference range: 4.30 - 11.10 10*3/?L. The reference range was not used to interpret this result as normal/abnormal. RBC (test code = 789-8) See_Comment [Automated messa ge] The system which generated this result transmitted reference range: 3.93 - 5.25 10*6/?L. The reference range was not used to interpret this result as normal/abnormal. HGB (test code = 718-7) 15.6 g/dL 11.6-15 H HCT (test code = 4544-3) 47.7 % 35.7-45.2 H MCV (test code = 787-2) 93.7 fL 80.6-95.5 MCH (test code = 785-6) 30.6 pg 25.9-32.8 MCHC (test code = 786-4) 32.7 g/dL 31.6-35.1 RDW-SD (test code = 29350-5) 42.3 fL 39-49.9 RDW-CV (test code = 788-0) 12.1 % 12-15.5 PLT (test code = 777-3) See_Comment [Automated messa ge] The system which generated this result transmitted reference range: 166 - 358 10*3/?L. The reference range was not used to interpret this result as normal/abnormal. MPV (test code = 23259-3) 10.5 fL 9.5-12.9 NRBC/100 WBC (test code = 5594786759) See_Comment [Automated [employer] ssage] The system which generated this result transmitted reference range: 0.0 - 10.0 /100 WBCs. The reference range was not used to interpret this result as normal/abnormal. NRBC x10^3 (test code = 0750308502) See_Comment [Automated [employer]] The system which generated this result transmitted reference range: 10*3/?L. The reference range was not used to interpret this result as normal/abnormal. GRAN MAT (NEUT) % (test code = 770-8) 53.4 % IMM GRAN % (test code = 4114812304) 0.90 % LYMPH % (test code = 736-9) 39.5 % MONO % (test code = 5905-5) 5.5 % EOS % (test code = 713-8) 0.0 % BASO % (test code = 706-2) 0.7 % GRAN MAT x10^3(ANC) (test code = 5394452895) 5.61 10*3/uL 1.88-7.09 IMM GRAN x10^3 (test code = 5272022864) 0.09 10*3/uL 0-0.06 H LYMPH x10^3 (test code = 731-0) 4.14 10*3/uL 1.32-3.29 H MONO x10^3 (test code = 742-7) 0.58 10*3/uL 0.33-0.92 EOS x10^3 (test code = 711-2) 0.03-0.39 L BASO x10^3 (test code = 704-7) 0.07 10*3/uL 0.01-0.07 LG GRAN LYMPHS (test code = 5576420138) Rare Rare Lab Interpretation (test code = 06590-8) Abnormal [facility]. METABOLIC PANEL (14037)2022-06-09 08:31:49* Test Item Value Reference Range Interpretation Comme nts NA (test code = 1704844157) 140 mmol/L 135-145 K (test code = 7952740763) 4.3 mmol/L 3.5-5 CL (test code = 0153744973) 107 mmol/L 98-108 CO2 TOTAL (test code = 5998810996) 24 mmol/L 23-31 AGAP (test code = 7381874963) 2-16 BUN (test code = 9337189626) 16 mg/dL 7-23 GLUCOSE (test code = 8211145501) 135 mg/dL 70-110 H CREATININE (test code = 7108128850) 0.91 mg/dL 0.5-1.04 TOTAL BILI (test code = 0086799066) 0.5 mg/dL 0.1-1.1 CALCIUM (test code = 3762101336) 10.1 mg/dL 8.6-10.6 T PROTEIN (test code = 5019467095) 7.1 g/dL 6.3-8.2 ALBUMIN (test code = 0300188859) 4.8 g/dL 3.5-5 ALK PHOS (test code = 2891098077) 82 U/L 34-122 ALTv (test code = 1742-6) 15 U/L 5-35 AST(SGOT) (test code = 0541016544) 19 U/L 13-40 eGFR (test code = 8723301782) mL/min/1.73m2 RONNIE (test code = RONNIE) Association of Glomerular Filtration Rate (GFR) and Staging of Kidney Disease* + --+ --+ ------+| GFR (mL/min/1.73 m2) ?| With Kidney Damage ?| ?Without Kidney Damage+ --------+ --------+ +| ?>90 ?| ?Stage one ?| ? Normal ?+ ---+ ---+ -------+| ?60-89 ?| ?Stage two ?| ? Decreased GFR ? + --+ --+ ------+| ?30-59 ?| ?Stage three ?| ? Stage three ? + --+ --+ ------+| ?15-29 ?| ?Stage four ? | ? Stage four ?+ ---+ ---+ -------+| ?<15 (or dialysis) ? ?| ?Stage five ? | ? Stage five ?+ ---+ ---+ -------+ *Each stage assumes the associated GFR level has been in effect for at least three months. ?Stages 1 to 5, with or without kidney disease, indicate chronic kidney disease. Notes: Determination of stages one and two (with eGFR >59mL/min/1.73 m2) requires estimation of kidney damage for at least three months as defined by structural or functional abnormalities of the kidney, manifested by either:Pathological abnormalities or Markers of kidney damage (including abnormalities in the composition of the blood or urine or abnormalities in imaging tests). Lab Interpretation (test code = 15621-1) [facility]29* Test Item Value Reference Range Interpretation Comme nts LIPASE (test code = 4966147438) 69 U/L 0-220 Lab Interpretation (test cod e = 13120-5) [facility] (73797)2022-05-02 00:23:50* Test Item Value Reference Range Interpretation Comme nts NA (test code = 7846289491) 141 mmol/L 135-145 K (test code = 4131989890) 4.8 mmol/L 3.5-5.0 CL (test code = 8699611547) 108 mmol/L 98-108 CO2 TOTAL (test code = 3566118335) 27 mmol/L 23-31 AGAP (test code = 4136049910) 2-16 BUN (test code = 6501472574) 13 mg/dL 7-23 GLUCOSE (test code = 7899144842) 97 mg/dL 70-110 CREATININE (test code = 8204868410) 0.78 mg/dL 0.50-1.04 TOTAL BILI (test code = 6804046981) 0.3 mg/dL 0.1-1.1 CALCIUM (test code = 4594137241) 9.6 mg/dL 8.6-10.6 T PROTEIN (test code = 9473696300) 6.3 g/dL 6.3-8.2 ALBUMIN (test code = 0167313306) 3.7 g/dL 3.5-5.0 ALK PHOS (test code = 7272510047) 85 U/L 34-122 ALTv (test code = 1742-6) 13 U/L 5-35 AST(SGOT) (test code = 9562703459) 17 U/L 13-40 eGFR (test code = 5117317851) mL/min/1.73m2 RONNIE (test code = RONNIE) Association of Glomerular Filtration Rate (GFR) and Staging of Kidney Disease* + + +- +| GFR (mL/min/1.73 m2) ?| With Kidney Damage ?| ?Without Kidney Damage+ ------+ ----+ ------+| ?>90 ?| ?Stage one ?| ? Normal ?+ -+ + -+| ?60-89 ?| ?Stage two ?| ? Decreased GFR ? + + +- +| ?30-59 ?| ?Stage three ?| ? Stage three ? + + +- +| ?15-29 ?| ?Stage four ? | ? Stage four ?+ -+ + -+| ?<15 (or dialysis) ? ?| ?Stage five ? | ? Stage five ?+ -+ + -+ *Each stage assumes the associated GFR level has been in effect for at least three months. ?Stages 1 to 5, with or without kidney disease, indicate chronic kidney disease. Notes: Determination of stages one and two (with eGFR >59mL/min/1.73 m2) requires estimation of kidney damage for at least three months as defined by structural or functional abnormalities of the kidney, manifested by either:Pathological abnormalities or Markers of kidney damage (including abnormalities in the composition of the blood or urine or abnormalities in imaging tests). [facility] WITH [id number] 00:07:06* Test Item Value Reference Range Interpretation Comme nts WBC (test code = 6690-2) See_Comment [Automated messa ge] The system which generated this result transmitted reference range: 4.30 - 11.10 10*3/?L. The reference range was not used to interpret this result as normal/abnormal. RBC (test code = 789-8) See_Comment [Automated [employer]] The system which generated this result transmitted reference range: 3.93 - 5.25 10*6/?L. The reference range was not used to interpret this result as normal/abnormal. HGB (test code = 718-7) 14.9 g/dL 11.6-15.0 HCT (test code = 4544-3) 45.6 % 35.7-45.2 H MCV (test code = 787-2) 94.8 fL 80.6-95.5 MCH (test code = 785-6) 31.0 pg 25.9-32.8 MCHC (test code = 786-4) 32.7 g/dL 31.6-35.1 RDW-SD (test code = 85086-8) 42.7 fL 39.0-49.9 RDW-CV (test code = 788-0) 12.2 % 12.0-15.5 PLT (test code = 777-3) See_Comment [Automated [employer] ge] The system which generated this result transmitted reference range: 166 - 358 10*3/?L. The reference range was not used to interpret this result as normal/abnormal. MPV (test code = 64345-8) 11.0 fL 9.5-12.9 NRBC/100 WBC (test code = [id number]) See_Comment [Automated [employer] ssage] The system which generated this result transmitted reference range: 0.0 - 10.0 /100 WBCs. The reference range was not used to interpret this result as normal/abnormal. NRBC x10^3 (test code = 4357526679) <0.01 See_Comment [Automated messa ge] The system which generated this result transmitted reference range: 10*3/?L. The reference range was not used to interpret this result as normal/abnormal. GRAN MAT (NEUT) % (test code = 770-8) 58.1 % IMM GRAN % (test code = 4054331915) 0.20 % LYMPH % (test code = 736-9) 33.7 % MONO % (test code = 5905-5) 7.4 % EOS % (test code = 713-8) 0.0 % BASO % (test code = 706-2) 0.6 % GRAN MAT x10^3(ANC) (test code = 7334054232) 5.20 10*3/uL 1.88-7.09 IMM GRAN x10^3 (test code = 3299137339) <0.03 0.00-0.06 LYMPH x10^3 (test code = 731-0) 3.01 10*3/uL 1.32-3.29 MONO x10^3 (test code = 742-7) 0.66 10*3/uL 0.33-0.92 EOS x10^3 (test code = 711-2) <0.03 0.03-0.39 L BASO x10^3 (test code = 704-7) 0.05 10*3/uL 0.01-0.07 Lab Interpretation (test code = 33981-8) Abnormal [facility] WITH [id number] 14:42:25* Test Item Value Reference Range Interpretation Comme nts WBC (test code = 6690-2) See_Comment H [Automated message] The system which generated this result transmitted reference range: 4.30 - 11.10 10*3/?L. The reference range was not used to interpret this result as normal/abnormal. RBC (test code = 789-8) See_Comment [Automated message] The system which generated this result transmitted reference range: 3.93 - 5.25 10*6/?L. The reference range was not used to interpret this result as normal/abnormal. HGB (test code = 718-7) 13.6 g/dL 11.6-15.0 HCT (test code = 4544-3) 40.5 % 35.7-45.2 MCV (test code = 787-2) 98.5 fL 80.6-95.5 H MCH (test code = 785-6) 33.1 pg 25.9-32.8 H MCHC (test code = 786-4) 33.6 g/dL 31.6-35.1 RDW-SD (test code = 00934-0) 46.7 fL 39.0-49.9 RDW-CV (test code = 788-0) 13.0 % 12.0-15.5 PLT (test code = 777-3) See_Comment [Automated message] The system which generated this result transmitted reference range: 166 - 358 10*3/?L. The reference range was not used to interpret this result as normal/abnormal. MPV (test code = 54851-1) 10.8 fL 9.5-12.9 NRBC/100 WBC (test code = 1706341187) See_Comment [Automated message] The system which generated this result transmitted reference range: 0.0 - 10.0 /100 WBCs. The reference range was not used to interpret this result as normal/abnormal. NRBC x10^3 (test code = 6445666709) <0.01 See_Comment [Automated message] The system which generated this result transmitted reference range: 10*3/?L. The reference range was not used to interpret this result as normal/abnormal. GRAN MAT (NEUT) % (test code = 770-8) 86.2 % IMM GRAN % (test code = 9937536196) 0.90 % LYMPH % (test code = 736-9) 9.3 % MONO % (test code = 5905-5) 3.5 % EOS % (test code = 713-8) 0.0 % BASO % (test code = 706-2) 0.1 % GRAN MAT x10^3(ANC) (test code = 2072260830) 16.36 10*3/uL 1.88-7.09 H IMM GRAN x10^3 (test code = 0524478629) 0.17 10*3/uL 0.00-0.06 H LYMPH x10^3 (test code = 731-0) 1.76 10*3/uL 1.32-3.29 MONO x10^3 (test code = 742-7) 0.67 10*3/uL 0.33-0.92 EOS x10^3 (test code = 711-2) <0.03 0.03-0.39 L BASO x10^3 (test code = 704-7) <0.03 0.01-0.07 Lab Interpretation (test code = 63884-4) [facility] (NA, K, CL, CO2, GLUCOSE, BUN, CREATININE, CA)2021-07-18 10:44:41* Test Item Value Reference Range Interpretation Comme nts NA (test code = 4882337734) 136 mmol/L 135-145 K (test code = 3687320092) 4.9 mmol/L 3.5-5.0 CL (test code = 9684740980) 106 mmol/L 98-108 CO2 TOTAL (test code = 2369935089) 27 mmol/L 23-31 AGAP (test code = 6948425480) 2-16 BUN (test code = 7860832201) 22 mg/dL 7-23 GLUCOSE (test code = 8747226883) 139 mg/dL 70-110 H CREATININE (test code = 1137892952) 0.71 mg/dL 0.50-1.04 CALCIUM (test code = 2658875267) 9.4 mg/dL 8.6-10.6 eGFR (test code = 1175575825) mL/min/1.73m2 RONNIE (test code = RONNIE) Association of Glomerular Filtration Rate (GFR) and Staging of Kidney Disease* + --+ --+ ------+| GFR (mL/min/1.73 m2) ?| With Kidney Damage ?| ?Without Kidney Damage+ --------+ --------+ +| ?>90 ?| ?Stage one ?| ? Normal ?+ ---+ ---+ -------+| ?60-89 ?| ?Stage two ?| ? Decreased GFR ? + --+ --+ ------+| ?30-59 ?| ?Stage three ?| ? Stage three ? + --+ --+ ------+| ?15-29 ?| ?Stage four ? | ? Stage four ?+ ---+ ---+ -------+| ?<15 (or dialysis) ? ?| ?Stage five ? | ? Stage five ?+ ---+ ---+ -------+ *Each stage assumes the associated GFR level has been in effect for at least three months. ?Stages 1 to 5, with or without kidney disease, indicate chronic kidney disease. Notes: Determination of stages one and two (with eGFR >59mL/min/1.73 m2) requires estimation of kidney damage for at least three months as defined by structural or functional abnormalities of the kidney, manifested by either:Pathological abnormalities or Markers of kidney damage (including abnormalities in the composition of the blood or urine or abnormalities in imaging tests). Lab Interpretation (test code = 09031-0) [facility] [id number] 13:37:46* Test Item Value Reference Range Interpretation Comments TROPONIN I (test code = 0678304366) 0.005 ng/mL See_Comment [Automated message] The system which generated this result transmitted reference range: <=0.034. The reference range was not used to interpret this result as normal/abnormal. RONNIE (test code = RONNIE) Reference (Normal) Range (defined by the 99th percentile reference limit): <= 0.034 ng/mL Note: Cardiac troponin begins to rise 3-4 hours after the onset of ischemia. Repeat in 4-6 hours if the sample was drawn within 3-4 hours of the onset of the symptom and found normal. Diagnosis of myocardial injury is made with acute changes in cTn concentrations with at least one serial sample above the 99th percentile upper reference limit (URL), taken together with the patient's clinical presentation. Biotin has been reported to cause a negative bias, interpret results relative to patient's use of biotin. Lab Interpretation (test code = 08653-9) [facility])(TOTAL CHOLESTEROL, TRIGLYCERIDES, HDL)2021-07-17 11:13:39* Test Item Value Reference Range Interpretation Comme nts CHOL (test code = 9988451695) 182 mg/dL 120-200 HDL (test code = 1810805387) 83 mg/dL >50 HDLC RATIO (test code = 6783839803) See_Comment [Automated [employer]] The system which generated this result transmitted reference range: <=4.5. The reference range was not used to interpret this result as normal/abnormal. TRIG (test code = 1769063591) 149 mg/dL 30-170 LDL CHOL (test code = 53625-3) 69 mg/dL See_Comment [Automated [employer]] The system which generated this result transmitted reference range: <=160. The reference range was not used to interpret this result as normal/abnormal. VLDL (test code = 0835069094) 30 mg/dL 5-60 Lab Interpretation (test code = 97428-4) Normal [facility] METABOLIC PANEL (NA, K, CL, CO2, GLUCOSE, BUN, CREATININE, CA)2021-07-17 11:13:39* Test Item Value Reference Range Interpretation Comme nts NA (test code = 9746134610) 139 mmol/L 135-145 K (test code = 2916001292) 4.6 mmol/L 3.5-5.0 CL (test code = 3080105818) 105 mmol/L 98-108 CO2 TOTAL (test code = 5743805166) 24 mmol/L 23-31 AGAP (test code = 7198386568) 2-16 BUN (test code = 4580113394) 26 mg/dL 7-23 H GLUCOSE (test code = 8479687959) 154 mg/dL 70-110 H CREATININE (test code = 6900790900) 0.84 mg/dL 0.50-1.04 CALCIUM (test code = 4265652727) 9.7 mg/dL 8.6-10.6 eGFR (test code = 8936103249) mL/min/1.73m2 RONNIE (test code = RONNIE) Association of Glomerular Filtration Rate (GFR) and Staging of Kidney Disease* + --+ --+ ------+| GFR (mL/min/1.73 m2) ?| With Kidney Damage ?| ?Without Kidney Damage+ --------+ --------+ +| ?>90 ?| ?Stage one ?| ? Normal ?+ ---+ ---+ -------+| ?60-89 ?| ?Stage two ?| ? Decreased GFR ? + --+ --+ ------+| ?30-59 ?| ?Stage three ?| ? Stage three ? + --+ --+ ------+| ?15-29 ?| ?Stage four ? | ? Stage four ?+ ---+ ---+ -------+| ?<15 (or dialysis) ? ?| ?Stage five ? | ? Stage five ?+ ---+ ---+ -------+ *Each stage assumes the associated GFR level has been in effect for at least three months. ?Stages 1 to 5, with or without kidney disease, indicate chronic kidney disease. Notes: Determination of stages one and two (with eGFR >59mL/min/1.73 m2) requires estimation of kidney damage for at least three months as defined by structural or functional abnormalities of the kidney, manifested by either:Pathological abnormalities or Markers of kidney damage (including abnormalities in the composition of the blood or urine or abnormalities in imaging tests). Lab Interpretation (test code = 42057-4) Abnormal [facility] WITH [id number] 11:10:10* Test Item Value Reference Range Interpretation Comme nts WBC (test code = 6690-2) See_Comment H [Automated message] The system which generated this result transmitted reference range: 4.30 - 11.10 10*3/?L. The reference range was not used to interpret this result as normal/abnormal. RBC (test code = 789-8) See_Comment [Automated message] The system which generated this result transmitted reference range: 3.93 - 5.25 10*6/?L. The reference range was not used to interpret this result as normal/abnormal. HGB (test code = 718-7) 14.8 g/dL 11.6-15.0 HCT (test code = 4544-3) 45.0 % 35.7-45.2 MCV (test code = 787-2) 99.1 fL 80.6-95.5 H MCH (test code = 785-6) 32.6 pg 25.9-32.8 MCHC (test code = 786-4) 32.9 g/dL 31.6-35.1 RDW-SD (test code = 58044-6) 47.6 fL 39.0-49.9 RDW-CV (test code = 788-0) 13.0 % 12.0-15.5 PLT (test code = 777-3) See_Comment [Automated message] The system which generated this result transmitted reference range: 166 - 358 10*3/?L. The reference range was not used to interpret this result as normal/abnormal. MPV (test code = 68615-3) 10.5 fL 9.5-12.9 NRBC/100 WBC (test code = 8877432479) See_Comment [Automated message] The system which generated this result transmitted reference range: 0.0 - 10.0 /100 WBCs. The reference range was not used to interpret this result as normal/abnormal. NRBC x10^3 (test code = 5342091340) <0.01 See_Comment [Automated message] The system which generated this result transmitted reference range: 10*3/?L. The reference range was not used to interpret this result as normal/abnormal. GRAN MAT (NEUT) % (test code = 770-8) 89.0 % IMM GRAN % (test code = 4935411896) 0.90 % LYMPH % (test code = 736-9) 6.7 % MONO % (test code = 5905-5) 3.3 % EOS % (test code = 713-8) 0.0 % BASO % (test code = 706-2) 0.1 % GRAN MAT x10^3(ANC) (test code = 0819049610) 16.50 10*3/uL 1.88-7.09 H IMM GRAN x10^3 (test code = 6554458912) 0.16 10*3/uL 0.00-0.06 H LYMPH x10^3 (test code = 731-0) 1.24 10*3/uL 1.32-3.29 L MONO x10^3 (test code = 742-7) 0.62 10*3/uL 0.33-0.92 EOS x10^3 (test code = 711-2) <0.03 0.03-0.39 L BASO x10^3 (test code = 704-7) <0.03 0.01-0.07 HYPERSEG NEUTS (test code = 765-8) Present See_Comment A [Automated message] The system which generated this result transmitted reference range: (none). The reference range was not used to interpret this result as normal/abnormal. Lab Interpretation (test code = 84473-0) Abnormal [facility]ALTHJULIETA [id number] 09:50:10* Test Item Value Reference Range Interpretation Comments TROPONIN I (test code = 9622933153) 0.045 ng/mL See_Comment H [Automated message] The system which generated this result transmitted reference range: <=0.034. The reference range was not used to interpret this result as normal/abnormal. RONNIE (test code = RONNIE) Reference (Normal) Range (defined by the 99th percentile reference limit): <= 0.034 ng/mL Note: Cardiac troponin begins to rise 3-4 hours after the onset of ischemia. Repeat in 4-6 hours if the sample was drawn within 3-4 hours of the onset of the symptom and found normal. Diagnosis of myocardial injury is made with acute changes in cTn concentrations with at least one serial sample above the 99th percentile upper reference limit (URL), taken together with the patient's clinical presentation. Biotin has been reported to cause a negative bias, interpret results relative to patient's use of biotin. Lab Interpretation (test code = 87795-4) Abnormal [facility] CenterGLY[facility]OSYLATED [facility]OGLOBIN (A1C)2021-07-16 09:44:12* Test Item Value Reference Range Interpretation Comme nts HGB A1C (test code = 4548-4) 5.6 % 4.0-5.7 RONNIE (test code = RONNIE) Reference RangesNormal: <5.7%Prediabetes: 5.7 - 6.4%Diabetes: > 6.5% Lab Interpretation (test code = 90220-6) [facility] (87064)2021-07-16 09:40:50* Test Item Value Reference Range Interpretation Comme nts NA (test code = 4693475032) 135 mmol/L 135-145 K (test code = 1023179299) 4.5 mmol/L 3.5-5.0 CL (test code = 7510849370) 105 mmol/L 98-108 CO2 TOTAL (test code = 8518032609) 23 mmol/L 23-31 AGAP (test code = 1767148265) 2-16 BUN (test code = 1409330653) 13 mg/dL 7-23 GLUCOSE (test code = 6809637805) 169 mg/dL 70-110 H CREATININE (test code = 0602007174) 0.77 mg/dL 0.50-1.04 TOTAL BILI (test code = 3909205200) 0.6 mg/dL 0.1-1.1 CALCIUM (test code = 1733375538) 9.0 mg/dL 8.6-10.6 T PROTEIN (test code = 6344123665) 6.3 g/dL 6.3-8.2 ALBUMIN (test code = 0414394868) 3.8 g/dL 3.5-5.0 ALK PHOS (test code = 3955940382) 71 U/L 34-122 ALTv (test code = 1742-6) 26 U/L 5-35 AST(SGOT) (test code = 4537418615) 19 U/L 13-40 eGFR (test code = 5938549149) mL/min/1.73m2 RONNIE (test code = RONNIE) Association of Glomerular Filtration Rate (GFR) and Staging of Kidney Disease* + --+ --+ ------+| GFR (mL/min/1.73 m2) ?| With Kidney Damage ?| ?Without Kidney Damage+ --------+ --------+ +| ?>90 ?| ?Stage one ?| ? Normal ?+ ---+ ---+ -------+| ?60-89 ?| ?Stage two ?| ? Decreased GFR ? + --+ --+ ------+| ?30-59 ?| ?Stage three ?| ? Stage three ? + --+ --+ ------+| ?15-29 ?| ?Stage four ? | ? Stage four ?+ ---+ ---+ -------+| ?<15 (or dialysis) ? ?| ?Stage five ? | ? Stage five ?+ ---+ ---+ -------+ *Each stage assumes the associated GFR level has been in effect for at least three months. ?Stages 1 to 5, with or without kidney disease, indicate chronic kidney disease. Notes: Determination of stages one and two (with eGFR >59mL/min/1.73 m2) requires estimation of kidney damage for at least three months as defined by structural or functional abnormalities of the kidney, manifested by either:Pathological abnormalities or Markers of kidney damage (including abnormalities in the composition of the blood or urine or abnormalities in imaging tests). Lab Interpretation (test code = 47932-4) [facility] Test Item Value Reference Range Interpretation Comme nts MAGNESIUM (test code = 5082203114) 2.7 mg/dL 1.7-2.4 H Lab Interpretation (test cod e = 53425-2) [facility]normal [facility]PH[facility]2021[facility] 09:40:50* Test Item Value Reference Range Interpretation Comme nts PHOSPHORUS (test code = 3206087846) 4.0 mg/dL 2.5-5.0 Lab Interpretation (test cod e = 17027-9) Normal [facility] CenterCBC WITH [id number] 09:35:26* Test Item Value Reference Range Interpretation Comme nts WBC (test code = 6690-2) See_Comment H [Automated message] The system which generated this result transmitted reference range: 4.30 - 11.10 10*3/?L. The reference range was not used to interpret this result as normal/abnormal. RBC (test code = 789-8) See_Comment [Automated message] The system which generated this result transmitted reference range: 3.93 - 5.25 10*6/?L. The reference range was not used to interpret this result as normal/abnormal. HGB (test code = 718-7) 15.3 g/dL 11.6-15.0 H HCT (test code = 4544-3) 46.6 % 35.7-45.2 H MCV (test code = 787-2) 97.7 fL 80.6-95.5 H MCH (test code = 785-6) 32.1 pg 25.9-32.8 MCHC (test code = 786-4) 32.8 g/dL 31.6-35.1 RDW-SD (test code = 89162-5) 46.6 fL 39.0-49.9 RDW-CV (test code = 788-0) 13.1 % 12.0-15.5 PLT (test code = 777-3) See_Comment [Automated message] The system which generated this result transmitted reference range: 166 - 358 10*3/?L. The reference range was not used to interpret this result as normal/abnormal. MPV (test code = 58787-6) 10.4 fL 9.5-12.9 NRBC/100 WBC (test code = 2950202371) See_Comment [Automated message] The system which generated this result transmitted reference range: 0.0 - 10.0 /100 WBCs. The reference range was not used to interpret this result as normal/abnormal. NRBC x10^3 (test code = 0264504981) <0.01 See_Comment [Automated message] The system which generated this result transmitted reference range: 10*3/?L. The reference range was not used to interpret this result as normal/abnormal. GRAN MAT (NEUT) % (test code = 770-8) 93.6 % IMM GRAN % (test code = 8943608397) 0.90 % LYMPH % (test code = 736-9) 4.1 % MONO % (test code = 5905-5) 1.3 % EOS % (test code = 713-8) 0.0 % BASO % (test code = 706-2) 0.1 % GRAN MAT x10^3(ANC) (test code = 1193785557) 18.03 10*3/uL 1.88-7.09 H IMM GRAN x10^3 (test code = 5644003678) 0.17 10*3/uL 0.00-0.06 H LYMPH x10^3 (test code = 731-0) 0.79 10*3/uL 1.32-3.29 L MONO x10^3 (test code = 742-7) 0.25 10*3/uL 0.33-0.92 L EOS x10^3 (test code = 711-2) <0.03 0.03-0.39 L BASO x10^3 (test code = 704-7) <0.03 0.01-0.07 Lab Interpretation (test code = 09759-2) [facility]normal [facility] CenterD-MZHPW2533-03-08 09:07:02* Test Item Value Reference Range Interpretation Comments D-DIMER (test code = 1215135597) See_Comment [Automated message] The system which generated this result transmitted reference range: <0.50 ?g/mL (FEU). The reference range was not used to interpret this result as normal/abnormal. RONNIE (test code = RONNIE) This test may be used in conjunction with a clinical pretest probability (PTP) assessment model to exclude venous thromboembolism (VTE) in patients suspected of deep venous thrombosis (DVT) and pulmonary embolism (PE) A D-Dimer value less than 0.50 ?g/ml (FEU) has a negative predicative value of 96 to 100% (95% CI)and 97 to 100% (95% CI) as an aid in the diagnosis of deep vein thrombosis (DVT) and pulmonary embolism when there is low or moderate pretest probability of PE or DVT. D-Dimer values are expressed in initial fibrinogen equivalent units (FEU)" The assay results should be used with other information, including the clinical context, in forming a diagnosis. Lab Interpretation (test code = 02314-1) Normal [facility] CenterLactic Acid Whole [id number] 08:54:17* Test Item Value Reference Range Interpretation Comme nts LACTIC ACID (test code = 0378214766) 1.75 mmol/L 0.50-2.20 Lab Interpretation (test cod e = 05490-9) Normal [facility] [id number] 05:21:53* Test Item Value Reference Range Interpretation Comments TROPONIN I (test code = 6777215400) 0.028 ng/mL See_Comment [Automated message] The system which generated this result transmitted reference range: <=0.034. The reference range was not used to interpret this result as normal/abnormal. RONNIE (test code = RONNIE) Reference (Normal) Range (defined by the 99th percentile reference limit): <= 0.034 ng/mL Note: Cardiac troponin begins to rise 3-4 hours after the onset of ischemia. Repeat in 4-6 hours if the sample was drawn within 3-4 hours of the onset of the symptom and found normal. Diagnosis of myocardial injury is made with acute changes in cTn concentrations with at least one serial sample above the 99th percentile upper reference limit (URL), taken together with the patient's clinical presentation. Biotin has been reported to cause a negative bias, interpret results relative to patient's use of biotin. Lab Interpretation (test code = 51039-0) Normal [facility] [id number] 02:42:59* Test Item Value Reference Range Interpretation Comments TROPONIN I (test code = 5485004648) 0.002 ng/mL See_Comment [Automated message] The system which generated this result transmitted reference range: <=0.034. The reference range was not used to interpret this result as normal/abnormal. RONNIE (test code = RONNIE) Reference (Normal) Range (defined by the 99th percentile reference limit): <= 0.034 ng/mL Note: Cardiac troponin begins to rise 3-4 hours after the onset of ischemia. Repeat in 4-6 hours if the sample was drawn within 3-4 hours of the onset of the symptom and found normal. Diagnosis of myocardial injury is made with acute changes in cTn concentrations with at least one serial sample above the 99th percentile upper reference limit (URL), taken together with the patient's clinical presentation. Biotin has been reported to cause a negative bias, interpret results relative to patient's use of biotin. Lab Interpretation (test code = 45887-4) Normal [facility] CenterN-TERMINAL [id number] 02:40:58* Test Item Value Reference Range Interpretation Comme nts NT-proBNP (test code = 6477602313) 334 pg/mL See_Comment H [Automated message] The system which generated this result transmitted reference range: <=125. The reference range was not used to interpret this result as normal/abnormal. RONNIE (test code = RONNIE) Biotin has been reported to cause a negative bias, interpret results relative to patient's use of biotin. Lab Interpretation (test code = 54128-0) Abnormal [facility]. METABOLIC PANEL (30551)2021-07-16 02:32:20* Test Item Value Reference Range Interpretation Comme nts NA (test code = 9838433270) 138 mmol/L 135-145 K (test code = 0180107570) 3.7 mmol/L 3.5-5.0 CL (test code = 4028953001) 102 mmol/L 98-108 CO2 TOTAL (test code = 4586138232) 28 mmol/L 23-31 AGAP (test code = 7511230999) 2-16 BUN (test code = 6088130532) 12 mg/dL 7-23 GLUCOSE (test code = 9034177439) 122 mg/dL 70-110 H CREATININE (test code = 1165280577) 0.82 mg/dL 0.50-1.04 TOTAL BILI (test code = 1132688608) 0.6 mg/dL 0.1-1.1 CALCIUM (test code = 3731111961) 9.8 mg/dL 8.6-10.6 T PROTEIN (test code = 0096225310) 7.4 g/dL 6.3-8.2 ALBUMIN (test code = 4450325629) 4.2 g/dL 3.5-5.0 ALK PHOS (test code = 7441112760) 82 U/L 34-122 ALTv (test code = 1742-6) 32 U/L 5-35 AST(SGOT) (test code = 0822374558) 28 U/L 13-40 eGFR (test code = 7116388186) mL/min/1.73m2 RONNIE (test code = RONNIE) Association of Glomerular Filtration Rate (GFR) and Staging of Kidney Disease* + --+ --+ ------+| GFR (mL/min/1.73 m2) ?| With Kidney Damage ?| ?Without Kidney Damage+ --------+ --------+ +| ?>90 ?| ?Stage one ?| ? Normal ?+ ---+ ---+ -------+| ?60-89 ?| ?Stage two ?| ? Decreased GFR ? + --+ --+ ------+| ?30-59 ?| ?Stage three ?| ? Stage three ? + --+ --+ ------+| ?15-29 ?| ?Stage four ? | ? Stage four ?+ ---+ ---+ -------+| ?<15 (or dialysis) ? ?| ?Stage five ? | ? Stage five ?+ ---+ ---+ -------+ *Each stage assumes the associated GFR level has been in effect for at least three months. ?Stages 1 to 5, with or without kidney disease, indicate chronic kidney disease. Notes: Determination of stages one and two (with eGFR >59mL/min/1.73 m2) requires estimation of kidney damage for at least three months as defined by structural or functional abnormalities of the kidney, manifested by either:Pathological abnormalities or Markers of kidney damage (including abnormalities in the composition of the blood or urine or abnormalities in imaging tests). Lab Interpretation (test code = 32969-1) [facility] 02:32:20* Test Item Value Reference Range Interpretation Comme nts MAGNESIUM (test code = 0382837238) 2.1 mg/dL 1.7-2.4 Lab Interpretation (test cod e = 19592-7) [facility] CenterLIP[facility], [id number] 02:31:40* Test Item Value Reference Range Interpretation Comme [facility] LIPASE (test code = 1940330243) 27 U/L 0-220 Lab Interpretation (test cod e = 82103-8) [facility]eraPTT[facility] 02:29:59* Test Item Value Reference Range Interpretation Comme [facility] APTT Patient (test code = 3173-2) See_Comment [Automated message] The system which generated this result transmitted reference range: 23 - 38 Seconds. The reference range was not used to interpret this result as normal/abnormal. RONNIE (test code = RONNIE) The [facility] patient population mean normal value for aPTT is 30 seconds. Lab Interpretation (test code = 98670-3) [facility] [id number] 02:26:59* Test Item Value Reference Range Interpretation Comme [facility] PROTIME PATIENT (test code = 5964-2) See_Comment [Automated [employer] ge] The system which generated this result transmitted reference range: 12.0 - 14.7 Seconds. The reference range was not used to interpret this result as normal/abnormal. INR (test code = 6301-6) Normal INR <1.1; Warfarin Therapeutic range 2.0 to 3.0 or 2.5 to 3.5, depending upon the indications. Lab Interpretation (test code = 34640-7) [facility] + LACTIC [id number] 02:16:11* Test Item Value Reference Range Interpretation Comme [facility] PH (test code = 9788825816) 7.32-7.42 PCO2 BETTY (test code = 8048933701) See_Comment [Automated [employer]] The system which generated this result transmitted reference range: 41 - 51 mmHg. The reference range was not used to interpret this result as normal/abnormal. PO2 BETTY (test code = 6271015243) See_Comment [Automated [employer]] The system which generated this result transmitted reference range: 25 - 40 mmHg. The reference range was not used to interpret this result as normal/abnormal. HCO3 BETTY (test code = 4917097401) See_Comment [Automated messa ge] The system which generated this result transmitted reference range: 24 - 28 mEq/L. The reference range was not used to interpret this result as normal/abnormal. AC VBE(BEAKER) (test code = 5287846670) mEq/L THB BETTY (test code = 4420190476) 16.7 g/dL 12.0-16.0 H %O2HB BETTY (test code = 6072654950) 59.0 % 52.0-63.0 %COHB BETTY (test code = 1282040901) 5.6 % 0.0-1.5 H %METHB BETTY (test code = 8682506961) 0.3 % 0.4-1.5 L VOL%O2 BETTY (test code = 0087484582) 13.8 % 6.0-12.0 H NA (test code = 9574547620) 139 mmol/L 135-145 K+ (test code = 3681930047) 3.8 mmol/L 3.5-5.0 AC CA IONZ (test code = 4204571912) 4.80 mg/dL 4.50-5.30 GLUCOSE (test code = 5951381102) 106 mg/dL 70-110 LACTIC ACID (test code = 7332134799) 1.18 mmol/L 0.50-2.20 Lab Interpretation (test code = 49974-9) Abnormal [facility] WITH [id number] 02:16:01* Test Item Value Reference Range Interpretation Comme nts WBC (test code = 6690-2) See_Comment H [Automated message] The system which generated this result transmitted reference range: 4.30 - 11.10 10*3/?L. The reference range was not used to interpret this result as normal/abnormal. RBC (test code = 789-8) See_Comment [Automated message] The system which generated this result transmitted reference range: 3.93 - 5.25 10*6/?L. The reference range was not used to interpret this result as normal/abnormal. HGB (test code = 718-7) 16.1 g/dL 11.6-15.0 H HCT (test code = 4544-3) 48.5 % 35.7-45.2 H MCV (test code = 787-2) 97.6 fL 80.6-95.5 H MCH (test code = 785-6) 32.4 pg 25.9-32.8 MCHC (test code = 786-4) 33.2 g/dL 31.6-35.1 RDW-SD (test code = 06331-8) 46.4 fL 39.0-49.9 RDW-CV (test code = 788-0) 13.1 % 12.0-15.5 PLT (test code = 777-3) See_Comment [Automated message] The system which generated this result transmitted reference range: 166 - 358 10*3/?L. The reference range was not used to interpret this result as normal/abnormal. MPV (test code = 86081-7) 10.5 fL 9.5-12.9 NRBC/100 WBC (test code = 9196045600) See_Comment [Automated message] The system which generated this result transmitted reference range: 0.0 - 10.0 /100 WBCs. The reference range was not used to interpret this result as normal/abnormal. NRBC x10^3 (test code = 3967858194) <0.01 See_Comment [Automated message] The system which generated this result transmitted reference range: 10*3/?L. The reference range was not used to interpret this result as normal/abnormal. GRAN MAT (NEUT) % (test code = 770-8) 73.9 % IMM GRAN % (test code = 2845496839) 0.60 % LYMPH % (test code = 736-9) 19.2 % MONO % (test code = 5905-5) 6.0 % EOS % (test code = 713-8) 0.0 % BASO % (test code = 706-2) 0.3 % GRAN MAT x10^3(ANC) (test code = 4681951531) 12.89 10*3/uL 1.88-7.09 H IMM GRAN x10^3 (test code = 5027494439) 0.11 10*3/uL 0.00-0.06 H LYMPH x10^3 (test code = 731-0) 3.36 10*3/uL 1.32-3.29 H MONO x10^3 (test code = 742-7) 1.05 10*3/uL 0.33-0.92 H EOS x10^3 (test code = 711-2) <0.03 0.03-0.39 L BASO x10^3 (test code = 704-7) 0.05 10*3/uL 0.01-0.07 Lab Interpretation (test code = 92796-9) Abnormal [facility] [id number] 06:58:35* Test Item Value Reference Range Interpretation Comments TROPONIN I (test code = 7314404595) 0.000 ng/mL See_Comment [Automated message] The system which generated this result transmitted reference range: <=0.034. The reference range was not used to interpret this result as normal/abnormal. RONNIE (test code = RONNIE) Reference (Normal) Range (defined by the 99th percentile reference limit): <= 0.034 ng/mL Note: Cardiac troponin begins to rise 3-4 hours after the onset of ischemia. Repeat in 4-6 hours if the sample was drawn within 3-4 hours of the onset of the symptom and found normal. Diagnosis of myocardial injury is made with acute changes in cTn concentrations with at least one serial sample above the 99th percentile upper reference limit (URL), taken together with the patient's clinical presentation. Biotin has been reported to cause a negative bias, interpret results relative to patient's use of biotin. Lab Interpretation (test code = 08264-8) Normal [facility] [id number] 06:58:35* Test Item Value Reference Range Interpretation Comments TROPONIN I (test code = 0995850094) 0.000 ng/mL See_Comment [Automated message] The system which generated this result transmitted reference range: <=0.034. The reference range was not used to interpret this result as normal/abnormal. RONNIE (test code = RONNEI) Reference (Normal) Range (defined by the 99th percentile reference limit): <= 0.034 ng/mL Note: Cardiac troponin begins to rise 3-4 hours after the onset of ischemia. Repeat in 4-6 hours if the sample was drawn within 3-4 hours of the onset of the symptom and found normal. Diagnosis of myocardial injury is made with acute changes in cTn concentrations with at least one serial sample above the 99th percentile upper reference limit (URL), taken together with the patient's clinical presentation. Biotin has been reported to cause a negative bias, interpret results relative to patient's use of biotin. Lab Interpretation (test code = 42912-4) [facility] [id number] 04:04:05* Test Item Value Reference Range Interpretation Comme nts APTT Patient (test code = 3173-2) See_Comment [Automated message] The system which generated this result transmitted reference range: 23 - 38 Seconds. The reference range was not used to interpret this result as normal/abnormal. RONNIE (test code = RONNIE) The [facility] patient population mean normal value for aPTT is 30 seconds. Lab Interpretation (test code = 75645-6) [facility] [id number] 04:04:05* Test Item Value Reference Range Interpretation Comme nts APTT Patient (test code = 3173-2) See_Comment [Automated message] The system which generated this result transmitted reference range: 23 - 38 Seconds. The reference range was not used to interpret this result as normal/abnormal. RONNIE (test code = RONNIE) The [facility] patient population mean normal value for aPTT is 30 seconds. Lab Interpretation (test code = 47641-0) [facility] [id number] 04:01:46* Test Item Value Reference Range Interpretation Comme nts NT-proBNP (test code = 5901371975) 212 pg/mL See_Comment H [Automated message] The system which generated this result transmitted reference range: <=125. The reference range was not used to interpret this result as normal/abnormal. RONNIE (test code = RONNIE) Biotin has been reported to cause a negative bias, interpret results relative to patient's use of biotin. Lab Interpretation (test code = 79062-1) [facility] [id number] 04:01:46* Test Item Value Reference Range Interpretation Comme nts NT-proBNP (test code = 7055975537) 212 pg/mL See_Comment H [Automated message] The system which generated this result transmitted reference range: <=125. The reference range was not used to interpret this result as normal/abnormal. RONNIE (test code = RONNIE) Biotin has been reported to cause a negative bias, interpret results relative to patient's use of biotin. Lab Interpretation (test code = 16975-6) [facility] / [id number] 04:01:45* Test Item Value Reference Range Interpretation Comme [facility] PROTIME PATIENT (test code = 5964-2) See_Comment [Automated F[employer]] The system which generated this result transmitted reference range: 12.0 - 14.7 Seconds. The reference range was not used to interpret this result as normal/abnormal. INR (test code = 6301-6) Normal INR <1.1; Warfarin Therapeutic range 2.0 to 3.0 or 2.5 to 3.5, depending upon the indications. Lab Interpretation (test code = 33575-6) [facility] / [id number] 04:01:45* Test Item Value Reference Range Interpretation Comme [facility] PROTIME PATIENT (test code = 5964-2) See_Comment [Automated [employer]] The system which generated this result transmitted reference range: 12.0 - 14.7 Seconds. The reference range was not used to interpret this result as normal/abnormal. INR (test code = 6301-6) Normal INR <1.1; Warfarin Therapeutic range 2.0 to 3.0 or 2.5 to 3.5, depending upon the indications. Lab Interpretation (test code = 21182-6) [facility] [id number] 04:01:25* Test Item Value Reference Range Interpretation Comments TROPONIN I (test code = 1660870771) 0.000 ng/mL See_Comment [Automated message] The system which generated this result transmitted reference range: <=0.034. The reference range was not used to interpret this result as normal/abnormal. RONNIE (test code = RONNIE) Reference (Normal) Range (defined by the 99th percentile reference limit): <= 0.034 ng/mL Note: Cardiac troponin begins to rise 3-4 hours after the onset of ischemia. Repeat in 4-6 hours if the sample was drawn within 3-4 hours of the onset of the symptom and found normal. Diagnosis of myocardial injury is made with acute changes in cTn concentrations with at least one serial sample above the 99th percentile upper reference limit (URL), taken together with the patient's clinical presentation. Biotin has been reported to cause a negative bias, interpret results relative to patient's use of biotin. Lab Interpretation (test code = 03972-3) [facility] [id number] 04:01:25* Test Item Value Reference Range Interpretation Comments TROPONIN I (test code = 4997530490) 0.000 ng/mL See_Comment [Automated message] The system which generated this result transmitted reference range: <=0.034. The reference range was not used to interpret this result as normal/abnormal. RONNIE (test code = RONNIE) Reference (Normal) Range (defined by the 99th percentile reference limit): <= 0.034 ng/mL Note: Cardiac troponin begins to rise 3-4 hours after the onset of ischemia. Repeat in 4-6 hours if the sample was drawn within 3-4 hours of the onset of the symptom and found normal. Diagnosis of myocardial injury is made with acute changes in cTn concentrations with at least one serial sample above the 99th percentile upper reference limit (URL), taken together with the patient's clinical presentation. Biotin has been reported to cause a negative bias, interpret results relative to patient's use of biotin. Lab Interpretation (test code = 69412-0) Normal [facility]. METABOLIC PANEL (62382)2021-07-09 03:52:45* Test Item Value Reference Range Interpretation Comme nts NA (test code = 6067177672) 139 mmol/L 135-145 K (test code = 8857401952) 4.0 mmol/L 3.5-5.0 CL (test code = 3930601286) 106 mmol/L 98-108 CO2 TOTAL (test code = 0253889174) 28 mmol/L 23-31 AGAP (test code = 9950117466) 2-16 BUN (test code = 4428566108) 11 mg/dL 7-23 GLUCOSE (test code = 7970987937) 103 mg/dL 70-110 CREATININE (test code = 4614718222) 0.81 mg/dL 0.50-1.04 TOTAL BILI (test code = 8250379597) 0.5 mg/dL 0.1-1.1 CALCIUM (test code = 0289210157) 9.7 mg/dL 8.6-10.6 T PROTEIN (test code = 7952633952) 6.9 g/dL 6.3-8.2 ALBUMIN (test code = 6441245029) 3.9 g/dL 3.5-5.0 ALK PHOS (test code = 2925158906) 82 U/L 34-122 ALTv (test code = 1742-6) 15 U/L 5-35 AST(SGOT) (test code = 6983303207) 21 U/L 13-40 eGFR (test code = 6489288113) mL/min/1.73m2 RONNIE (test code = RONNIE) Association of Glomerular Filtration Rate (GFR) and Staging of Kidney Disease* + + +- +| GFR (mL/min/1.73 m2) ?| With Kidney Damage ?| ?Without Kidney Damage+ ------+ ----+ ------+| ?>90 ?| ?Stage one ?| ? Normal ?+ -+ + -+| ?60-89 ?| ?Stage two ?| ? Decreased GFR ? + + +- +| ?30-59 ?| ?Stage three ?| ? Stage three ? + + +- +| ?15-29 ?| ?Stage four ? | ? Stage four ?+ -+ + -+| ?<15 (or dialysis) ? ?| ?Stage five ? | ? Stage five ?+ -+ + -+ *Each stage assumes the associated GFR level has been in effect for at least three months. ?Stages 1 to 5, with or without kidney disease, indicate chronic kidney disease. Notes: Determination of stages one and two (with eGFR >59mL/min/1.73 m2) requires estimation of kidney damage for at least three months as defined by structural or functional abnormalities of the kidney, manifested by either:Pathological abnormalities or Markers of kidney damage (including abnormalities in the composition of the blood or urine or abnormalities in imaging tests). [facility]. METABOLIC PANEL (62378)2021-07-09 03:52:45* Test Item Value Reference Range Interpretation Comme nts NA (test code = 1998061660) 139 mmol/L 135-145 K (test code = 5563666661) 4.0 mmol/L 3.5-5.0 CL (test code = 9227504032) 106 mmol/L 98-108 CO2 TOTAL (test code = 4545154182) 28 mmol/L 23-31 AGAP (test code = 6748449019) 2-16 BUN (test code = 2006405340) 11 mg/dL 7-23 GLUCOSE (test code = 6227803223) 103 mg/dL 70-110 CREATININE (test code = 4122192048) 0.81 mg/dL 0.50-1.04 TOTAL BILI (test code = 7764817434) 0.5 mg/dL 0.1-1.1 CALCIUM (test code = 3478440589) 9.7 mg/dL 8.6-10.6 T PROTEIN (test code = 8772528351) 6.9 g/dL 6.3-8.2 ALBUMIN (test code = 8062611708) 3.9 g/dL 3.5-5.0 ALK PHOS (test code = 8303632874) 82 U/L 34-122 ALTv (test code = 1742-6) 15 U/L 5-35 AST(SGOT) (test code = 6803076715) 21 U/L 13-40 eGFR (test code = 6694541524) mL/min/1.73m2 RONNIE (test code = RONINE) Association of Glomerular Filtration Rate (GFR) and Staging of Kidney Disease* + + +- +| GFR (mL/min/1.73 m2) ?| With Kidney Damage ?| ?Without Kidney Damage+ ------+ ----+ ------+| ?>90 ?| ?Stage one ?| ? Normal ?+ -+ + -+| ?60-89 ?| ?Stage two ?| ? Decreased GFR ? + + +- +| ?30-59 ?| ?Stage three ?| ? Stage three ? + + +- +| ?15-29 ?| ?Stage four ? | ? Stage four ?+ -+ + -+| ?<15 (or dialysis) ? ?| ?Stage five ? | ? Stage five ?+ -+ + -+ *Each stage assumes the associated GFR level has been in effect for at least three months. ?Stages 1 to 5, with or without kidney disease, indicate chronic kidney disease. Notes: Determination of stages one and two (with eGFR >59mL/min/1.73 m2) requires estimation of kidney damage for at least three months as defined by structural or functional abnormalities of the kidney, manifested by either:Pathological abnormalities or Markers of kidney damage (including abnormalities in the composition of the blood or urine or abnormalities in imaging tests). [facility]05* Test Item Value Reference Range Interpretation Comme nts LIPASE (test code = 2454898082) 38 U/L 0-220 Lab Interpretation (test cod e = 65301-6) [facility] 03:52:05* Test Item Value Reference Range Interpretation Comme nts LIPASE (test code = 2338465484) 38 U/L 0-220 Lab Interpretation (test cod e = 46261-1) [facility] WITH [id number] 03:28:23* Test Item Value Reference Range Interpretation Comme nts WBC (test code = 6690-2) See_Comment [Automated [employer]] The system which generated this result transmitted reference range: 4.30 - 11.10 10*3/?L. The reference range was not used to interpret this result as normal/abnormal. RBC (test code = 789-8) See_Comment [Automated [employer]] The system which generated this result transmitted reference range: 3.93 - 5.25 10*6/?L. The reference range was not used to interpret this result as normal/abnormal. HGB (test code = 718-7) 15.2 g/dL 11.6-15.0 H HCT (test code = 4544-3) 45.3 % 35.7-45.2 H MCV (test code = 787-2) 97.6 fL 80.6-95.5 H MCH (test code = 785-6) 32.8 pg 25.9-32.8 MCHC (test code = 786-4) 33.6 g/dL 31.6-35.1 RDW-SD (test code = 98345-8) 46.5 fL 39.0-49.9 RDW-CV (test code = 788-0) 12.9 % 12.0-15.5 PLT (test code = 777-3) See_Comment [Automated [employer]] The system which generated this result transmitted reference range: 166 - 358 10*3/?L. The reference range was not used to interpret this result as normal/abnormal. MPV (test code = 94120-7) 10.8 fL 9.5-12.9 NRBC/100 WBC (test code = 4752699654) See_Comment [Automated [employer] ssage] The system which generated this result transmitted reference range: 0.0 - 10.0 /100 WBCs. The reference range was not used to interpret this result as normal/abnormal. NRBC x10^3 (test code = 0324325249) <0.01 See_Comment [Automated [employer]] The system which generated this result transmitted reference range: 10*3/?L. The reference range was not used to interpret this result as normal/abnormal. GRAN MAT (NEUT) % (test code = 770-8) 55.0 % IMM GRAN % (test code = 4353678965) 0.30 % LYMPH % (test code = 736-9) 39.2 % MONO % (test code = 5905-5) 5.0 % EOS % (test code = 713-8) 0.0 % BASO % (test code = 706-2) 0.5 % GRAN MAT x10^3(ANC) (test code = 8766796934) 5.19 10*3/uL 1.88-7.09 IMM GRAN x10^3 (test code = 8572520584) 0.03 10*3/uL 0.00-0.06 LYMPH x10^3 (test code = 731-0) 3.70 10*3/uL 1.32-3.29 H MONO x10^3 (test code = 742-7) 0.47 10*3/uL 0.33-0.92 EOS x10^3 (test code = 711-2) <0.03 0.03-0.39 L BASO x10^3 (test code = 704-7) 0.05 10*3/uL 0.01-0.07 Lab Interpretation (test code = 31005-2) Abnormal [facility] WITH [id number] 03:28:23* Test Item Value Reference Range Interpretation Comme nts WBC (test code = 6690-2) See_Comment [Automated messa ge] The system which generated this result transmitted reference range: 4.30 - 11.10 10*3/?L. The reference range was not used to interpret this result as normal/abnormal. RBC (test code = 789-8) See_Comment [Automated messa ge] The system which generated this result transmitted reference range: 3.93 - 5.25 10*6/?L. The reference range was not used to interpret this result as normal/abnormal. HGB (test code = 718-7) 15.2 g/dL 11.6-15.0 H HCT (test code = 4544-3) 45.3 % 35.7-45.2 H MCV (test code = 787-2) 97.6 fL 80.6-95.5 H MCH (test code = 785-6) 32.8 pg 25.9-32.8 MCHC (test code = 786-4) 33.6 g/dL 31.6-35.1 RDW-SD (test code = 16669-5) 46.5 fL 39.0-49.9 RDW-CV (test code = 788-0) 12.9 % 12.0-15.5 PLT (test code = 777-3) See_Comment [Automated messa ge] The system which generated this result transmitted reference range: 166 - 358 10*3/?L. The reference range was not used to interpret this result as normal/abnormal. MPV (test code = 03513-3) 10.8 fL 9.5-12.9 NRBC/100 WBC (test code = 7706911677) See_Comment [Automated [employer] ssage] The system which generated this result transmitted reference range: 0.0 - 10.0 /100 WBCs. The reference range was not used to interpret this result as normal/abnormal. NRBC x10^3 (test code = 0996343299) <0.01 See_Comment [Automated messa ge] The system which generated this result transmitted reference range: 10*3/?L. The reference range was not used to interpret this result as normal/abnormal. GRAN MAT (NEUT) % (test code = 770-8) 55.0 % IMM GRAN % (test code = 9704582732) 0.30 % LYMPH % (test code = 736-9) 39.2 % MONO % (test code = 5905-5) 5.0 % EOS % (test code = 713-8) 0.0 % BASO % (test code = 706-2) 0.5 % GRAN MAT x10^3(ANC) (test code = 7257399649) 5.19 10*3/uL 1.88-7.09 IMM GRAN x10^3 (test code = 3460891839) 0.03 10*3/uL 0.00-0.06 LYMPH x10^3 (test code = 731-0) 3.70 10*3/uL 1.32-3.29 H MONO x10^3 (test code = 742-7) 0.47 10*3/uL 0.33-0.92 EOS x10^3 (test code = 711-2) <0.03 0.03-0.39 L BASO x10^3 (test code = 704-7) 0.05 10*3/uL 0.01-0.07 Lab Interpretation (test code = 93169-7) [facility]56:00* Test Item Value Reference Range Interpretation Comme nts APPEARANCE (test code = 1979676363) Clear Clear COLOR (test code = 5673369168) Yellow Yellow PH (test code = 1313684339) 4.8-8.0 SP GRAVITY (test code = 7943189970) 1.003-1.030 GLU U QUAL (test code = 4859934584) Normal Normal BLOOD (test code = 7356817514) 1+ Negative A KETONES (test code = 7551480590) Negative Negative PROTEIN (test code = 2887-8) Negative Negative UROBILIN (test code = 5119806645) Normal Normal BILIRUBIN (test code = 9701392461) Negative Negative NITRITE (test code = 6390196516) Negative Negative LEUK DANDY (test code = 6966037101) Negative Negative RBC/HPF (test code = 6504510921) See_Comment [Automated messa ge] The system which generated this result transmitted reference range: 0 - 3 HPF. The reference range was not used to interpret this result as normal/abnormal. WBC/HPF (test code = 1132666794) See_Comment [Automated F[employer]] The system which generated this result transmitted reference range: 0 - 5 HPF. The reference range was not used to interpret this result as normal/abnormal. BACTERIA (test code = 5400455301) Negative Negative MUCOUS (test code = 3464713770) Slight Negative LPF A SQ EPITH (test code = 0662768434) HPF Lab Interpretation (test code = 22376-2) [facility] RAPID TESTING[facility]2020-11-01 19:23:00* Test Item Value Reference Range Interpretation Comme nts SARS-CoV-2 Rapid ID NOW (test code = 88113-8) Not Detected Not Detected RONNIE (test code = RONNIE) ID NOW COVID-19 As say is an isothermal nucleic acid amplification test intended for the qualitative detection of nucleic acid from SARS-CoV-2 viral RNA in nasopharyngeal (ARBORER) specimens. It is used under Emergency Use Authorization (EUA) by FDA. The limit of detection (LOD) of the assay is 125 Genome Equivalents/mL. A positive result is indicative of the presence of SARS-CoV-2 RNA. ?Clinical correlation with patient history and other diagnostic information is necessary to determine patient infection status. A negative (Not Detected) result does not preclude SARS-CoV-2 infection. In patients with clinical symptoms and other tests that are consistent with SARS-CoV-2 infection, negative results should be treated as presumptive negative and a new specimen should be tested with alternative PCR molecular test. Invalid: Please collect a new specimen for repeat patient testing if clinically indicated. Lab Interpretation (test code = 59501-5) [facility] [id number] 19:05:00* Test Item Value Reference Range Interpretation Comme nts TROPONIN I (test code = 0983714085) <0.012 See_Comment [Automated message] The system which generated this result transmitted reference range: <=0.034 ng/mL. The reference range was not used to interpret this result as normal/abnormal. RONNIE (test code = RONNIE) Equal or Less than 0.034 ng/ml---Normal ?Note: Cardiac troponin begins to rise 3-4 hours after the onset of ischemia. Repeat in 4-6 hours if the sample was drawn within 3-4 hours of the onset of the symptom and found normal. Between 0.035 and 0.120 ng/mL--- Borderline. Questionable myocardial injury or necrosis ? ?Note: Serial measurement may be necessary to confirm or exclude the diagnosis of myocardial injury or necrosis; Clinical correlation (symptoms, EKGs, imaging studies, and others) required; Repeat in 4-6 hours if clinically indicated. ? Equal or Higher than 0.121 ng/mL---Abnormal. Myocardial Injury or Necrosis Likely ? Biotin has been reported to cause a negative bias, interpret results relative to patient's use of biotin. ? Lab Interpretation (test code = 88098-6) [id number] 19:02:00* Test Item Value Reference Range Interpretation Comme nts NT-proBNP (test code = 3289211666) 21 pg/mL See_Comment [Automated message] The system which generated this result transmitted reference range: <=125. The reference range was not used to interpret this result as normal/abnormal. RONNIE (test code = RONNIE) Biotin has been reported to cause a negative bias, interpret results relative to patient's use of biotin. Lab Interpretation (test code = 00159-6) [facility] 18:54:00* Test Item Value Reference Range Interpretation Comme nts MAGNESIUM (test code = 3229483907) 2.2 mg/dL 1.7-2.4 Lab Interpretation (test cod e = 93811-2) [facility]OL[facility] (72906)2020-11-01 18:53:00* Test Item Value Reference Range Interpretation Comme nts NA (test code = 5044881305) 140 mmol/L 135-145 K (test code = 7369331063) 4.5 mmol/L 3.5-5 CL (test code = 4148608900) 106 mmol/L 98-108 CO2 TOTAL (test code = 4194344457) 27 mmol/L 23-31 AGAP (test code = 3984146932) 2-16 BUN (test code = 2880089427) 12 mg/dL 7-23 GLUCOSE (test code = 5772780140) 97 mg/dL 70-110 CREATININE (test code = 8488275087) 0.72 mg/dL 0.5-1.04 TOTAL BILI (test code = 1418187526) 0.5 mg/dL 0.1-1.1 CALCIUM (test code = 2369121137) 9.8 mg/dL 8.6-10.6 T PROTEIN (test code = 3989157607) 7.2 g/dL 6.3-8.2 ALBUMIN (test code = 2777369363) 4.2 g/dL 3.5-5 ALK PHOS (test code = 2695869826) 75 U/L 34-122 ALTv (test code = 1742-6) 17 U/L 5-35 AST(SGOT) (test code = 9976324254) 23 U/L 13-40 eGFR Calculation (Non-) (test code = 0033623616) mL/min/1.73m2 eGFR Calculation () (test code = 8159739155) mL/min/1.73m2 RONNIE (test code = RONNIE) Association of Glomerular Filtration Rate (GFR) and Staging of Kidney Disease* + -+ + ---+| GFR (mL/min/1.73 m2) ?| With Kidney Damage ?| ?Without Kidney Damage+ -------+ ------+ ---------+| ?>90 ?| ?Stage one ?| ? Normal ?+ --+ -+ ----+| ?60-89 ?| ?Stage two ?| ? Decreased GFR ? + -+ + ---+| ?30-59 ?| ?Stage three ?| ? Stage three ? + -+ + ---+| ?15-29 ?| ?Stage four ? | ? Stage four ?+ --+ -+ ----+| ?<15 (or dialysis) ? ?| ?Stage five ? | ? Stage five ?+ --+ -+ ----+ *Each stage assumes the associated GFR level has been in effect for at least three months. ?Stages 1 to 5, with or without kidney disease, indicate chronic kidney disease. Notes: Determination of stages one and two (with eGFR >59mL/min/1.73 m2) requires estimation of kidney damage for at least three months as defined by structural or functional abnormalities of the kidney, manifested by either:Pathological abnormalities or Markers of kidney damage (including abnormalities in the composition of the blood or urine or abnormalities in imaging tests). [id number] 18:42:00* Test Item Value Reference Range Interpretation Comments D-DIMER (test code = 3722026919) See_Comment [Automated message] The system which generated this result transmitted reference range: <0.41 ?g/mL (FEU). The reference range was not used to interpret this result as normal/abnormal. RONNIE (test code = RONNIE) This test may be used in conjunction with a clinical pretest probability (PTP) assessment model to exclude venous thromboembolism (VTE) in patients suspected of deep venous thrombosis (DVT) and pulmonary embolism (PE) A D-Dimer value less than 0.50 ?g/ml (FEU) has a negative predicative value of 96 to 100% (95% CI)and 97 to 100% (95% CI) as an aid in the diagnosis of deep vein thrombosis (DVT) and pulmonary embolism when there is low or moderate pretest probability of PE or DVT. D-Dimer values are expressed in initial fibrinogen equivalent units (FEU)" The assay results should be used with other information, including the clinical context, in forming a diagnosis. Lab Interpretation (test code = 81130-2) [facility] WITH [id number] 18:35:00* Test Item Value Reference Range Interpretation Comme nts WBC (test code = 6690-2) See_Comment [Automated Freenom] The system which generated this result transmitted reference range: 4.30 - 11.10 10*3/?L. The reference range was not used to interpret this result as normal/abnormal. RBC (test code = 789-8) See_Comment H [Automated Freenom] The system which generated this result transmitted reference range: 3.93 - 5.25 10*6/?L. The reference range was not used to interpret this result as normal/abnormal. HGB (test code = 718-7) 16.4 g/dL 11.6-15 H HCT (test code = 4544-3) 50.0 % 35.7-45.2 H MCV (test code = 787-2) 94.5 fL 80.6-95.5 MCH (test code = 785-6) 31.0 pg 25.9-32.8 MCHC (test code = 786-4) 32.8 g/dL 31.6-35.1 RDW-SD (test code = 07083-2) 42.8 fL 39-49.9 RDW-CV (test code = 788-0) 12.2 % 12-15.5 PLT (test code = 777-3) See_Comment [Automated [employer] ge] The system which generated this result transmitted reference range: 166 - 358 10*3/?L. The reference range was not used to interpret this result as normal/abnormal. MPV (test code = 82933-4) 10.8 fL 9.5-12.9 NRBC/100 WBC (test code = 9284379602) See_Comment [Automated Cleverbug ssage] The system which generated this result transmitted reference range: 0.0 - 10.0 /100 WBCs. The reference range was not used to interpret this result as normal/abnormal. NRBC x10^3 (test code = 4577050552) <0.01 See_Comment [Automated [employer] ge] The system which generated this result transmitted reference range: 10*3/?L. The reference range was not used to interpret this result as normal/abnormal. GRAN MAT (NEUT) % (test code = 770-8) 58.0 % IMM GRAN % (test code = 1356702340) 0.50 % LYMPH % (test code = 736-9) 34.7 % MONO % (test code = 5905-5) 6.0 % EOS % (test code = 713-8) 0.0 % BASO % (test code = 706-2) 0.8 % GRAN MAT x10^3(ANC) (test code = 9100525406) 6.28 10*3/uL 1.88-7.09 IMM GRAN x10^3 (test code = 6278318544) 0.05 10*3/uL 0-0.06 LYMPH x10^3 (test code = 731-0) 3.75 10*3/uL 1.32-3.29 H MONO x10^3 (test code = 742-7) 0.65 10*3/uL 0.33-0.92 EOS x10^3 (test code = 711-2) <0.03 0.03-0.39 L BASO x10^3 (test code = 704-7) 0.09 10*3/uL 0.01-0.07 H Lab Interpretation (test code = 02609-9) [facility] 1 [id number] 18:13:35HISTORY: SOB. FINDINGS: ?AP view of the chest showed normal appearance of thecardiomediastinal silhouette. No acute pneumonia, pleural effusion,pulmonary congestion detected. CONCLUSIONS: No radiographic signs of acute cardiopulmonary disease. [facility], Radiant Results Inft User - 11/01/2020 12:14 PM CSTHISTORY: SOB.FINDINGS: AP view of the chest showed normal appearance of thecardiomediastinal silhouette. No acute pneumonia, pleural effusion,pulmonary congestion detected. CONCLUSIONS: No radiographic signs of acute cardiopulmonary disease.[facility] acute hospital GLUCOSE (AUTOMATED)2020-08-21 16:41:00* Test Item Value Reference Range Interpretation Comme [facility] POCT GLU (test code = 7558923633) 152 mg/dL 70-110 H Lab Interpretation (test cod e = 94188-9) Abnormal [facility] hospital GLUCOSE (AUTOMATED)2020-08-21 12:47:00* Test Item Value Reference Range Interpretation Comme [facility] POCT GLU (test code = 2730123129) 98 mg/dL 70-110 Lab Interpretation (test cod e = 98583-9) [facility] F[facility] 2 VW [id number] 11:49:59Soft tissue swelling without acute bony abnormality. Three punctate radiopaque densities in the soft tissue of the long fingeras described are likely bone islands or normal variation in the ?bonytrabeculae. Foreign bodies are less likely. Recommend correlation with thelocation of the fishhook injury. Preliminary Report Dictated by Resident: Carol Best MD., have reviewed this study and agree with the abovereport.EXAM: XR FINGERS 2 VW RIGHT HISTORY: Fish hook injury one week ago, now with swelling, pain COMPARISON: None FINDINGS: Radiographs of the right long finger demonstrate no acute fracture ordislocation. The joint spaces are maintained. Mild soft tissue swellingabout the long finger is noted. Two radiopaque densities project over theP1 segment of the long finger. Additionally, there is a punctate radiopaquedensity over the P2 segment of the long finger. [facility], Radiant Results Inft User - 08/21/2020 6:51 AM CDTEXAM: XR FINGERS 2 VW RIGHTHISTORY: Fish hook injury one week ago, now with swelling, pain COMPARISON: NoneFINDINGS:Radiographs of the right long finger demonstrate no acute fracture ordislocation. The joint spaces are maintained. Mild soft tissue swellingabout the long finger is noted. Two radiopaque densities project over theP1 segment of the long finger. Additionally, there is a punctate radiopaquedensity over the P2 segment of the long finger.IMPRESSIONSoft tissue swelling without acute bony abnormality.Three punctate radiopaque densities in the soft tissue of the long fingeras described are likely bone islands or normal variation in the b onytrabeculae. Foreign bodies are less likely. Recommend correlation with thelocation of the fishhook injury.Preliminary Report Dictated by Resident: Kush Bridges, Carol Saenz MD., have reviewed this study and agree with the abovereport.[facility] with Ejmpcuexqdzx3539-31-63 11:23:00* Test Item Value Reference Range Interpretation Comme nts WBC (test code = 6690-2) See_Comment [Automated Freenom] The system which generated this result transmitted reference range: 4.30 - 11.10 10*3/?L. The reference range was not used to interpret this result as normal/abnormal. RBC (test code = 789-8) See_Comment [Automated [employer]] The system which generated this result transmitted reference range: 3.93 - 5.25 10*6/?L. The reference range was not used to interpret this result as normal/abnormal. HGB (test code = 718-7) 14.0 g/dL 11.6-15 HCT (test code = 4544-3) 42.6 % 35.7-45.2 MCV (test code = 787-2) 96.8 fL 80.6-95.5 H MCH (test code = 785-6) 31.8 pg 25.9-32.8 MCHC (test code = 786-4) 32.9 g/dL 31.6-35.1 RDW-SD (test code = 66828-6) 43.3 fL 39-49.9 RDW-CV (test code = 788-0) 12.0 % 12-15.5 PLT (test code = 777-3) See_Comment [Automated messa ge] The system which generated this result transmitted reference range: 166 - 358 10*3/?L. The reference range was not used to interpret this result as normal/abnormal. MPV (test code = 01011-2) 11.6 fL 9.5-12.9 NRBC/100 WBC (test code = 8620351958) See_Comment [Automated Cleverbug ssage] The system which generated this result transmitted reference range: 0.0 - 10.0 /100 WBCs. The reference range was not used to interpret this result as normal/abnormal. NRBC x10^3 (test code = 7763288170) <0.01 See_Comment [Automated messa ge] The system which generated this result transmitted reference range: 10*3/?L. The reference range was not used to interpret this result as normal/abnormal. GRAN MAT (NEUT) % (test code = 770-8) 43.4 % IMM GRAN % (test code = 6896357274) 0.20 % LYMPH % (test code = 736-9) 48.3 % MONO % (test code = 5905-5) 7.2 % EOS % (test code = 713-8) 0.0 % BASO % (test code = 706-2) 0.9 % GRAN MAT x10^3(ANC) (test code = 9822831270) 3.54 10*3/uL 1.88-7.09 IMM GRAN x10^3 (test code = 9104884079) <0.03 0-0.06 LYMPH x10^3 (test code = 731-0) 3.95 10*3/uL 1.32-3.29 H MONO x10^3 (test code = 742-7) 0.59 10*3/uL 0.33-0.92 EOS x10^3 (test code = 711-2) <0.03 0.03-0.39 L BASO x10^3 (test code = 704-7) 0.07 10*3/uL 0.01-0.07 Lab Interpretation (test code = 18188-6) Abnormal [facility] Metabolic Panel (NA, K, CL, CO2, GLUCOSE, BUN, CREATININE, CA)2020-08-21 10:14:00* Test Item Value Reference Range Interpretation Comme nts NA (test code = 4921497671) 138 mmol/L 135-145 K (test code = 7511863528) 4.1 mmol/L 3.5-5 CL (test code = 1864520289) 104 mmol/L 98-108 CO2 TOTAL (test code = 7194275157) 30 mmol/L 23-31 AGAP (test code = 9009423318) 2-16 BUN (test code = 1547143170) 10 mg/dL 7-23 GLUCOSE (test code = 4113795946) 103 mg/dL 70-110 CREATININE (test code = 2349354821) 0.85 mg/dL 0.5-1.04 CALCIUM (test code = 4083916633) 9.3 mg/dL 8.6-10.6 eGFR Calculation (Non-) (test code = 4656777595) mL/min/1.73m2 eGFR Calculation () (test code = 1961704642) mL/min/1.73m2 RONNIE (test code = RONNIE) Association of Glomerular Filtration Rate (GFR) and Staging of Kidney Disease* + -+ + ---+| GFR (mL/min/1.73 m2) ?| With Kidney Damage ?| ?Without Kidney Damage+ -------+ ------+ ---------+| ?>90 ?| ?Stage one ?| ? Normal ?+ --+ -+ ----+| ?60-89 ?| ?Stage two ?| ? Decreased GFR ? + -+ + ---+| ?30-59 ?| ?Stage three ?| ? Stage three ? + -+ + ---+| ?15-29 ?| ?Stage four ? | ? Stage four ?+ --+ -+ ----+| ?<15 (or dialysis) ? ?| ?Stage five ? | ? Stage five ?+ --+ -+ ----+ *Each stage assumes the associated GFR level has been in effect for at least three months. ?Stages 1 to 5, with or without kidney disease, indicate chronic kidney disease. Notes: Determination of stages one and two (with eGFR >59mL/min/1.73 m2) requires estimation of kidney damage for at least three months as defined by structural or functional abnormalities of the kidney, manifested by either:Pathological abnormalities or Markers of kidney damage (including abnormalities in the composition of the blood or urine or abnormalities in imaging tests). [facility]2020-08-20 21:56:00* Test Item Value Reference Range Interpretation Comme [facility] POCT GLU (test code = 5197217968) 122 mg/dL 70-110 H Lab Interpretation (test cod e = 62843-1) [facility]normal [facility] CenterGLYCOSYLATED HEMOGLOBIN (A1C)2020-08-20 20:24:00* Test Item Value Reference Range Interpretation Comme [facility] HGB A1C (test code = 4548-4) 5.3 % 4-6 RONNIE (test code = RONNIE) %A1C (NGSP) Interpretation (ADA)4.8-5.6 ? ? Normal or (Non-Diabetic Range)5.7-6.4 ? ? Increased Risk (Pre-Diabetic)>6.5 ?Diabetes Indicated Lab Interpretation (test code = 04354-7) [facility] ([facility] NOW RAPID TESTING)2020-08-20 18:44:00* Test Item Value Reference Range Interpretation Comme [facility] SARS-CoV-2 Rapid ID NOW (test code = 92304-1) Not Detected Not Detected RONNIE (test code = RONNIE) ID NOW COVID-19 As say is an isothermal nucleic acid amplification test intended for the qualitative detection of nucleic acid from SARS-CoV-2 viral RNA in nasopharyngeal (ARBORER) specimens. It is used under Emergency Use Authorization (EUA) by FDA. The limit of detection (LOD) of the assay is 125 Genome Equivalents/mL. A positive result is indicative of the presence of SARS-CoV-2 RNA. ?Clinical correlation with patient history and other diagnostic information is necessary to determine patient infection status. A negative (Not Detected) result does not preclude SARS-CoV-2 infection. In patients with clinical symptoms and other tests that are consistent with SARS-CoV-2 infection, negative results should be treated as presumptive negative and a new specimen should be tested with alternative PCR molecular test. Invalid: Please collect a new specimen for repeat patient testing if clinically indicated. Lab Interpretation (test code = 18764-8) Normal [facility] METABOLIC PANEL (NA, K, CL, CO2, GLUCOSE, BUN, CREATININE, CA)2020-08-20 16:54:00* Test Item Value Reference Range Interpretation Comme nts NA (test code = 9802056293) 137 mmol/L 135-145 K (test code = 3836521720) 3.9 mmol/L 3.5-5 CL (test code = 7326501803) 102 mmol/L 98-108 CO2 TOTAL (test code = 8318928538) 25 mmol/L 23-31 AGAP (test code = 7022971049) 2-16 BUN (test code = 3189382708) 8 mg/dL 7-23 GLUCOSE (test code = 0581537243) 201 mg/dL 70-110 H CREATININE (test code = 5157964762) 0.70 mg/dL 0.5-1.04 CALCIUM (test code = 3965562502) 10.5 mg/dL 8.6-10.6 eGFR Calculation (Non-) (test code = 0788230979) mL/min/1.73m2 eGFR Calculation () (test code = 5101817855) mL/min/1.73m2 RONNIE (test code = RONNIE) Association of Glomerular Filtration Rate (GFR) and Staging of Kidney Disease* + --+ --+ ------+| GFR (mL/min/1.73 m2) ?| With Kidney Damage ?| ?Without Kidney Damage+ --------+ --------+ +| ?>90 ?| ?Stage one ?| ? Normal ?+ ---+ ---+ -------+| ?60-89 ?| ?Stage two ?| ? Decreased GFR ? + --+ --+ ------+| ?30-59 ?| ?Stage three ?| ? Stage three ? + --+ --+ ------+| ?15-29 ?| ?Stage four ? | ? Stage four ?+ ---+ ---+ -------+| ?<15 (or dialysis) ? ?| ?Stage five ? | ? Stage five ?+ ---+ ---+ -------+ *Each stage assumes the associated GFR level has been in effect for at least three months. ?Stages 1 to 5, with or without kidney disease, indicate chronic kidney disease. Notes: Determination of stages one and two (with eGFR >59mL/min/1.73 m2) requires estimation of kidney damage for at least three months as defined by structural or functional abnormalities of the kidney, manifested by either:Pathological abnormalities or Markers of kidney damage (including abnormalities in the composition of the blood or urine or abnormalities in imaging tests). Lab Interpretation (test code = 11961-3) Abnormal [facility] WITH [id number] 16:41:00* Test Item Value Reference Range Interpretation Comme nts WBC (test code = 6690-2) See_Comment [Automated Freenom] The system which generated this result transmitted reference range: 4.30 - 11.10 10*3/?L. The reference range was not used to interpret this result as normal/abnormal. RBC (test code = 789-8) See_Comment H [Automated [employer]] The system which generated this result transmitted reference range: 3.93 - 5.25 10*6/?L. The reference range was not used to interpret this result as normal/abnormal. HGB (test code = 718-7) 16.7 g/dL 11.6-15 H HCT (test code = 4544-3) 49.7 % 35.7-45.2 H MCV (test code = 787-2) 94.3 fL 80.6-95.5 MCH (test code = 785-6) 31.7 pg 25.9-32.8 MCHC (test code = 786-4) 33.6 g/dL 31.6-35.1 RDW-SD (test code = 06041-0) 41.4 fL 39-49.9 RDW-CV (test code = 788-0) 11.9 % 12-15.5 L PLT (test code = 777-3) See_Comment [Automated [employer]] The system which generated this result transmitted reference range: 166 - 358 10*3/?L. The reference range was not used to interpret this result as normal/abnormal. MPV (test code = 12866-1) 11.3 fL 9.5-12.9 NRBC/100 WBC (test code = 8716961448) See_Comment [Automated Clever[employer] ssage] The system which generated this result transmitted reference range: 0.0 - 10.0 /100 WBCs. The reference range was not used to interpret this result as normal/abnormal. NRBC x10^3 (test code = 6561877938) <0.01 See_Comment [Automated [employer]] The system which generated this result transmitted reference range: 10*3/?L. The reference range was not used to interpret this result as normal/abnormal. GRAN MAT (NEUT) % (test code = 770-8) 61.1 % IMM GRAN % (test code = 3630711584) 0.20 % LYMPH % (test code = 736-9) 32.7 % MONO % (test code = 5905-5) 5.3 % EOS % (test code = 713-8) 0.0 % BASO % (test code = 706-2) 0.7 % GRAN MAT x10^3(ANC) (test code = 9417219098) 6.20 10*3/uL 1.88-7.09 IMM GRAN x10^3 (test code = 5080593699) <0.03 0-0.06 LYMPH x10^3 (test code = 731-0) 3.32 10*3/uL 1.32-3.29 H MONO x10^3 (test code = 742-7) 0.54 10*3/uL 0.33-0.92 EOS x10^3 (test code = 711-2) <0.03 0.03-0.39 L BASO x10^3 (test code = 704-7) 0.07 10*3/uL 0.01-0.07 Lab Interpretation (test code = 51678-6) [facility] with nfbjetnm3361-28-37 20:50:54 HISTORY: Shortness of breath. TECHNIQUE: Contrast-enhanced 64-mutidetector CT scan of the chest wascompleted with intravenous injection of ?Omnipaque-350 non ionic contrastmedium. Subsequently numerous sagittal, coronal and MIP reformations weregenerated. FINDINGS: 4 mm low-density lesion noted in the lower anterior right lobe ofthe thyroid gland. Trachea and central bronchial airways appear normal. Calcified granulomas is seen in the left lower lung, anterior right upperlobe and medial right upper lobe. Noncalcified 3 mm nodule noted in posterior right upper lobe (8:32) Moderate atherosclerosis noted in the thoracic aorta. No significantcoronary atherosclerosis. No aortic aneurysm or aortic dissection. No acutepulmonary thromboembolism. No enlarged lymph nodes are seen in the levy or themediastinum. Calcifiedlymph nodes are seen in the left perihilar region and right paratrachealregion. No pleural effusion or pericardial effusion. Mid thoracic degenerative spondylosis and trauma with old fracturedeformity noted in T7, T8, T9, T10 and T11 vertebral bodies. Possible smallsliding-type hiatal hernia. CONCLUSIONS: No acute intrathoracic findings. [facility], Radiant Results Inft User - 03/08/2020 3:52 PM CDTHISTORY: Shortness of breath.TECHNIQUE: Contrast-enhanced 64-mutidetector CT scanof the chest wascompleted with intravenous injection of Omnipaque-350 non ionic contrastmedium. Subsequently numerous sagittal, coronal and MIP reformations weregenerated.FINDINGS: 4 mm low-density lesion noted in the lower anterior right lobe ofthe thyroid gland. Trachea and central bronchial airways appear normal.Calcified granulomas is seen in the left lower lung, anterior right upperlobe and medial right upper lobe.Noncalcified 3 mm nodule noted in posterior right upper lobe (8:32)Moderate atherosclerosis noted in the thoracic aorta. No significantcoronary atherosclerosis. No aortic aneurysm or aortic dissection. No acutepulmonary thromboembolism.No enlarged lymph nodes are seen in the levy or the mediastinum. Calcifiedlymph nodes are seen in the left perihilar region and right paratrachealregion. No pleural effusion or pericardial effusion.Mid thoracic degenerative spondylosis and trauma with old fracturedeformity noted in T7, T8, T9, T10 and T11 vertebral bodies. Possible smallsliding-type hiatal hernia.CONCLUSIONS: No acute intrathoracic findings. [facility] with [id number] 20:42:32CT Abdomen and Pelvis with intravenous contrast. CLINICAL HISTORY: Nausea and vomiting. DOSE: Up-to-date CT equipment and radiation dose reduction techniques wereemployed. CTDIvol: 5.65+8.57 mGy. DLP: 198+407 mGy-cm. TECHNIQUE : Contiguous axial imaging from the level of the lung basesthrough the pubic symphysis were performed after the uncomplicatedadministration of Omnipaque contrast material. Coronal and sagittalreconstructions were obtained. Auto mA and/or iterative reconstruction wereused to reduce radiation dose. FINDINGS: ? Lower lungs: Clear. No pleural effusion or pericardial effusion. Nodefinite sign of hiatal hernia. Liver, Gallbladder and Spleen: S/P cholecystectomy. Liver measures 16.8 cmin length and spleen is 12 x 4.7 cm. No focal enhancing lesions detected inthe liver or in the spleen. Biliary ducts and the pancreatic duct appear ofnormal size. Peritoneum: ?No free air or free fluid. No lymphadenopathy. Pancreas and Adrenals: ?Unremarkable pancreas and right adrenal gland. Mildleft adrenal gland hypertrophy. Kidneys and Ureters: ?No visible calculi in the renal collecting systems. No hydroureter or hydronephrosis. No enhancing lesions in the kidneys.Subcentimeter cystic lesion noted in the anterior upper left kidney. Vessels: Mild atherosclerosis. No abdominal aortic aneurysm. Retroperitoneum: No abnormal fluid or lymphadenopathy. Bowel: Normal appendix. Mild diverticulosis noted in the sigmoid anddescending colon without any acute changes of diverticulitis. Normal smallbowel gas pattern. Asymmetrical thickening in the left side of the lower perineum noted,incompletely visualized on this study. Bladder and Reproductive Organs: S/P hysterectomy. No gross pa thology inthe unopacified urinary bladder. Bones: No acute findings. No aggressive bone lesions. Old trauma withprominent Schmorl's nodes and the compressive deformity noted in some ofthe lower thoracic vertebral bodies. Soft tissues: Less than 2 cm size fat containing umbilical hernia. A small fat- containing right ?paramidline hernia in the epigastric region. CONCLUSION: No acute findings in CT scan of abdomen and pelvis. [facility], Radiant Results Inft User - 03/08/2020 3:43 PM CDTCT Abdomen and Pelvis with intravenous contrast.CLINICAL HISTORY: Nausea and vomiting.DOSE: Up-to-date CT equipment and radiation dose reduction techniques wereemployed. CTDIvol: 5.65+8.57 mGy. DLP: 198+407 mGy-cm.TECHNIQUE : Contiguous axial imaging from the level of the lung basesthrough the pubic symphysis were performed after the uncomplicatedadministration of Omnipaque contrast material. Coronal and sagittalreconstructions were obtained. Auto mA and/or iterative reconstruction wereused to reduce radiation dose.FINDINGS: Lower lungs: Clear. No pleural effusion or pericardial effusion. Nodefinite sign of hiatal hernia.Liver, Gallbladder and Spleen: S/P cholecystectomy. Liver measures 16.8 cmin length and spleen is 12 x 4.7 cm. No focal enhancing lesions detected inthe liver or in the spleen. Biliary ducts and the pancreatic duct appear ofnormal size.Peritoneum: No free air or free fluid. No lymphadenopathy.Pancreas and Adrenals: Unremarkable pancreas and right adrenal gland. Mildleft adrenal gland h ypertrophy.Kidneys and Ureters: No visible calculi in the renal collecting systems. No hydroureter or hydronephrosis. No enhancing lesions in the kidneys.Subcentimeter cystic lesion noted in the anterior upper left kidney. Vessels: Mild atherosclerosis. No abdominal aortic aneurysm.Retroperitoneum:No abnormal fluid or lymphadenopathy.Bowel: Normal appendix. Mild diverticulosis noted in the sigmoid anddescending colon without any acute changes of diverticulitis. Normal smallbowel gas pattern.Asymmetrical thickening in the left side of the lower perineum noted,incompletely visualized on this st udy.Bladder and Reproductive Organs: S/P hysterectomy. No gross pathology inthe unopacified urinarybladder.Bones: No acute findings. No aggressive bone lesions. Old trauma withprominent Schmorl's nodes and the compressive deformity noted in some ofthe lower thoracic vertebral bodies.Soft tissues: Less than 2 cm size fat containing umbilical hernia.A small fat-containing right paramidline hernia in the epigastric region.CONCLUSION: No acute findings in CT scan of abdomen and pelvis.[facility] CenterCash [id number] 19:59:00* Test Item Value Reference Range Interpretation Comme nts TROPONIN I (test code = 3982025513) <0.012 See_Comment [Automated message] The system which generated this result transmitted reference range: <=0.034 ng/mL. The reference range was not used to interpret this result as normal/abnormal. RONNIE (test code = RONNIE) Equal or Less than 0.034 ng/ml---Normal ?Note: Cardiac troponin begins to rise 3-4 hours after the onset of ischemia. Repeat in 4-6 hours if the sample was drawn within 3-4 hours of the onset of the symptom and found normal. Between 0.035 and 0.120 ng/mL--- Borderline. Questionable myocardial injury or necrosis ? ?Note: Serial measurement may be necessary to confirm or exclude the diagnosis of myocardial injury or necrosis; Clinical correlation (symptoms, EKGs, imaging studies, and others) required; Repeat in 4-6 hours if clinically indicated. ? Equal or Higher than 0.121 ng/mL---Abnormal. Myocardial Injury or Necrosis Likely ? Biotin has been reported to cause a negative bias, interpret results relative to patient's use of biotin. ? Lab Interpretation (test code = 70448-3) Normal [facility] [id number] 19:55:00* Test Item Value Reference Range Interpretation Comme nts NT-proBNP (test code = 6882704965) 49 pg/mL See_Comment [Automated message] The system which generated this result transmitted reference range: <=125. The reference range was not used to interpret this result as normal/abnormal. RONNIE (test code = RONNIE) Biotin has been reported to cause a negative bias, interpret results relative to patient's use of biotin. Lab Interpretation (test code = 56522-7) Normal [facility] Function Panel (ALB, T.PRO, BILI T, BU/BC, ALT, AST, ALK PHOS)2020-03-08 19:47:00* Test Item Value Reference Range Interpretation Comme nts TOTAL BILI (test code = 0002999785) 0.4 mg/dL 0.1-1.1 BILI UNCON (test code = 3381347914) 0.5 mg/dL 0.1-1.1 BILI CONJ (test code = 9382482193) 0.0 mg/dL 0-0.3 T PROTEIN (test code = 7731417488) 7.8 g/dL 6.3-8.2 ALBUMIN (test code = 7138675941) 4.7 g/dL 3.5-5 ALK PHOS (test code = 0360008147) 65 U/L 34-122 ALTv (test code = 1742-6) 17 U/L 5-35 AST(SGOT) (test code = 7581385549) 23 U/L 13-40 Lab Interpretation (test cod e = 32493-8) Normal [facility] Met[facility] (NA, K, CL, CO2, GLUCOSE, BUN, CREATININE, CA)2020-03-08 19:47:00* Test Item Value Reference Range Interpretation Comme nts NA (test code = 7777265914) 140 mmol/L 135-145 K (test code = 2789934162) 4.2 mmol/L 3.5-5 CL (test code = 9837199591) 105 mmol/L 98-108 CO2 TOTAL (test code = 1795765062) 28 mmol/L 23-31 AGAP (test code = 0481401628) 2-16 BUN (test code = 0242091242) 11 mg/dL 7-23 GLUCOSE (test code = 6044886076) 142 mg/dL 70-110 H CREATININE (test code = 2980000528) 0.75 mg/dL 0.5-1.04 CALCIUM (test code = 3584627123) 10.5 mg/dL 8.6-10.6 eGFR Calculation (Non-) (test code = 5014950620) mL/min/1.73m2 eGFR Calculation () (test code = 7259248851) mL/min/1.73m2 RONNIE (test code = RONNIE) Association of Glomerular Filtration Rate (GFR) and Staging of Kidney Disease* + --+ --+ ------+| GFR (mL/min/1.73 m2) ?| With Kidney Damage ?| ?Without Kidney Damage+ --------+ --------+ +| ?>90 ?| ?Stage one ?| ? Normal ?+ ---+ ---+ -------+| ?60-89 ?| ?Stage two ?| ? Decreased GFR ? + --+ --+ ------+| ?30-59 ?| ?Stage three ?| ? Stage three ? + --+ --+ ------+| ?15-29 ?| ?Stage four ? | ? Stage four ?+ ---+ ---+ -------+| ?<15 (or dialysis) ? ?| ?Stage five ? | ? Stage five ?+ ---+ ---+ -------+ *Each stage assumes the associated GFR level has been in effect for at least three months. ?Stages 1 to 5, with or without kidney disease, indicate chronic kidney disease. Notes: Determination of stages one and two (with eGFR >59mL/min/1.73 m2) requires estimation of kidney damage for at least three months as defined by structural or functional abnormalities of the kidney, manifested by either:Pathological abnormalities or Markers of kidney damage (including abnormalities in the composition of the blood or urine or abnormalities in imaging tests). Lab Interpretation (test code = 59379-4) Abnormal [facility] CenterLipase [id number] 19:47:00* Test Item Value Reference Range Interpretation Comme [facility] LIPASE (test code = 0647719464) 34 U/L 0-220 Lab Interpretation (test cod e = 28085-0) Normal [facility] CenterProthrombin Time (PT) / [id number] 19:45:00 * Test Item Value Reference Range Interpretation Comme [facility] PROTIME PATIENT (test code = 5964-2) See_Comment [Automated [employer] ge] The system which generated this result transmitted reference range: 12.0 - 14.7 Seconds. The reference range was not used to interpret this result as normal/abnormal. INR (test code = 6301-6) Normal INR <1.1; Warfarin Therapeutic range 2.0 to 3.0 or 2.5 to 3.5, depending upon the indications. Lab Interpretation (test code = 17190-1) Normal [facility] CenteraPTT2020-05-13 19:43:00* Test Item Value Reference Range Interpretation Comme [facility] APTT Patient (test code = 3173-2) See_Comment [Automated message] The system which generated this result transmitted reference range: 23 - 38 Seconds. The reference range was not used to interpret this result as normal/abnormal. RONNIE (test code = RONNIE) The [facility] patient population mean normal value for aPTT is 30 seconds. Lab Interpretation (test code = 73345-7) Normal [facility] WITH [id number] 19:35:00* Test Item Value Reference Range Interpretation Comme nts WBC (test code = 6690-2) See_Comment [Automated messa ge] The system which generated this result transmitted reference range: 4.30 - 11.10 10*3/?L. The reference range was not used to interpret this result as normal/abnormal. RBC (test code = 789-8) See_Comment H [Automated messa ge] The system which generated this result transmitted reference range: 3.93 - 5.25 10*6/?L. The reference range was not used to interpret this result as normal/abnormal. HGB (test code = 718-7) 16.3 g/dL 11.6-15 H HCT (test code = 4544-3) 48.8 % 35.7-45.2 H MCV (test code = 787-2) 92.6 fL 80.6-95.5 MCH (test code = 785-6) 30.9 pg 25.9-32.8 MCHC (test code = 786-4) 33.4 g/dL 31.6-35.1 RDW-SD (test code = 24514-0) 41.1 fL 39-49.9 RDW-CV (test code = 788-0) 12.0 % 12-15.5 PLT (test code = 777-3) See_Comment [Automated messa ge] The system which generated this result transmitted reference range: 166 - 358 10*3/?L. The reference range was not used to interpret this result as normal/abnormal. MPV (test code = 49760-7) 10.8 fL 9.5-12.9 NRBC/100 WBC (test code = 0981286104) See_Comment [Automated [employer] ssage] The system which generated this result transmitted reference range: 0.0 - 10.0 /100 WBCs. The reference range was not used to interpret this result as normal/abnormal. NRBC x10^3 (test code = 5808557290) <0.01 See_Comment [Automated messa ge] The system which generated this result transmitted reference range: 10*3/?L. The reference range was not used to interpret this result as normal/abnormal. GRAN MAT (NEUT) % (test code = 770-8) 50.0 % IMM GRAN % (test code = 9001448812) 0.20 % LYMPH % (test code = 736-9) 44.5 % MONO % (test code = 5905-5) 4.4 % EOS % (test code = 713-8) 0.0 % BASO % (test code = 706-2) 0.9 % GRAN MAT x10^3(ANC) (test code = 0639120039) 4.05 10*3/uL 1.88-7.09 IMM GRAN x10^3 (test code = 9015840914) <0.03 0-0.06 LYMPH x10^3 (test code = 731-0) 3.61 10*3/uL 1.32-3.29 H MONO x10^3 (test code = 742-7) 0.36 10*3/uL 0.33-0.92 EOS x10^3 (test code = 711-2) <0.03 0.03-0.39 L BASO x10^3 (test code = 704-7) 0.07 10*3/uL 0.01-0.07 Lab Interpretation (test code = 40831-0) Abnormal [facility]
[2023-11-21 13:37] LABS: Absolute Lymphocytes (CBC) 1.6 K/uL (0.7-4.9); Hematocrit 44.7 % (36.0-45.0); Lymphocytes % 18.1 % (15.3-44.8); MCV 91.5 fL (80-100); MPV 8.1 fL (7.6-11.3); Platelets 231 thou/uL (152-406); RBC Red Blood Cell Count 4.89 M/uL (3.86-4.86)
[2023-11-21 13:51] LABS: Potassium 4.1 mEq/L (3.5-5.1); Troponin High Sensitivity 6.9 pg/mL (<58.9)
--- NOTE | 2023-11-21 14:26 | RAD REPORT ---
EXAM DESCRIPTION: RAD - Chest Single View - 11/21/2023 2:15 pm CLINICAL HISTORY: CHEST PAIN Chest pain. COMPARISON: No comparisons FINDINGS: Portable technique limits examination quality. Interstitial markings are mildly prominent diffusely which probably represents a viral infection or u nderlying bronchitis. No focal consolidation to indicate bacterial pneumonia. The heart is upper limi t normal. No displaced fractures.
[2023-11-21 15:41] LABS: SARS-CoV-2 Antigen Rapid Res Positive (Negative)
--- NOTE | 2023-11-21 16:13 | EDPHYS ---
Physician Documentation [facility] Name: Emilie Sauceda Age: 63 yrs Sex: Female : 1960 Arrival Date: 11/21/2023 Time: 13:05 Bed 6 Private MD: ED Physician Dax Ac HPI: 11/21 13:46 This 63 yrs old Female presents to ER via EMS with complaints of Chest Pain. ms3 13:46 63-year-old female with past medical history of hypertension, COPD presents to the [facility] emergency department for shortness of breath and chest pain. Patient states she was diagnosed with pneumonia 1 week ago. Patient endorses sweating, nausea and vomiting. Patient states her pain is an 8/10.. Historical: - Allergies: 13:13 Ibuprofen; ld1 13:13 NSAIDS; ld1 - PMHx: 13:13 Hypertensive disorder; COPD; ld1 - PSHx: 13:13 Total abdominal hysterectomy; Cholecystectomy; ld1 - Immunization history:: Adult Immunizations up to date. - Social history:: Smoking status: Patient reports the use of cigarette tobacco products, smokes one-half pack cigarettes per day, Patient/guardian denies using alcohol. ROS: 13:46 Constitutional: Negative for fever, and chills. Neck: Negative for injury, pain, and ms3 swelling, Cardiovascular: Negative for chest pain, and palpitations. Respiratory: Negative for shortness of breath, cough, wheezing, and pleuritic chest pain, MS/Extremity: Negative for injury and deformity, Skin: Negative for injury, rash, and discoloration, 13:46 Abdomen/GI: Positive for nausea and vomiting, 13:46 All other systems are negative, Exam: 13:46 Constitutional: This is a well developed, well nourished patient who is awake, alert, ms3 and in no acute distress. Head/Face: Normocephalic, atraumatic. Neck: Trachea midline, no cervical lymphadenopathy. Supple, full range of motion without nuchal rigidity, or vertebral point tenderness. No Meningismus. Chest/axilla: Normal chest wall appearance and motion. Nontender with no deformity. Cardiovascular: Regular rate and rhythm with a normal S1 and S2. No gallops, murmurs, or rubs. Normal PMI, no JVD. No pulse deficits. Respiratory: Lungs have equal breath sounds bilaterally, clear to auscultation and percussion. No rales, rhonchi or wheezes noted. No increased work of breathing, no retractions or nasal flaring. Abdomen/GI: Soft, non-tender, with normal bowel sounds. No distension or tympany. No guarding or rebound. No evidence of tenderness throughout. Skin: Warm, dry with normal turgor. Normal color with no rashes, no lesions, and no evidence of cellulitis. MS/ Extremity: Pulses equal, no cyanosis. Neurovascular intact. Full, normal range of motion. 13:48 ECG was reviewed by the Attending Physician. ms3 Vital Signs: 13:12 Temp 97.9(O); Weight 64.41 kg; Height 5 ft. 3 in. ; Pain 0/10; ld1 13:19 BP 151 / 74; Pulse 79; Resp 18; Pulse Ox 99% on R/A; ld1 14:45 BP 134 / 70; Pulse 76; Resp 18; Pulse Ox 90% on 2 lpm NC; ld1 16:00 BP 143 / 71; Pulse 76; Resp 18; Pulse Ox 91% on 2 lpm NC; ld1 13:12 Body Mass Index 25.15 (64.41 kg, 160.02 cm) ld1 13:12 Pain Scale: Adult ld1 MDM: 13:43 Patient medically screened. ms3 13:46 Differential diagnosis: abnormal EKG, acute myocardial infarction, coronary artery ms3 disease. 16:13 Data reviewed: vital signs, nurses notes, lab test result(s), EKG, radiologic studies, ms3 and as a result, I will discharge patient. Consideration of Admission/Observation Patient was admitted/placed on observation. Management of patient was discussed with the following: Hospitalist: Dr Douglas. I considered the following discharge prescriptions or medication management in the emergency department Medications were administered in the Emergency Department. See MAR. Independent interpretation of the following test(s) in the Emergency Department EKG: See my EKG interpretation above X-Ray: My interpretation is CXR image reviewed by me shows RLL infiltrates. Historians other than the Patient: EMS: [facility]. Counseling: I had a detailed discussion with the patient and/or guardian regarding the historical points, exam findings, and any diagnostic results supporting the discharge/admit diagnosis, lab results, radiology results, the need for further work-up and treatment in the hospital. ED course: Discussed necessity for admission with patient. Patient stands agrees with plan. Questions were answered. 11/21 13:20 Order name: Basic Metabolic Panel; Complete Time: 14:25 11/21 13:20 Order name: CBC with Diff; Complete Time: 14:25 ld11/21 13:20 Order name: Troponin HS; Complete Time: 14:25 ld11/21 14:30 Order name: BNP; Complete Time: 16:04 ms3 11/21 14:30 Order name: Flu; Complete Time: 16:04 ms3 11/21 14:30 Order name: SARS RAPID; Complete Time: 16:04 ms3 11/21 16:23 Order name: C-Reactive Protein [facility] 11/21 16:23 Order name: C-Reactive Protein [facility] 11/21 16:23 Order name: CBC with Automated Diff EDMS 11/21 16:23 Order name: CBC with Automated Diff [facility] 11/21 16:23 Order name: Comprehensive Metabolic Panel [facility] 11/21 16:23 Order name: Comprehensive Metabolic Panel [facility] 11/21 16:23 Order name: D-Dimer [facility] 11/21 16:23 Order name: D-Dimer [facility] 11/21 13:20 Order name: XRAY Chest (1 view); Complete Time: 14:29 11/21 13:20 Order name: EKG; Complete Time: 13:20 11/21 13:20 Order name: Cardiac monitoring; Complete Time: 13:20 11/21 13:20 Order name: EKG - Nurse/Tech; Complete Time: 13:20 11/21 13:20 Order name: IV Saline Lock; Complete Time: 13:34 11/21 13:20 Order name: Labs collected and sent; Complete Time: 13:34 11/21 13:20 Order name: O2 Per Protocol; Complete Time: 13:11/21 13:20 Order name: O2 Sat Monitoring; Complete Time: 13: EC:48 Rate is 77 beats/min. Rhythm is regular. Right axis deviation noted. NE interval is ms3 normal. QRS interval is normal. Clinical impression: NSR w/ Non-specific ST/T Changes. Interpreted by me. Reviewed by me. Administered Medications: 16:27 Drug: MethylPrednisoLONE IVP 125 mg IVP once Route: IVP; Site: right antecubital; ld1 16:27 Drug: Albuterol Inhalation 2.5 mg Inhalation every 20 minutes x3 Route: Inhalation; ld1 16:27 Drug: Ipratropium Inhalation Aerosol 0.5 mg Inhalation once Route: Inhalation; ld1 16:40 Drug: AZITHromycin IVPB 500 mg IVPB once over 1 hrs; (mix in 250 mL NS) Route: IVPB; rs5 Infused Over: 1 hrs; Site: right antecubital; Disposition Summary: 11/21/23 16:12 Hospitalization Ordered Notes: Hospitalization Status: Inpatient Admission ms3 Provider: Lazaro Douglas ms3 Location: Telemetry/MedSurg (Inpatient) ms3 Condition: Stable ms3 Problem: new ms3 Symptoms: are unchanged ms3 Bed/Room Type: Standard ms3 Room Assignment: 409(11/21/23 16:41) eb Diagnosis - SARS-associated coronavirus as the cause of diseases classified elsewhere ms3 - COPD/ Chronic obstructive pulmonary disease with (acute) exacerbation ms3 - Acute respiratory failure with hypoxia ms3 Forms: - Medication Reconciliation Form ms3 - SBAR form ms3 - Leadership Thank You Letter ms3 Signatures: Dispatcher [employer] Vane Hernandez Marcus, DO DO ms3 Joanne Ac RN RN ld1 Foreign Allen RN RN rs5 Corrections: (The following items were deleted from the chart) 13:17 13:13 PMHx: Hypercholesterolemia; ld1 ld1 16:41 16:12 ms3 eb
--- NOTE | 2023-11-21 16:13 | ER ---
Nurse's Notes [facility] Name: Emilie Sauceda Age: 63 yrs Sex: Female : 1960 Arrival Date: 11/21/2023 Time: 13:05 Bed 6 Private MD: Diagnosis: SARS-associated coronavirus as the cause of diseases classified elsewhere;COPD/ Chronic obstructive pulmonary disease with (acute) exacerbation;Acute respiratory failure with hypoxia Presentation: 11/21 13:12 Chief complaint: EMS states: toned out to patient home for SOB, N/V. Pt reports testing ld1 postive for flu last week, has flu, and covid pneumonia. Coronavirus screen: At this time, the client does not indicate any symptoms associated with coronavirus-19. Ebola Screen: No symptoms or risks identified at this time. Risk Assessment: Do you want to hurt yourself or someone else? Patient reports no desire to harm self or others. Onset of symptoms was November 21, 2023. 13:12 Method Of Arrival: EMS: [facility] ld1 13:12 Acuity: DEBRA 3 ld1 16:55 Initial Sepsis Screen: Does the patient meet any 2 criteria? No. Patient's initial ld1 sepsis screen is negative. Does the patient have a suspected source of infection? No. Patient's initial sepsis screen is negative. Triage Assessment: 13:13 General: Appears in no apparent distress. comfortable, Behavior is calm, cooperative, ld1 appropriate for age. Pain: Complains of pain in chest Pain does not radiate. Pain currently is 7 out of 10 on a pain scale. Quality of pain is described as throbbing, Pain began suddenly, Is continuous. EENT: No signs and/or symptoms were reported regarding the EENT system. Neuro: Level of Consciousness is awake, alert, obeys commands, Oriented to person, place, time, situation. Cardiovascular: Capillary refill < 3 seconds Patient's skin is warm and dry. Rhythm is sinus rhythm. Cardiovascular: Reports chest pain. Respiratory: Airway is patent Respiratory effort is even, unlabored. GI: Abdomen is round non-distended. : No signs and/or symptoms were reported regarding the genitourinary system. Derm: No signs and/or symptoms reported regarding the dermatologic system. Musculoskeletal: No signs and/or symptoms reported regarding the musculoskeletal system. Historical: - Allergies: 13:13 Ibuprofen; ld1 13:13 NSAIDS; ld1 - PMHx: 13:13 Hypertensive disorder; COPD; ld1 - PSHx: 13:13 Total abdominal hysterectomy; Cholecystectomy; ld1 - Immunization history:: Adult Immunizations up to date. - Social history:: Smoking status: Patient reports the use of cigarette tobacco products, smokes one-half pack cigarettes per day, Patient/guardian denies using alcohol. Screenin:19 [facility] ED Fall Risk Assessment (Adult) History of falling in the last 3 months, ld1 including since admission No falls in past 3 months (0 pts). Abuse screen: Denies threats or abuse. Denies injuries from another. Nutritional screening: No deficits noted. Tuberculosis screening: No symptoms or risk factors identified. Assessment: 13:19 Reassessment: See triage assessment. ld1 Vital Signs: 13:12 Temp 97.9(O); Weight 64.41 kg; Height 5 ft. 3 in. ; Pain 0/10; ld1 13:19 BP 151 / 74; Pulse 79; Resp 18; Pulse Ox 99% on R/A; ld1 14:45 BP 134 / 70; Pulse 76; Resp 18; Pulse Ox 90% on 2 lpm NC; ld1 16:00 BP 143 / 71; Pulse 76; Resp 18; Pulse Ox 91% on 2 lpm NC; ld1 13:12 Body Mass Index 25.15 (64.41 kg, 160.02 cm) ld1 13:12 Pain Scale: Adult ld1 ED Course: 13:07 Patient arrived in ED. ld1 13:10 Dax Ac DO is Attending Physician. ms3 13:12 Joanne Ac, RN is Primary Nurse. ld1 13:13 Triage completed. ld1 13:13 Arm band placed on right wrist. ld1 13:19 Patient has correct armband on for positive identification. Placed in gown. Bed in low ld1 position. Call light in reach. Side rails up X2. personnel monitor on. Pulse ox on. NIBP on. Door closed. Noise minimized. Warm blanket given. 13:19 No provider procedures requiring assistance completed. Patient maintains SpO2 ld1 saturation greater than 95% on room air. 13:34 Basic Metabolic Panel Sent. bc6 13:34 CBC with Diff Sent. bc6 13:34 Troponin HS Sent. bc6 13:34 Inserted saline lock: 22 gauge in right forearm, using aseptic technique. Blood bc6 collected. 14:17 XRAY Chest (1 view) In Process Unspecified. EDMS 15:00 SARS RAPID Sent. rc3 15:00 Flu Sent. rc3 15:00 BNP Sent. rc3 16:12 Lazaro Douglas MD is Hospitalizing Provider. ms3 16:55 Patient admitted, IV remains in place. ld1 Administered Medications: 16:27 Drug: MethylPrednisoLONE IVP 125 mg IVP once Route: IVP; Site: right antecubital; ld1 16:27 Drug: Albuterol Inhalation 2.5 mg Inhalation every 20 minutes x3 Route: Inhalation; ld1 16:27 Drug: Ipratropium Inhalation Aerosol 0.5 mg Inhalation once Route: Inhalation; ld1 16:40 Drug: AZITHromycin IVPB 500 mg IVPB once over 1 hrs; (mix in 250 mL NS) Route: IVPB; rs5 Infused Over: 1 hrs; Site: right antecubital; Medication: 13:19 VIS not applicable for this client. ld1 Outcome: 16:12 Decision to Hospitalize by Provider. ms3 16:54 Admitted to Med/surg accompanied by tech, via wheelchair, room 409, with chart, Report ld1 called to SARAH Valencia 16:54 Condition: stable 16:54 Instructed on the need for admit, 17:06 Patient left the ED. ld1 Signatures: Dispatcher [employer] EDME Dax Ac, DO ms3 Joanne Ac RN RN ld1 Foreign Allen RN RN rs5 Nasima Lynch bc6 Diana Torres rc3 Corrections: (The following items were deleted from the chart) 13:17 13:13 PMHx: Hypercholesterolemia; ld1 ld1
[2023-11-21] MEDS ORDERED: ALBUTEROL 2.5 MG/3 ML NEB SOL ONE (16:16)
[2023-11-21] MEDS ORDERED: IPRATROPIUM BROM 0.5MG/2.5ML ONE (16:16)
[2023-11-21] MEDS ORDERED: METHYLPREDNISOLONE 125 MG INJ ONE (16:16)
[2023-11-21] MEDS ORDERED: ACETAMINOPHEN 500 MG TAB PO PRN (16:17)
--- NOTE | 2023-11-21 16:22 | P.HP ---
Certification for Inpatient Patient admitted to: Inpatient With expected LOS: >2 Midnights Patient will require the following post-hospital care: None Practitioner: I am a practitioner with admitting privileges, knowledge of patient current condition, hospital course, and medical plan of care. Services: Services provided to patient in accordance with Admission requirements found in Title 42 Section 412.3 of the Code of Federal Regulations Patient History Date of Service: 11/21/23 Reason for admission: Hypoxemia/COVID-19 pneumonia History of Present Illness: Patient is a 63-year-old female came to the hospital with chest pain. Patient was having shortness of breath and some chest pain. Patient was diagnosed with pneumonia about a week ago. Patient tested in the emergency room positive for COVID-pneumonia. Patient has some nausea and vomiting but that has resolved. Patient does have some pleuritic chest pain as well. Patient will be admitted to the hospital for COVID-19 pneumonia. Allergies ibuprofen Adverse Reaction (Verified 11/21/23 17:32) Anaphylaxis NSAIDS (Non-Steroidal Anti-Inflamma Adverse Reaction (Verified 11/21/23 17:32) Anaphylaxis Home Medications: Albuterol Neb [Proventil 0.083% Neb Soln] 2.5 mg IH Q6H 11/21/23 Zolpidem Tartrate [Ambien] 10 mg PO BEDTIME PRN PRN 11/21/23 - Past Medical/Surgical History -: COPD -: Insomnia -: Cholecystectomy -: Hysterectomy - Family History Father Medical History: Heart disease Notes: emph Mother Notes: lung cancer Brother Notes: kidney cancer - Social History Smoking Status: Former smoker Alcohol use: No CD- Drugs: No Review of Systems 10-point ROS is otherwise unremarkable Physical Examination - Vital Signs Temperature: 101 F (VITALS REVIEWED) Pulse Ox (%): 85 - Physical Exam General: Alert, In no apparent distress, Oriented x3, Oriented x2 HEENT: Atraumatic, PERRLA, Mucous membr. moist/pink, EOMI, Sclerae nonicteric Neck: Supple, 2+ carotid pulse no bruit, No LAD, Without JVD or thyroid abnormality Respiratory: Diminished, Expiratory wheezes Cardiovascular: Regular rate/rhythm, Normal S1 S2 Gastrointestinal: Normal bowel sounds, Soft and benign, Non-distended, No tenderness Musculoskeletal: No clubbing, No swelling, No tenderness Integumentary: No rashes Neurological: Normal gait, Normal speech, Normal strength at 5/5 x4 extr, Normal tone, Sensation intact, Cranial nerves 3-12 intact, Normal affect Lymphatics: No axilla or inguinal lymphadenopathy - Studies Laboratory Data (last 24 hrs) 11/21/23 11/21/23 13:25 13:25 WBC 8.80 Hgb 15.2 H Hct 44.7 Plt Count 231 Sodium 141 Potassium 4.1 BUN 12 Creatinine 0.83 Glucose 101 Microbiology Data (last 24 hrs): 11/21/23 14:55 Nasopharnyx Influenza Type A Antigen Screen - Final 11/21/23 14:55 Nasopharnyx Influenza Type B Antigen Screen - Final Assessment & Plan - Problems (Diagnosis) (1) Pneumonia due to COVID-19 virus Current Visit: Yes Status: Acute (2) COPD with acute bronchitis Current Visit: Yes Status: Acute (3) Hypoxemia Current Visit: Yes Status: Acute - Plan 1. IV steroids 2. O2 per protocol 3. Pulmonary consultation 4. Monitor labs 5. If doing well may be able to discharge on Paxlovid Discharge Plan: Home Plan to discharge in: Greater than 2 days - Advance Directives Does patient have a Living Will: No Does patient have a Durable POA for Healthcare: No - Code Status/Comfort Care Code Status Assessed: Yes Code Status: Full Code Critical Care: No Time Spent Managing PTS Care (In Minutes): 45
[2023-11-21] MEDS ORDERED: NA CHLORIDE 0.9% 250 ML ONE (16:33)
[2023-11-21] MEDS ORDERED: AZITHROMYCIN 500 MG INJ IVPB ONE (16:33)
[2023-11-21] MEDS: NA CHLORIDE 0.9% 1,000 ML IV SCH (17:32)
[2023-11-21] MEDS: dexAMETHasone 4 MG/ML VIAL IV SCH ×2 (17:36→23:07)
[2023-11-21] MEDS: MORPHINE 2 MG/ML SYR IV PRN ×2 (17:37→22:07)
[2023-11-21] MEDS: ONDANSETRON 4 MG/2 ML VIAL IV PRN (17:43)
[2023-11-21] MEDS: APIXABAN 2.5 MG TABLET PO SCH (20:53)
[2023-11-21] MEDS: NIRMATRELVIR/RITONAVIR TABLET PO SCH (20:53)
[2023-11-21] MEDS ORDERED: APIXABAN 5 MG TABLET PO SCH (21:00)
[2023-11-21] MEDS: ALBUTEROL 2.5 MG/3 ML NEB SOL IH SCH (21:49)
[2023-11-21] MEDS ORDERED: PNEUMOCOCCAL VACCINE 0.5 ML IMVAC ONE (22:00)
[2023-11-21] MEDS ORDERED: INFLUENZA VACCINE (for 6+ mo) 0.5 ML DOSE IMVAC ONE (22:00)
[2023-11-21] MEDS: BENZONATATE 100 MG CAP PO PRN (22:07)
[2023-11-21] MEDS: ZOLPIDEM TARTRATE 10 MG TABLET PO PRN (23:07)
[2023-11-22] MEDS: ALBUTEROL 2.5 MG/3 ML NEB SOL IH SCH (02:33)
[2023-11-22] MEDS: dexAMETHasone 4 MG/ML VIAL IV SCH ×3 (05:20→17:12)
[2023-11-22] MEDS: NA CHLORIDE 0.9% 1,000 ML IV SCH ×2 (05:21→17:19)
[2023-11-22] MEDS: MORPHINE 2 MG/ML SYR IV PRN ×4 (05:21→19:44)
[2023-11-22 06:41] LABS: Absolute Lymphocytes (CBC) 0.7 K/uL (0.7-4.9); Hematocrit 40.2 % (36.0-45.0); Lymphocytes % 8.4 % (15.3-44.8); MCV 91.9 fL (80-100); MPV 8.2 fL (7.6-11.3); Platelets 240 thou/uL (152-406); RBC Red Blood Cell Count 4.37 M/uL (3.86-4.86)
[2023-11-22 07:11] LABS: Albumin 2.4 g/dL (3.4-5.0); Bilirubin Total 0.3 mg/dL (0.2-1.0); C-Reactive Protein 25.7 mg/L (<3.00); Potassium 4.1 mEq/L (3.5-5.1); Protein, Total 6.5 g/dL (6.4-8.2)
[2023-11-22] MEDS: NIRMATRELVIR/RITONAVIR TABLET PO SCH ×2 (08:10→21:31)
[2023-11-22] MEDS: BENZONATATE 100 MG CAP PO PRN (08:11)
[2023-11-22] MEDS: APIXABAN 2.5 MG TABLET PO SCH ×2 (08:11→21:30)
[2023-11-22 08:25] LABS: Blood Morphology Comment NOT SEEN (NOT SEEN); Platelet Estimate ADEQ; White Blood Cell Scan OK (OK)
--- NOTE | 2023-11-22 10:53 | P.PN ---
Subjective Date of Service: 11/22/23 Chief Complaint: Hypoxemia/COVID-19 pneumonia Reports pleuritic chest pain, controlled with as needed analgesics reports, shortness of breath worse with exertion - Physical Exam General: Alert, In no apparent distress, Oriented x3, Oriented x2 HEENT: Atraumatic, PERRLA, Mucous membr. moist/pink, EOMI, Sclerae nonicteric Neck: Supple, 2+ carotid pulse no bruit, No LAD, Without JVD or thyroid ab normality Respiratory: Diminished, Expiratory wheezes Cardiovascular: Regular rate/rhythm, Normal S1 S2 Gastrointestinal: Normal bowel sounds, Soft and benign, Non-distended, No tenderness Musculoskeletal: No clubbing, No swelling, No tenderness Integumentary: No rashes Neurological: Normal gait, Normal speech, Normal strength at 5/5 x4 extr, Normal tone, Sensation intact, Cranial nerves 3-12 intact, Normal affect Lymphatics: No axilla or inguinal lymphadenopathy Review of Systems per HPI Physical Examination - Vital Signs Temperature: 97.6 F Blood Pressure: 133/63 Pulse: 75 Respirations: 17 Pulse Ox (%): 96 - Studies Laboratory Data (last 24 hrs) 11/21/23 11/21/23 13:25 13:25 WBC 8.80 Hgb 15.2 H Hct 44.7 Plt Count 231 Sodium 141 Potassium 4.1 BUN 12 Creatinine 0.83 Glucose 101 Microbiology Data (last 24 hrs): 11/21/23 14:55 Nasopharnyx Influenza Type A Antigen Screen - Final 11/21/23 14:55 Nasopharnyx Influenza Type B Antigen Screen - Final Assessment And Plan - Plan Assessment plan COVID-19 positive test (U07.1, COVID-19) with Acute Pneumonia (J12.89, Other viral pneumonia) Acute hypoxic respiratory failure secondary to COPD exacerbation versus acute bronchitis Hypoxemia Elevated CRP O2 2 L keep sats greater than 90% Pulmonary consult IV steroids, nebs, start Paxlovid Chest x-ray nterstitial markings are mildly prominent diffusely which probably represents a viral infection or underlying bronchitis. No focal consolidation to indicate bacterial pneumonia. The heart is upper limit normal. No displaced fractures. Diet Full code DVT Eliquis Discharge Plan: Home - Code Status/Comfort Care Code Status: Full Code Critical Care: No Time Spent Managing PTS Care (In Minutes): 35
[2023-11-22] MEDS: ALBUTEROL 2.5 MG/3 ML NEB SOL NEB SCH ×2 (13:22→19:55)
[2023-11-22] MEDS: ONDANSETRON 4 MG/2 ML VIAL IV PRN (15:48)
[2023-11-22] MEDS: ZOLPIDEM TARTRATE 10 MG TABLET PO PRN (21:57)
[2023-11-23] MEDS: dexAMETHasone 4 MG/ML VIAL IV SCH ×5 (00:56→21:28)
[2023-11-23] MEDS: ALBUTEROL 2.5 MG/3 ML NEB SOL NEB SCH ×4 (01:31→19:50)
[2023-11-23] MEDS: MORPHINE 2 MG/ML SYR IV PRN ×5 (02:44→23:57)
[2023-11-23] MEDS: NA CHLORIDE 0.9% 1,000 ML IV SCH ×2 (08:30→21:28)
[2023-11-23] MEDS: APIXABAN 2.5 MG TABLET PO SCH ×2 (08:32→21:28)
[2023-11-23] MEDS: NIRMATRELVIR/RITONAVIR TABLET PO SCH ×2 (08:32→21:28)
--- NOTE | 2023-11-23 10:21 | P.PN ---
Subjective Date of Service: 11/23/23 Chief Complaint: Hypoxemia/COVID-19 pneumonia tearful, Reports pleuritic chest pain, shortness of breath worse with exertion, moderate - Physical Exam General: Alert, In no apparent distress, Oriented x3, Oriented x2 HEENT: Atraumatic, PERRLA, Mucous membr. moist/pink, EOMI, Sclerae nonicteric Neck: Supple, 2+ carotid pulse no bruit, No LAD, Without JVD or thyroid abnormality Respiratory: Diminished, Expiratory wheezes Cardiovascular: Regular rate/rhythm, Normal S1 S2 Gastrointestinal: Normal bowel sounds, Soft and benign, Non-distended, No tenderness Musculoskeletal: No clubbing, No swelling, No tenderness Integumentary: No rashes Neurological: Normal gait, Normal speech, Normal strength at 5/5 x4 extr, Normal tone, Sensation intact, Cranial nerves 3-12 intact, Normal affect Lymphatics: No axilla or inguinal lymphadenopathy Review of Systems per hpi Physical Examination - Vital Signs Temperature: 97.7 F Blood Pressure: 156/72 Pulse: 77 Respirations: 19 Pulse Ox (%): 99 Assessment And Plan - Plan Assessment plan COVID-19 positive test (U07.1, COVID-19) with Acute Pneumonia (J12.89, Other viral pneumonia) Acute hypoxic respiratory failure secondary to COPD exacerbation versus acute bronchitis Hypoxemia Elevated CRP O2 2 L keep sats greater than 90% Pulmonary consult IV steroids, nebs, start Paxlovid, Levaquin added Chest x-ray nterstitial markings are mildly prominent diffusely which probably represents a viral infection or underlying bronchitis. No focal consolidation to indicate bacterial pneumonia. The heart is upper limit normal. No displaced fractures. pleuritic chest pain CT PE ORDERED , prn analgesics Po and IV prn Anxiety Ativan 0.5 bid po prn Diet Full code DVT Eliquis - Code Status/Comfort Care Code Status: Full Code Critical Care: No Time Spent Managing PTS Care (In Minutes): 35
[2023-11-23] MEDS: ONDANSETRON 4 MG/2 ML VIAL IV PRN (11:02)
[2023-11-23] MEDS: LACTOBACILLUS/ACIDOPHILUS TAB PO SCH ×2 (11:25→16:49)
[2023-11-23] MEDS: LORAZEPAM 0.5 MG TABLET PO PRN (11:25)
[2023-11-23] MEDS: Levofloxacin 750mg IV 750 MG/150 ML BAG IV SCH (11:25)
--- NOTE | 2023-11-23 13:11 | RAD REPORT ---
EXAM DESCRIPTION: CT - Chest For Pe Angio - 11/23/2023 12:45 pm CLINICAL HISTORY: CP, SOB COMPARISON: No comparisons TECHNIQUE: Dynamically enhanced axial 3 mm thick images of the chest were obtained during administra tion of <100> mL Isovue 370 IV contrast. Coronal and oblique reconstruction images were generated and reviewed. Exam utilizes a protocol for optimal evaluation of pulmonary arterial tree. Maximum intensity projections 3D imaging was utilized All CT scans are performed using dose optimization technique as appropriate and may include automated exposure control or mA/KV adjustment according to patient size. FINDINGS: Chest Wall: No suspicious thyroid nodules or pathologic lymphadenopathy. Lungs: Faint widespread micro nodularity. No consolidation. No dominant pulmonary nodule. Pleura: No significant effusions or pneumothorax. Mediastinum/levy: No pathologic lymphadenopathy. Circumferential thickened distal esophagus . Pulmonary arteries/Aorta: No filling defect identified. No aortic aneurysm. Heart: No significant pericardial effusion. Normal heart size. Upper abdomen: No acute abnormality.Reflux of contrast into the hepatic veins. Bones: No acute abnormality. Multilevel degenerative changes are present in the spine. IMPRESSION: Negative for pulmonary embolism. Widespread mild micronodularity consistent with an infe ctious or inflammatory process such as a bronchiolitis. The could be viral or other atypical processe s. No consolidative pneumonia or pulmonary edema.
[2023-11-23] MEDS: HYDROCODONE/APAP 5/325 MG TAB PO PRN (16:52)
[2023-11-23] MEDS ORDERED: clonazePAM 1 MG TAB PO ONE (18:40)
[2023-11-23] MEDS ORDERED: METHYLPREDNISOLONE 40 MG INJ IV ONE (18:40)
[2023-11-23] MEDS ORDERED: FENTANYL CITR 100 MCG/2 ML IV ONE (18:41)
[2023-11-24] MEDS: ALBUTEROL 2.5 MG/3 ML NEB SOL NEB SCH ×4 (01:40→19:35)
[2023-11-24] MEDS: MORPHINE 2 MG/ML SYR IV PRN ×4 (05:00→21:37)
[2023-11-24 05:17] LABS: Absolute Lymphocytes (CBC) 0.7 K/uL (0.7-4.9); Hematocrit 40.2 % (36.0-45.0); Lymphocytes % 4.7 % (15.3-44.8); MCV 91.5 fL (80-100); MPV 7.7 fL (7.6-11.3); Platelets 328 thou/uL (152-406); RBC Red Blood Cell Count 4.39 M/uL (3.86-4.86)
[2023-11-24 05:37] LABS: C-Reactive Protein 4.75 mg/L (<3.00); Potassium 4.3 mEq/L (3.5-5.1)
[2023-11-24] MEDS: APIXABAN 2.5 MG TABLET PO SCH ×2 (08:29→21:08)
[2023-11-24] MEDS: LACTOBACILLUS/ACIDOPHILUS TAB PO SCH ×3 (08:29→16:31)
[2023-11-24] MEDS: NIRMATRELVIR/RITONAVIR TABLET PO SCH ×2 (08:29→21:00)
[2023-11-24] MEDS: dexAMETHasone 4 MG/ML VIAL IV SCH ×2 (08:29→21:08)
[2023-11-24] MEDS: HYDROCODONE/APAP 5/325 MG TAB PO PRN ×2 (11:23→18:27)
[2023-11-24] MEDS: NA CHLORIDE 0.9% 1,000 ML IV SCH (11:24)
[2023-11-24] MEDS: Levofloxacin 750mg IV 750 MG/150 ML BAG IV SCH (11:24)
[2023-11-24] MEDS: LORAZEPAM 0.5 MG TABLET PO PRN (13:49)
--- NOTE | 2023-11-24 17:15 | P.PN ---
Subjective Date of Service: 11/24/23 Chief Complaint: Hypoxemia/COVID-19 pneumonia Subjective: New changes Patient complaining of abdominal pain and shortness of breath. Continue current treatment regimen. <Negro Carrera - Last Filed: 11/24/23 17:09> Date of Service: 11/24/23 <Homer Ellis - Last Filed: 11/24/23 21:46> Review of Systems General: Malaise Eyes: Unremarkable ENT: Unremarkable Respiratory: Shortness of Breath, SOB with Excertion Cardiovascular: Unremarkable Gastrointestinal: Abdominal Pain Genitourinary: Unremarkable Musculoskeletal: Unremarkable Integumentary: Unremarkable Neurological: Unremarkable Lymphatics: Unremarkable <Negro Carrera - Last Filed: 11/24/23 17:09> Physical Examination - Vital Signs Temperature: 98.4 F Blood Pressure: 140/72 Pulse: 65 Respirations: 20 Pulse Ox (%): 96 - Physical Exam General: Alert, Oriented x3, Mild distress HEENT: Atraumatic, PERRLA, EOMI Neck: Supple, JVD not distended Respiratory: Normal air movement, Diminished Cardiovascular: No edema, Regular rate/rhythm, Normal S1 S2 Capillary refill: <2 Seconds Gastrointestinal: Normal bowel sounds, Tenderness Musculoskeletal: No clubbing, No tenderness Integumentary: No rashes Neurological: Normal speech, Normal tone, Normal affect Lymphatics: No axilla or inguinal lymphadenopathy <Negro Carrera - Last Filed: 11/24/23 17:09> Assessment And Plan - Plan Interval history. 11/24/2023. Patient seen at bedside. Patient continues to complain of shortness of breath. Continue current treatment regimen. Patient on O2 therapy at 2 L/min. Patient complaining of upper quadrants and epigastric pain. CT abdominal imaging pending for further evaluation. Surgeon consulted. Continue current pain medication regimen. Will await further recommendations from surgeon and gas turbine assembler. Continue supportive care. COVID-19 positive test (U07.1, COVID-19) with Acute Pneumonia (J12.89, Other viral pneumonia) Acute hypoxic respiratory failure secondary to COPD exacerbation versus acute bronchitis Hypoxemia Elevated CRP O2 2 L keep sats greater than 90% Pulmonary consult IV steroids, nebs, start Paxlovid, Levaquin added Chest x-ray nterstitial markings are mildly prominent diffusely which probably represents a viral infection or underlying bronchitis. No focal consolidation to indicate bacterial pneumonia. The heart is upper limit normal. No displaced fractures. pleuritic chest pain CT PE ORDERED , prn analgesics Po and IV prn Anxiety Ativan 0.5 bid po prn Diet Full code DVT Eliquis Discharge Plan: Home Plan to discharge in: Greater than 2 days - Code Status/Comfort Care Code Status Assessed: Yes Physician Review: Patient Assessed, Agree with Above Assessment and Plan Critical Care: No <Negro Carrera E - Last Filed: 11/24/23 17:09> - Plan Pt seen and examined. I agree with the note by the NEEDLE LEADER. She complain of pain in the epigastrium due to ventral hernia. Gen surgery evaluated pt. Will do surgical intervention once respiratory status mproved. Pt is using 2L BNC. Continue steroid, paxlovid and oxygen. <Homer Ellis - Last Filed: 11/24/23 21:46>
--- NOTE | 2023-11-24 18:36 | RAD REPORT ---
EXAM DESCRIPTION: CT - Abdomen Pelvis Wo Contrast - 11/24/2023 1:26 pm CLINICAL HISTORY: abd pain COMPARISON: No comparisons TECHNIQUE: Thin cut axial CT imaging of the abdomen and pelvis was performed without IV contrast. Mu ltiplanar reformats were generated and reviewed. All CT scans are performed using dose optimization technique as appropriate and may include automated exposure control or mA/KV adjustment according to patient size. FINDINGS: No suspicious findings in the lung bases. The liver, spleen, adrenal glands, and pancreas show no suspicious findings. Gallbladder was surgical ly removed. Symmetric renal contour, without suspicious parenchymal findings within limits of noncontrast techniq ue. No evidence of radiopaque calculi or hydroureteronephrosis. No dilated bowel loops or bowel wall thickening. Mild free pelvic fluid nonspecific, and could be phy siologic. No free air, fluid collections or inflammatory stranding. No hernia, mass or bulky lymphade nopathy. The urinary bladder is without significant finding. No suspicious bony findings. IMPRESSION: No acute intra-abdominal process.
[2023-11-24] MEDS: ZOLPIDEM TARTRATE 10 MG TABLET PO PRN (21:38)
[2023-11-25] MEDS: HYDROCODONE/APAP 5/325 MG TAB PO PRN ×3 (00:20→16:01)
[2023-11-25] MEDS: NA CHLORIDE 0.9% 1,000 ML IV SCH ×2 (00:32→12:23)
[2023-11-25] MEDS: ALBUTEROL 2.5 MG/3 ML NEB SOL NEB SCH ×2 (01:27→07:25)
[2023-11-25] MEDS: MORPHINE 2 MG/ML SYR IV PRN ×4 (04:07→20:42)
[2023-11-25 04:28] VITALS: BMI 26.3
[2023-11-25 05:16] LABS: Absolute Lymphocytes (CBC) 0.6 K/uL (0.7-4.9); Hematocrit 39.8 % (36.0-45.0); Lymphocytes % 3.9 % (15.3-44.8); MCV 91.4 fL (80-100); MPV 7.9 fL (7.6-11.3); Platelets 317 thou/uL (152-406); RBC Red Blood Cell Count 4.36 M/uL (3.86-4.86)
[2023-11-25 06:13] LABS: BUN Blood Urea Nitrogen 17 mg/dL (7-18); Bicarbonate 28 mEq/L (21-32); Glomerular Filtration Rate 77 ml/min (=/>90); Glucose Level 159 mg/dL (74-106); NT PRO-BNP 1031 pg/mL (<125); Potassium 4.2 mEq/L (3.5-5.1); Sodium Level 139 mEq/L (136-145)
[2023-11-25 06:18] LABS: C-Reactive Protein < 2.90 mg/L (<3.00)
[2023-11-25] MEDS: LACTOBACILLUS/ACIDOPHILUS TAB PO SCH ×3 (08:00→17:40)
[2023-11-25] MEDS: APIXABAN 2.5 MG TABLET PO SCH ×2 (08:12→20:42)
[2023-11-25] MEDS: dexAMETHasone 4 MG/ML VIAL IV SCH (08:24)
[2023-11-25] MEDS: NIRMATRELVIR/RITONAVIR TABLET PO SCH ×2 (08:25→20:43)
[2023-11-25] MEDS: Levofloxacin 750mg IV 750 MG/150 ML BAG IV SCH (12:22)
--- NOTE | 2023-11-25 12:34 | P.CNS ---
Date of Consult: 11/25/23 Reason for Consult: COPD exacerbation Chief Complaint: Shortness of breath History of Present Illness: Patient is 63 years of age active smoker admitted to the floor tested positive for COVID patient also had COVID In a couple of days prior to admission started complaining of more dyspnea feeling better/denies any fever or chills Allergies ibuprofen Adverse Reaction (Verified 11/21/23 17:32) Anaphylaxis NSAIDS (Non-Steroidal Anti-Inflamma Adverse Reaction (Verified 11/21/23 17:32) Anaphylaxis Home Medications: Albuterol Neb [Proventil 0.083% Neb Soln] 2.5 mg IH Q6H 11/21/23 Zolpidem Tartrate [Ambien] 10 mg PO BEDTIME PRN PRN 11/21/23 - Past Medical/Surgical History Diabetic: No -: COPD -: Insomnia -: Cholecystectomy -: Hysterectomy - Family History Father Medical History: Heart disease Notes: emph Mother Notes: lung cancer Brother Notes: kidney cancer - Social History Smoking Status: Current every day smoker Alcohol use: No CD- Drugs: No Caffeine use: Yes Place of Residence: Home Review of Systems 10-point ROS is otherwise unremarkable General: Weakness, Malaise Respiratory: Shortness of Breath Physical Examination Temp Pulse Resp BP Pulse Ox 97.6 F 63 22 H 154/75 H 95 11/25/23 08:00 11/25/23 08:00 11/25/23 11:57 11/25/23 08:00 11/25/23 11:57 General: Alert, Oriented x3 HEENT: Atraumatic Neck: Supple Respiratory: Clear to auscultation bilaterally, Diminished Cardiovascular: No edema, Regular rate/rhythm, Normal S1 S2 Gastrointestinal: Normal bowel sounds, Soft and benign, Non-distended - Problems (1) COPD exacerbation Current Visit: Yes Status: Acute Plan: Patient is 63 years of age admitted with worsening dyspnea I suspect that she has COPD exacerbation there is no evidence of coronavirus pneumonia on the CT scan of the chest patient tested positive for coronavirus white count is mildly elevated BNP was within normal limit CT scan reviewed no acute intra-abdominal findings on CT scan however she does have DDENDUM Upon additional review, there is a small right paramidline supraumbilical hernia seen on axial image . A small umbilical hernia is also noted. Both contain fat, without changes of fat stranding or fluid. Is cleared for surgery long-acting bronchodilators I have reviewed the CT scan convinced of any infectious changes very minimal nodularity infection probably underlying COPD changes Can DC all antibiotics changed over to p.o. prednisone and inhaled bronchodilators
[2023-11-25] MEDS ORDERED: ALBUTEROL 2.5 MG/3 ML NEB SOL NEB PRN (12:39)
[2023-11-25] MEDS: DULERA 100/5 (MOMETASONE/FORMOTEROL) INHALER IH SCH ×2 (17:50→20:41)
[2023-11-25] MEDS: predniSONE 20 MG TAB PO SCH (20:42)
[2023-11-25] MEDS: ZOLPIDEM TARTRATE 10 MG TABLET PO PRN (20:45)
--- NOTE | 2023-11-25 23:25 | P.PN ---
Subjective Date of Service: 11/25/23 Chief Complaint: Shortness of breath Subjective: Improving Patient complaining of abdominal pain and reports improvement in shortness of breath. Continue current treatment regimen. <Negro Carrera - Last Filed: 11/26/23 04:22> Date of Service: 11/27/23 <Homer Ellis - Last Filed: 11/27/23 15:50> Review of Systems General: Other Eyes: Unremarkable ENT: Unremarkable Respiratory: Shortness of Breath Cardiovascular: Unremarkable Gastrointestinal: Abdominal Pain Genitourinary: Unremarkable Musculoskeletal: Unremarkable Integumentary: Unremarkable Neurological: Unremarkable Lymphatics: Unremarkable <Negro Carrera - Last Filed: 11/26/23 04:22> Physical Examination - Vital Signs Temperature: 96.9 F Blood Pressure: 149/64 Pulse: 66 Respirations: 17 Pulse Ox (%): 97 - Physical Exam General: Alert, In no apparent distress, Oriented x3, Cooperative HEENT: Atraumatic, PERRLA, EOMI Neck: Supple, JVD not distended Respiratory: Normal air movement, Diminished Cardiovascular: Regular rate/rhythm, Normal S1 S2 Capillary refill: <2 Seconds Gastrointestinal: Normal bowel sounds, Non-distended, No tenderness Musculoskeletal: No clubbing, No tenderness Integumentary: No rashes Neurological: Normal speech, Normal tone, Normal affect Lymphatics: No axilla or inguinal lymphadenopathy <Negro Carrera - Last Filed: 11/26/23 04:22> Assessment And Plan - Plan Interval history. 11/25/2023. Patient seen at bedside. Patient reports improvement in shortness of breath. Patient continues to complain of abdominal pain. CT imaging indicates " a small right paramidline supraumbilical hernia" and small umbilical hernia with both containing fat without changes of fat stranding or fluid. Surgery on board. Recommends n.p.o. after midnight. Continue current pain medication regimen. Pulmonology consulted. Further management per consultants. 11/24/2023. Patient seen at bedside. Patient continues to complain of shortness of breath. Continue current treatment regimen. Patient on O2 therapy at 2 L/min. Patient complaining of upper quadrants and epigastric pain. CT abdominal imaging pending for further evaluation. Surgeon consulted. Continue current pain medication regimen. Will await further recommendations from surgeon and production posting clerk. Continue supportive care. COVID-19 positive test (U07.1, COVID-19) with Acute Pneumonia (J12.89, Other viral pneumonia) Acute hypoxic respiratory failure secondary to COPD exacerbation versus acute bronchitis Hypoxemia Elevated CRP O2 2 L keep sats greater than 90% Pulmonary consult IV steroids, nebs, start Paxlovid, Levaquin added Chest x-ray nterstitial markings are mildly prominent diffusely which probably represents a viral infection or underlying bronchitis. No focal consolidation to indicate bacterial pneumonia. The heart is upper limit normal. No displaced fractures. pleuritic chest pain CT PE ORDERED , prn analgesics Po and IV prn Anxiety Ativan 0.5 bid po prn Diet Full code DVT Eliquis Discharge Plan: Home Plan to discharge in: Greater than 2 days - Code Status/Comfort Care Code Status Assessed: Yes Physician Review: Patient Assessed, Agree with Above Assessment and Plan Critical Care: No <Negro Carrera - Last Filed: 11/26/23 04:22> - Plan Pt seen and examined. I agree with the note by the MEAT SMOKER. Gen surgery will take pt to the OR for ventral hernia repair on 11/26/23. Continue meds for COVID. <Homer Ellis - Last Filed: 11/27/23 15:50>
[2023-11-26] MEDS: MORPHINE 2 MG/ML SYR IV PRN ×6 (00:29→23:09)
[2023-11-26 05:52] LABS: Absolute Lymphocytes (CBC) 0.6 K/uL (0.7-4.9); Hematocrit 41.2 % (36.0-45.0); MCV 91.7 fL (80-100); MPV 7.7 fL (7.6-11.3); Platelets 320 thou/uL (152-406); RBC Red Blood Cell Count 4.49 M/uL (3.86-4.86)
[2023-11-26 06:07] LABS: BUN Blood Urea Nitrogen 15 mg/dL (7-18); Bicarbonate 31 mEq/L (21-32); Glomerular Filtration Rate 81 ml/min (=/>90); Glucose Level 140 mg/dL (74-106); NT PRO-BNP 1067 pg/mL (<125); Potassium 4.3 mEq/L (3.5-5.1); Sodium Level 139 mEq/L (136-145)
[2023-11-26 06:14] LABS: C-Reactive Protein < 2.90 mg/L (<3.00)
[2023-11-26] MEDS: LACTOBACILLUS/ACIDOPHILUS TAB PO SCH ×3 (08:00→17:00)
[2023-11-26 08:42] LABS: Blood Morphology Comment NOT SEEN (NOT SEEN); Hypersegmented Neutrophils PRESENT; Platelet Estimate ADEQ; White Blood Cell Scan OK (OK)
[2023-11-26] MEDS: NIRMATRELVIR/RITONAVIR TABLET PO SCH (08:46)
[2023-11-26] MEDS: predniSONE 20 MG TAB PO SCH ×2 (08:47→20:10)
[2023-11-26] MEDS: DULERA 100/5 (MOMETASONE/FORMOTEROL) INHALER IH SCH ×2 (08:49→20:11)
[2023-11-26] MEDS: ONDANSETRON 4 MG/2 ML VIAL IV PRN (11:42)
[2023-11-26] MEDS ORDERED: CEFAZOLIN SODIUM 1 GM/VIAL ONE (12:20)
[2023-11-26] MEDS ORDERED: Ringers Lactate 1,000 ML IV ONE ×2 (12:21→14:55)
[2023-11-26] MEDS ORDERED: ROCURONIUM 50 MG/5 ML VIAL IV ONE (12:22)
[2023-11-26] MEDS ORDERED: KETAMINE HCL IN 0.9 % NACL 50 MG/5 ML SYRINGE IV ONE (12:22)
[2023-11-26] MEDS ORDERED: propofoL 200 MG/20 ML VIAL IV ONE (12:22)
[2023-11-26] MEDS ORDERED: ONDANSETRON 4 MG/2 ML VIAL ONE (12:22)
[2023-11-26] MEDS ORDERED: FENTANYL CITR 100 MCG/2 ML ONE (12:22)
[2023-11-26] MEDS ORDERED: LIDOCAINE 1% MPF 5 ML VIAL ONE (12:22)
[2023-11-26] MEDS ORDERED: KETOROLAC 30 MG/ML INJ ONE (12:22)
[2023-11-26] MEDS ORDERED: MIDAZOLAM HCL 2 MG/2 ML INJ ONE (12:22)
[2023-11-26] MEDS ORDERED: dexAMETHasone 10 MG/ML VIAL ONE (12:22)
--- NOTE | 2023-11-26 12:43 | P.PN ---
Subjective Date of Service: 11/26/23 Chief Complaint: COPD exacerbation Subjective: Improving (Patient is improving doing well shortness of breath has improved) Review of Systems General: Weakness Respiratory: Shortness of Breath Physical Examination - Vital Signs Temperature: 97.2 F Blood Pressure: 148/80 Pulse: 80 Respirations: 18 Pulse Ox (%): 98 - Physical Exam General: Alert, Oriented x3 Neck: Supple Respiratory: Clear to auscultation bilaterally, Normal air movement Assessment And Plan - Current Problems (Diagnosis) (1) COPD exacerbation Current Visit: Yes Status: Acute Plan: Patient admitted with COPD exacerbation doing well and cleared for abdominal surgery evaluate for home oxygen she will need to continue with a long-acting bronchodilator at home follow-up with me in 2 weeks will need outpatient pulmonary function test discharged on prednisone 10 mg twice a day for a week with Kira Physician Review: Patient Assessed, Agree with Above Assessment and Plan
[2023-11-26] MEDS: BUPIVACAINE 0.25% PF 30 ML VIAL ONE ×2 (13:03→13:14)
[2023-11-26] MEDS ORDERED: LABETALOL 20 MG/4ML SYRINGE IV ONE (13:31)
--- NOTE | 2023-11-26 13:46 | P.OP ---
Preoperative diagnosis: Multiple Ventral Incarcerated Hernias Postoperative diagnosis: Multiple Ventral Incarcerated Hernias Primary procedure: Laparoscopic Ventral Hernia Repairs with mesh Anesthesia: GETA + Local Estimated blood loss: <5cc Specimen: none Findings: incarcerated adipose in hernias Complications: None Implants: Bard Ventalite ST 15cm x 10cm, sorbafix x 55 tacks Transferred to: Recovery Room Condition: Good
[2023-11-26] MEDS ORDERED: GLYCOPYRROLATE 0.2 MG/ML SYR ONE ×2 (13:50)
[2023-11-26] MEDS ORDERED: NEOSTIGMINE 1 MG/ML -10 ML VIAL ONE (13:50)
[2023-11-26] MEDS: MORPHINE 4 MG/ML SYR ONE ×4 (14:05→14:36)
[2023-11-26] MEDS: HYDROMORPHONE HCL 1 MG/ML INJ ONE ×2 (14:43→14:48)
[2023-11-26] MEDS ORDERED: HYDROMORPHONE HCL 1 MG/ML INJ ONE (14:58)
--- NOTE | 2023-11-26 16:00 | OP ---
Date of Procedure: 11/26/2023 Surgeon: Carlos Parra MD, Preoperative Diagnosis: Multiple incarcerated ventral abdominal wall hernias. Postoperative Diagnosis: Multiple incarcerated ventral abdominal wall hernias. Procedure Performed: Laparoscopic ventral hernia repairs with mesh. Anesthesia: General endotracheal plus local with 0.25% Marcaine. Estimated Blood Loss: Less than 5 cc. Specimen: None. Findings: Incarcerated adipose tissue contained within 2 hernias, which were approximately 8 cm apar t. Each hernia was approximately 1 cm in size. Complications: None. Implants: Bard Ventralight ST mesh with Echo Positioning System 15 cm x 10 cm utilized as SorbaFix a bsorbable fixation tacks. Disposition: The patient transferred to recovery room in good condition. Procedure In Detail: After informed consent was obtained, patient was brought into the operating brianna m, prepped and draped in the usual sterile fashion after adequate anesthesia was achieved. Then the area of the left lower quadrant was anesthetized with 0.25% Marcaine, sharply incised. A 5 mm 0-degr ee optical trocar was introduced in the abdomen without incident or complication. Insufflation was o btained to 15 mmHg, at this time. There was no injury to vital structures upon entry into the abdome n. Additional trocar was placed in the left mid abdomen. This was similarly anesthetized, sharply i ncised and a 12 mm trocar was placed under direct visualization without incident or complication. I then proceeded to use a LigaSure device to remove adipose tissue contained within multiple ventral ab dominal midline hernias, one in the umbilical position, one in the supraumbilical position. The adip ose tissue returned to the normal peritoneal position. There was omental fat contained within these. After this was performed, the Endo Stitch with an 0 V-Loc suture was used to close the hernia defec ts and both of these imbricating the hernia sac with good approximation of tissues. Then I deployed a 15 cm x 10 cm Bard Ventralight mesh with Echo Positioning System in the central portion between the hernia defects. The balloon deployment system was deployed, at this point. I then used SorbaFix as SorbaFix fixation tacker, a total of 55 tacks to secure the mesh to the anterior abdominal wall in d ouble crown type orientation after the balloon deployment system removed. At this point, the 12 mm t rocar site was closed using a Jamar-Alcira suture passer with 0 Vicryl in an interrupted fashion w ith good approximation of tissues. The abdomen was desufflated at this point without incident or com plication. Trocars removed. All skin incisions were then copiously irrigated and closed with a 4-0 Monocryl in a running fashion. Dermabond was placed over top. The patient tolerated the procedure w ell without incident or complication, was transferred to PACU in good condition. All counts were cor rect at the end of the case. ARINA/JJ Voice ID: [id number] Report ID: [id number]
[2023-11-26] MEDS: ZOLPIDEM TARTRATE 10 MG TABLET PO PRN (20:10)
--- NOTE | 2023-11-26 20:54 | P.PN ---
Subjective Date of Service: 11/26/23 Chief Complaint: COPD exacerbation Subjective: No new changes Patient complaining of nausea and abdominal pain. Continue current treatment regimen. <Negro Carrera - Last Filed: 11/26/23 20:55> Date of Service: 11/26/23 <Homer Ellis - Last Filed: 11/26/23 22:29> Review of Systems General: Unremarkable Eyes: Unremarkable ENT: Unremarkable Respiratory: Cough, Shortness of Breath Cardiovascular: Unremarkable Gastrointestinal: Nausea, Abdominal Pain Genitourinary: Unremarkable Musculoskeletal: Unremarkable Integumentary: Unremarkable Neurological: Unremarkable Lymphatics: Unremarkable <Negro Carrera - Last Filed: 11/26/23 20:55> Physical Examination - Vital Signs Temperature: 97.4 F Blood Pressure: 170/76 Pulse: 51 Respirations: 16 Pulse Ox (%): 94 - Physical Exam General: Alert, In no apparent distress, Oriented x3, Cooperative HEENT: Atraumatic, PERRLA, EOMI Neck: Supple, JVD not distended Respiratory: Normal air movement, Diminished Cardiovascular: No edema, Regular rate/rhythm, Normal S1 S2 Capillary refill: <2 Seconds Gastrointestinal: Normal bowel sounds, Tenderness Musculoskeletal: No clubbing, No contractures, No tenderness Integumentary: No rashes, No significant lesion Neurological: Normal speech, Normal tone, Normal affect Lymphatics: No axilla or inguinal lymphadenopathy <Negro Carrera - Last Filed: 11/26/23 20:55> Assessment And Plan - Plan Interval history. 11/26/2023. Patient seen at bedside. Php Engineer on board. Patient currently denies any shortness of breath. Patient on O2 therapy at 2 L/min. Patient complained of abdominal pain and nausea earlier in the day. Patient was diagnosed with Multiple Ventral Incarcerated Hernias. Patient had Laparoscopic Ventral Hernia Repairs with mesh with surgeon. Patient tolerated procedure. Continue current pain medication regimen. Further management per surgeon. 11/25/2023. Patient seen at bedside. Patient reports improvement in shortness of breath. Patient continues to complain of abdominal pain. CT imaging indicates " a small right paramidline supraumbilical hernia" and small umbilical hernia with both containing fat without changes of fat stranding or fluid. Surgery on board. Recommends n.p.o. after midnight. Continue current pain medication regimen. Pulmonology consulted. Further management per consultants. 11/24/2023. Patient seen at bedside. Patient continues to complain of shortness of breath. Continue current treatment regimen. Patient on O2 therapy at 2 L/min. Patient complaining of upper quadrants and epigastric pain. CT abdominal imaging pending for further evaluation. Surgeon consulted. Continue current pain medication regimen. Will await further recommendations from surgeon and java web developer. Continue supportive care. COVID-19 positive test (U07.1, COVID-19) with Acute Pneumonia (J12.89, Other viral pneumonia) Acute hypoxic respiratory failure secondary to COPD exacerbation versus acute bronchitis Hypoxemia Elevated CRP O2 2 L keep sats greater than 90% Pulmonary consult IV steroids, nebs, start Paxlovid, Levaquin added Chest x-ray nterstitial markings are mildly prominent diffusely which probably represents a viral infection or underlying bronchitis. No focal consolidation to indicate bacterial pneumonia. The heart is upper limit normal. No displaced fractures. pleuritic chest pain CT PE ORDERED , prn analgesics Po and IV prn Anxiety Ativan 0.5 bid po prn Diet Full code DVT Eliquis Discharge Plan: Home Plan to discharge in: Greater than 2 days - Code Status/Comfort Care Code Status Assessed: Yes Physician Review: Patient Assessed, Agree with Above Assessment and Plan Critical Care: No <Negro Carrera E - Last Filed: 11/26/23 20:55> - Plan Pt irene nd examined. I agree with the note by the BEHAVIORAL SCIENCES INSTRUCTOR. Pt is using 2L BNC. Gen surgery will take pt to the OR on 11/26/23 to fix the ventral hernia. <Homer Ellis - Last Filed: 11/26/23 22:29>
[2023-11-26] MEDS: HYDROCODONE/APAP 5/325 MG TAB PO PRN (21:19)
[2023-11-26] MEDS: LORAZEPAM 0.5 MG TABLET PO PRN (23:09)
[2023-11-27] MEDS: MORPHINE 2 MG/ML SYR IV PRN ×7 (02:47→21:22)
[2023-11-27] MEDS: HYDROCODONE/APAP 5/325 MG TAB PO PRN (04:52)
[2023-11-27] MEDS: LACTOBACILLUS/ACIDOPHILUS TAB PO SCH ×3 (08:53→17:09)
[2023-11-27] MEDS: predniSONE 20 MG TAB PO SCH ×2 (08:53→21:22)
[2023-11-27] MEDS: DULERA 100/5 (MOMETASONE/FORMOTEROL) INHALER IH SCH ×2 (08:54→21:00)
--- NOTE | 2023-11-27 12:22 | P.PN ---
Subjective Date of Service: 11/27/23 Chief Complaint: COPD exacerbation Pt is resting comfortably in bed. She complains of abd pain. Gen surgery did lap ventral hernia repair. Pt is using 2L BNC. No other complaints. Review of Systems Unremarkable General: Unremarkable Eyes: Unremarkable ENT: Unremarkable Respiratory: Shortness of Breath, Unremarkable Cardiovascular: Unremarkable Gastrointestinal: Abdominal Pain Genitourinary: Unremarkable Musculoskeletal: Unremarkable Integumentary: Unremarkable Neurological: Unremarkable Lymphatics: Unremarkable Physical Examination - Vital Signs Temperature: 98.7 F Blood Pressure: 138/71 Pulse: 78 Respirations: 18 Pulse Ox (%): 94 - Physical Exam General: Alert, In no apparent distress, Oriented x3 HEENT: Atraumatic, Normocephalic, PERRLA Neck: Supple, 2+ carotid pulse no bruit Respiratory: Clear to auscultation bilaterally, Normal air movement Cardiovascular: No edema, Normal pulses, Regular rate/rhythm, Normal S1 S2 Capillary refill: <2 Seconds Gastrointestinal: Soft and benign, Non-distended, Tenderness (Abd binder is inplace. s/p lap ventral hernia repair) Musculoskeletal: No clubbing, No swelling Integumentary: No rashes, No breakdown Neurological: Normal gait, Normal speech, Normal strength at 5/5 x4 extr Lymphatics: No axilla or inguinal lymphadenopathy Assessment And Plan - Plan COVID-19 positive test (U07.1, COVID-19) with Acute Pneumonia (J12.89, Other viral pneumonia): will continue enhanced resp precaution, Paxlovid, levaquin, Steroid, oxygen and albuterol. Chest x-ray nterstitial markings are mildly prominent diffusely which probably represents a viral infection or underlying bronchitis. No focal consolidation to indicate bacterial pneumonia. The heart is upper limit normal. No displaced fractures. CT chest is negative for PE. no pneumonia. Acute hypoxic respiratory failure secondary to COPD exacerbation versus acute bronchitis; Continue steroid, neb and oxygen. Pleuritic chest pain: Likely du eto pneumonia. CTA chest is negative for PE. Continue prn pain Multiple incarcerated Ventral hernia: S/p repair by Dr. Lucia. POD #1. Continue post-op care. Anxiety: Continue Ativan 0.5 bid po prn Code: Full code DVT ppx: Eliquis Dispo: Pending hospital course Physician Review: Patient Assessed, Agree with Above Assessment and Plan
--- NOTE | 2023-11-27 13:52 | EKG ---
Test Date: 2023-11-21 Test Time: 13:11:34 Orthotic Assistant: JULEE MEASUREMENT RESULTS: Intervals: Rate: 77 NC: 160 QRSD: 90 QT: 380 QTc: 430 Olar: P: 78 NC: 160 QRS: 96 T: 53 INTERPRETIVE STATEMENTS: Sinus rhythm with fusion complexes Rightward axis Borderline ECG No previous ECG available for comparison Electronically Signed On 11-27-23 13:30:14 FRAME CLEANER by Quang Qureshi
[2023-11-27] MEDS: LORAZEPAM 0.5 MG TABLET PO PRN (23:33)
[2023-11-28] MEDS: MORPHINE 2 MG/ML SYR IV PRN ×3 (01:06→07:59)
[2023-11-28 03:52] LABS: Absolute Lymphocytes (CBC) 0.6 K/uL (0.7-4.9); Hematocrit 41.4 % (36.0-45.0); Lymphocytes % 4.7 % (15.3-44.8); MCV 91.2 fL (80-100); MPV 7.9 fL (7.6-11.3); Platelets 302 thou/uL (152-406); RBC Red Blood Cell Count 4.55 M/uL (3.86-4.86)
[2023-11-28 04:10] LABS: Potassium 4.6 mEq/L (3.5-5.1)
[2023-11-28] MEDS: LACTOBACILLUS/ACIDOPHILUS TAB PO SCH ×2 (07:59→12:13)
[2023-11-28] MEDS: predniSONE 20 MG TAB PO SCH (07:59)
[2023-11-28] MEDS: DULERA 100/5 (MOMETASONE/FORMOTEROL) INHALER IH SCH (08:00)
--- NOTE | 2023-11-28 08:16 | P.PN ---
Subjective Date of Service: 11/28/23 Chief Complaint: COPD exacerbation Subjective: Improving (Patient is doing better s/p dural hernia repair breathing is better) Review of Systems General: Weakness Respiratory: Shortness of Breath Gastrointestinal: Abdominal Pain Physical Examination - Vital Signs Temperature: 97.9 F Blood Pressure: 138/68 Pulse: 56 Respirations: 16 Pulse Ox (%): 96 - Physical Exam General: Alert, Oriented x3 HEENT: Atraumatic Neck: Supple Respiratory: Clear to auscultation bilaterally, Diminished Assessment And Plan - Current Problems (Diagnosis) (1) COPD exacerbation Current Visit: Yes Status: Acute Plan: Patient is doing better we will check off oxygen ambulate qualify for O2 if needed chemistries labs reviewed she had to go home on Dulera discharged home on trilogy to follow-up with me in 2 weeks outpatient pulmonary function testing sat is 96% on room air Discharge Plan: Home Physician Review: Patient Assessed, Agree with Above Assessment and Plan
--- NOTE | 2023-11-28 10:26 | P.PN ---
Subjective Date of Service: 11/28/23 Chief Complaint: COPD exacerbation Pt is resting comfortably in bed. She is feeling better. Still using 1.5l of oxygen. Pt cannot afford home oxygen due to lack of insurance. Will wean her off oxygen before discharge. Pulm is recommending Dulera and trilogy. No other complaints. Review of Systems Unremarkable General: Unremarkable Eyes: Unremarkable ENT: Unremarkable Respiratory: Shortness of Breath Cardiovascular: Unremarkable Gastrointestinal: Unremarkable Genitourinary: Unremarkable Musculoskeletal: Unremarkable Integumentary: Unremarkable Neurological: Unremarkable Lymphatics: Unremarkable Physical Examination - Vital Signs Temperature: 97.9 F Blood Pressure: 138/68 Pulse: 56 Respirations: 16 Pulse Ox (%): 95 - Physical Exam General: Alert, In no apparent distress, Oriented x3 HEENT: Atraumatic, Normocephalic, PERRLA Neck: Supple, 2+ carotid pulse no bruit Respiratory: Clear to auscultation bilaterally, Normal air movement Cardiovascular: No edema, Normal pulses, Regular rate/rhythm, Normal S1 S2 Capillary refill: <2 Seconds Gastrointestinal: Normal bowel sounds, Soft and benign, Non-distended, Tenderness (Abdominal binder is in place) Musculoskeletal: No clubbing, No swelling Integumentary: No rashes, No breakdown Neurological: Normal gait, Normal speech, Normal strength at 5/5 x4 extr Lymphatics: No axilla or inguinal lymphadenopathy Assessment And Plan - Plan COVID-19 positive test (U07.1, COVID-19) with Acute Pneumonia (J12.89, Other viral pneumonia): will continue enhanced resp precaution, Paxlovid, levaquin, Steroid, 1.5L BNC oxygen and albuterol. Chest x-ray interstitial markings are mildly prominent diffusely which probably represents a viral infection or underlying bronchitis. No focal consolidation to indicate bacterial pneumonia. The heart is upper limit normal. No displaced fractures. CT chest is negative for PE. no pneumonia. Acute hypoxic respiratory failure secondary to COPD exacerbation versus acute bronchitis; Continue steroid, mometasone/formetorol, duoneb and oxygen. Pulm is following. Pulm wanst pt to be discharged with Dulera and trilogy. Pleuritic chest pain: Likely du eto pneumonia. CTA chest is negative for PE. Continue prn pain Multiple incarcerated Ventral hernia: S/p repair by Dr. Lucia. POD #2. Continue post-op care. Anxiety: Continue Ativan 0.5 bid po prn Code: Full code DVT ppx: [place] Dispo: Pending hospital course. Pt is not able to afford home oxygen. She does not have medical insurance. Will wean her off oxygen before discharge. Physician Review: Patient Assessed, Agree with Above Assessment and Plan
--- NOTE | 2023-11-28 10:38 | P.PN ---
Subjective Date of Service: 11/27/23 Chief Complaint: COPD exacerbation Subjective: Improving (no new complaints, pain much improved from pre-op) Physical Examination - Vital Signs Temperature: 97.9 F Blood Pressure: 138/68 Pulse: 56 Respirations: 16 Pulse Ox (%): 95 - Physical Exam General: Alert, In no apparent distress, Oriented x3, Cooperative Gastrointestinal: Other (soft, mild appropriate TTP, ND, no rebound, no guarding, incisions clean and dry, no hernias) Assessment And Plan - Current Problems (Diagnosis) (1) Incarcerated ventral hernia Current Visit: Yes Status: Acute Plan: S/p Laparoscopic ventral hernia repair with mesh on 11/26/2023 - advance diet - stool softners - medical management per hospitalist - lifting and post op instructions reviewed with patient - incision care reviewed with patient - ok to DC from surgical standpoint when medical issues resolved - smoking cessation reviewed Physician Review: Patient Assessed, Agree with Above Assessment and Plan
[2023-11-28] MEDS: HYDROCODONE/APAP 5/325 MG TAB PO PRN ×2 (12:13→16:16)
[2023-11-28 12:20] VITALS: O2SAT 92
--- NOTE | 2023-11-28 14:56 | P.DS ---
Admission Date: 11/21/23 Discharge Date: 11/28/23 Disposition: ROUTINE DISCHARGE Discharge Condition: GOOD Reason for Admission: COPD exacerbation Brief History of Present Illness: Patient is a 63-year-old female came to the hospital with chest pain. Patient was having shortness of breath and some chest pain. Patient was diagnosed with pneumonia about a week ago. Patient tested in the emergency room positive for COVID-pneumonia. Patient has some nausea and vomiting but that has resolved. Patient does have some pleuritic chest pain as well. Patient will be admitted to the hospital for COVID-19 pneumonia. Hospital Course: Patient is a 63yo female with past medical history of anxiety who presents with shortness of breath and some chest pain. Patient was diagnosed with pneumonia about a week ago. She also had nausea and vomiting that later resolved. On admission, pt complained of pleuritic chest pain. Lab studies showed positive COVID. We continued enhanced resp precaution, Paxlovid, levaquin, Steroid, 1.5L BNC oxygen and albuterol. Chest x-ray interstitial markings were mildly prominent diffusely which suggested a viral infection or underlying bronchitis. No focal consolidation to indicate bacterial pneumonia. CT chest was negative for PE. no pneumonia. We consulted Software Licensing Specialist for acute hypoxic respiratory failure secondary to COPD exacerbation versus acute bronchitis. Software Licensing Specialist added Dulera and prescribed trelegy. Pt later developed abdominal pain due to ventral hernia. CT abd was unremarkable but the ventral hernia was painful to touch. We suspeceted possible incercerated hernia and consulted Gen surgery who took pt to the OR for multiple incarcerated ventral hernia repair. Pt did well post-op and tolerated diet. We weaned her off oxygen and her oxygen saturation r emained above 92% on room air. She was in NAD prior to discharge. Vital Signs/Physical Exam: Temp Pulse Resp BP Pulse Ox 97.8 F 61 16 138/63 92 11/28/23 12:00 11/28/23 12:00 11/28/23 13:13 11/28/23 12:00 11/28/23 13:13 Laboratory Data at Discharge: WBC 13.60 thou/uL (4.3-10.9) H 11/28/23 02:58 Hgb 13.9 g/dL (12.0-15.0) 11/28/23 02:58 Hct 41.4 % (36.0-45.0) 11/28/23 02:58 Plt Count 302 thou/uL (152-406) 11/28/23 02:58 Sodium 139 mEq/L (136-145) 11/28/23 02:58 Potassium 4.6 mEq/L (3.5-5.1) 11/28/23 02:58 BUN 20 mg/dL (7-18) H 11/28/23 02:58 Creatinine 0.79 mg/dL (0.55-1.02) 11/28/23 02:58 Glucose 137 mg/dL (74-106) H 11/28/23 02:58 Total Bilirubin 0.3 mg/dL (0.2-1.0) 11/22/23 05:55 AST 13 U/L (15-37) L 11/22/23 05:55 ALT 116 U/L (13-56) H 11/22/23 05:55 Alkaline Phosphatase 91 U/L (45-117) 11/22/23 05:55 Home Medications: Albuterol Neb [Proventil 0.083% Neb Soln] 2.5 mg IH Q6H 11/21/23 Zolpidem Tartrate [Ambien*] 10 mg PO BEDTIME PRN PRN 11/21/23 Fluticasone/Umeclidin/Vilanter [Trelegy Ellipta 100-62.5-25] 1 each IH DAILY 30 Days #30 aero 11/28/23 New Medications: Fluticasone/Umeclidin/Vilanter [Trelegy Ellipta 100-62.5-25] 1 each IH DAILY 30 Days #30 aero Diet: AHA Activity: No lifting more than 10 lbs Followup: Carlos Parra MD [ACTIVE - CAN ADMIT] - Jesus Acosta DO [Primary Care Provider] -
[2023-11-28 16:59] VITALS: BP 116/56; TEMP 98.1
[2023-11-29] MEDS ORDERED: APIXABAN 5 MG TABLET PO SCH (21:00)
== END 2023-11-28 18:09 | disposition home or self-care (01) | DRG 981 ==
LOC: ER 13:05 → ERHOLD 16:17 → 4TH 16:46
PROVIDERS: ADMIT Hospitalist; ATTEND Hospitalist
PROC: 0WUF4JZ Supplement Abdominal Wall with Synthetic Substitute, Percutaneous Endoscopic Approach (ICD-10-PCS; principal; 2023-11-26 13:00)
DX: U07.1 COVID-19 (principal); J12.82 Pneumonia due to coronavirus disease 2019; J96.01 Acute respiratory failure with hypoxia; J44.1 Chronic obstructive pulmonary disease with (acute) exacerbation; J44.0 Chronic obstructive pulmonary disease with (acute) lower respiratory infection; K43.6 Other and unspecified ventral hernia with obstruction, without gangrene; J20.9 Acute bronchitis, unspecified; I10 Essential (primary) hypertension; F41.9 Anxiety disorder, unspecified; F17.210 Nicotine dependence, cigarettes, uncomplicated; Z88.8 Allergy status to other drugs, medicaments and biological substances; Z90.49 Acquired absence of other specified parts of digestive tract; Z90.710 Acquired absence of both cervix and uterus
CPT/HCPCS: 36415; 71045; 71275; 74176; 80048; 80053; 83880; 84145; 84484; 85025; 85379; 86140; 87804; 87811; 93005; 94640; 94760; 96374; 96375; 99285; J0690; J1100; J1170; J2001; J2250; J2270; J2405; J2704; J2710; J2920; J2930; J3010; J3535; J7030; J7050; J7120; J7512; J7613; J7644; J8499; Q9967